=== PATIENT | female | born 1945 | race Caucasian/White ===

== ENCOUNTER → 2017-07-13 12:26 | Outpatient (CLI) | payer MEDICARE, SELFPAY ==
[2017-07-13 18:12] LABS: Amphetamine/Metha Screen,Urine Negative ng/mL (<1000); Barbiturates Screen,Urine Negative ng/mL (<200); Benzodiazepines Screen,Urine Negative ng/mL (200); Cannabinoid Screen,Urine Negative ng/mL (<50); Cocaine Screen,Urine Negative ng/g (<300); Methadone Screen,Urine Negative ng/mL (<300); Opiate Screen,Urine Positive ng/mL (<300); Phencyclidine Screen,Urine Negative ng/mL (<25)
== END ==
PROVIDERS: Visit Provider Emergency Medicine
DX: M51.36 Other intervertebral disc degeneration, lumbar region (principal)
CPT/HCPCS: 80305

== ENCOUNTER → 2017-08-10 13:58 | Outpatient (CLI) | payer MEDICARE, MEDICAID, SELFPAY ==
[2017-08-10 18:37] LABS: Amphetamine/Metha Screen,Urine Negative ng/mL (<1000); Barbiturates Screen,Urine Negative ng/mL (<200); Benzodiazepines Screen,Urine Negative ng/mL (200); Cannabinoid Screen,Urine Negative ng/mL (<50); Cocaine Screen,Urine Negative ng/g (<300); Methadone Screen,Urine Negative ng/mL (<300); Opiate Screen,Urine Positive ng/mL (<300); Phencyclidine Screen,Urine Negative ng/mL (<25)
== END ==
PROVIDERS: Visit Provider Emergency Medicine
DX: M51.36 Other intervertebral disc degeneration, lumbar region (principal)
CPT/HCPCS: 80305

== ENCOUNTER → 2017-09-05 13:45 | Outpatient (REF) | payer MEDICARE, SELFPAY ==
[2017-09-06 19:48] LABS: Amphetamine/Metha Screen,Urine Negative ng/mL (<1000); Barbiturates Screen,Urine Negative ng/mL (<200); Benzodiazepines Screen,Urine Negative ng/mL (200); Cannabinoid Screen,Urine Negative ng/mL (<50); Cocaine Screen,Urine Negative ng/g (<300); Methadone Screen,Urine Negative ng/mL (<300); Opiate Screen,Urine Positive ng/mL (<300); Phencyclidine Screen,Urine Negative ng/mL (<25)
== END ==
LOC: LAB 13:45
PROVIDERS: Visit Provider Emergency Medicine
DX: M51.36 Other intervertebral disc degeneration, lumbar region (principal)
CPT/HCPCS: 80305

== ENCOUNTER → 2017-09-05 16:03 | Outpatient (REF) | payer MEDICARE, SELFPAY ==
[2017-09-05 18:09] LABS: Basophils % 0.4 % (0.1-2.0); Eosinophils # 0.2 K/mm3 (0.0-0.4); Eosinophils % 2.9 % (0.1-12.0); Hematocrit 37.3 % (37.0-47.0); Hemoglobin 12.8 g/dL (12.2-16.2); Lymphocytes # 1.7 K/mm3 (0.7-4.5); Mean Corpuscular HGB Conc 34.4 g/dL (31.8-35.4); Mean Corpuscular Hemoglobin 35.2 pg (27.0-31.2); Mean Corpuscular Volume 102.3 fl (81-99); Monocytes # 0.3 K/mm3 (0.1-1.0); Monocytes % 5.8 % (1.7-9.3); Neutrophils # 3.4 K/mm3 (1.8-7.8); Neutrophils % 60.9 % (37.0-80.0); Platelet Count 282 K/mm3 (142-424); Red Blood Count 3.64 M/mm3 (4.20-5.40); Red Cell Distribution Width 13.1 % (11.5-17.5); White Blood Count 5.7 K/mm3 (4.8-10.8)
[2017-09-05 19:13] LABS: Erythrocyte Sedimentation Rate 36 mm/hr (0-30)
[2017-09-05 19:40] LABS: Alanine Aminotransferase 28 U/L (12-78); Albumin Level 4.7 gm/dL (3.4-5.0); Albumin/Globulin Ratio 1.3 (1.1-1.8); Alkaline Phosphatase 72 U/L (46-116); Anion Gap 23.4 mEq/L (5-15); Aspartate Amino Transferase 25 U/L (15-37); Bilirubin,Total 0.2 mg/dL (0.2-1.0); Blood Urea Nitrogen 29 mg/dL (7-18); Calcium 9.8 mg/dL (8.5-10.1); Carbon Dioxide 17 mmol/L (21.0-32.0); Chloride 94 mmol/L (98-107); Estimated Glomerular Filt Rate 26 ml/min (>60); Free T4 (Free Thyroxine) 0.84 ng/dl (0.76-1.46); GFR (African American) 31 ML/MIN (>60); Globulin 3.7 gm/dl (1.3-3.2); Glucose 80 mg/dL (74-106); Potassium 4.4 mmoL/L (3.5-5.1); Sodium 130 mmol/L (136-145); Total Protein,Serum 8.4 gm/dL (6.4-8.2)
[2017-09-07 20:10] LABS: Vitamin D 25 Hydroxy 12.7 ng/mL (30.0-100.0)
[2017-09-07 20:11] LABS: Vitamin B12 368 pg/mL (232-1245)
== END ==
LOC: LAB 16:03
PROVIDERS: Visit Provider Emergency Medicine
DX: M54.9 Dorsalgia, unspecified (principal); I10 Essential (primary) hypertension; M51.36 Other intervertebral disc degeneration, lumbar region
CPT/HCPCS: 80053; 80305; 82607; 82652; 84439; 84443; 85025; 85651

== ENCOUNTER → 2017-09-26 15:53 | Outpatient (REF) | payer MEDICARE, MEDICAID, SELFPAY ==
[2017-09-26 19:16] LABS: Amphetamine/Metha Screen,Urine Negative ng/mL (<1000); Barbiturates Screen,Urine Negative ng/mL (<200); Benzodiazepines Screen,Urine Negative ng/mL (200); Cannabinoid Screen,Urine Negative ng/mL (<50); Cocaine Screen,Urine Negative ng/g (<300); Methadone Screen,Urine Negative ng/mL (<300); Opiate Screen,Urine Positive ng/mL (<300); Phencyclidine Screen,Urine Negative ng/mL (<25)
== END ==
LOC: LAB 15:53
PROVIDERS: Visit Provider Emergency Medicine
DX: M51.36 Other intervertebral disc degeneration, lumbar region (principal)
CPT/HCPCS: 80305

== ENCOUNTER → 2017-11-08 08:46 | Outpatient (CLI) | payer MEDICARE, MEDICAID, SELFPAY ==
--- NOTE | 2017-11-08 08:54 | FL_ITS ---
[place] barium swallow Ordering Physician: Aiden Hernandez MD Patient Age: 72 years: Female HISTORY: ITS.REASON: dysphagia The patient reports that discomfort mid thoracic esophagus. This occurs after meal rather than during meal? Food sticks in this area at times. TECHNIQUE: Barium swallow, esophagram evaluation of esophagus under fluoroscopy performed by Dr. Alcala. 1 minute 37 seconds fluoroscopy time. COMPARISON :No previous esophageal studies. Chest film 08/11/2016 used for comparison. FINDINGS Cervical Esophagus. Prominent cricopharyngeus muscle noted. It indents the posterior cervical esophagus does relax for the most part as a swallow progresses.. Fair strength of the swallowing mechanism. There is some mild residual in the vallecula and piriform sinuses which clears with repeat swallowing. No aspiration. The patient has had previous anterior discectomy C6/7. However this does NOT appear to significantly impinge upon the posterior aspect of the cervical esophagus. I noted the anterior marginal osteophytes C5-C6 Thoracic Esophagus. : No new lesions evident. No restriction. Normal anatomy. Normal peristalsis. No hiatal hernia with Valsalva maneuver during drinking Patient does have moderate phrenic ampulla with smooth tapering just above this. However this region throughout the distal esophagus distensible. No ulcers,. No prominent nor irregular mucosal folds evident. No remarkable GE reflux was observed during the course of the study. Brief viewing of stomach under fluoroscopy show no prominent findings here. . IMPRESSION 1 patient reports discomfort and symptoms mid thoracic esophagus. -However thoracic esophagus appears satisfactory on today's barium swallow with no significant findings. No lesion. No spasm encountered 2. At cervical esophagus there is a generous cricopharyngeus muscle seen with swallowing, but it does seem to relax for the most part as the swallow progresses
== END ==
PROVIDERS: PCP Emergency Medicine; Visit Provider Emergency Medicine
DX: R13.10 Dysphagia, unspecified (principal)
CPT/HCPCS: 74220

== ENCOUNTER → 2017-12-12 15:01 | Outpatient (REF) | payer MEDICARE, SELFPAY ==
[2017-12-12 19:04] LABS: Amphetamine/Metha Screen,Urine Negative ng/mL (<1000); Barbiturates Screen,Urine Negative ng/mL (<200); Benzodiazepines Screen,Urine Negative ng/mL (<200); Cannabinoid Screen,Urine Negative ng/mL (<50); Cocaine Screen,Urine Negative ng/mL (<300); Methadone Screen,Urine Negative ng/mL (<300); Opiate Screen,Urine Positive ng/mL (<300); Phencyclidine Screen,Urine Negative ng/mL (<25)
== END ==
LOC: LAB 15:01
PROVIDERS: Visit Provider Emergency Medicine
DX: M51.36 Other intervertebral disc degeneration, lumbar region (principal)
CPT/HCPCS: 80305

== ENCOUNTER → 2018-01-08 15:28 | Outpatient (REF) | payer MEDICARE, SELFPAY ==
[2018-01-08 19:21] LABS: Amphetamine/Metha Screen,Urine Negative ng/mL (<1000); Barbiturates Screen,Urine Negative ng/mL (<200); Benzodiazepines Screen,Urine Negative ng/mL (<200); Cannabinoid Screen,Urine Negative ng/mL (<50); Cocaine Screen,Urine Negative ng/mL (<300); Methadone Screen,Urine Negative ng/mL (<300); Opiate Screen,Urine Positive ng/mL (<300); Phencyclidine Screen,Urine Negative ng/mL (<25)
== END ==
LOC: LAB 15:28
PROVIDERS: Visit Provider Emergency Medicine
DX: M51.36 Other intervertebral disc degeneration, lumbar region (principal)
CPT/HCPCS: 80305

== ENCOUNTER → 2018-02-06 19:38 | Outpatient (REF) | payer MEDICARE, SELFPAY ==
[2018-02-06 22:35] LABS: Amphetamine/Metha Screen,Urine Negative ng/mL (<1000); Barbiturates Screen,Urine Negative ng/mL (<200); Benzodiazepines Screen,Urine Negative ng/mL (<200); Cannabinoid Screen,Urine Negative ng/mL (<50); Cocaine Screen,Urine Negative ng/mL (<300); Methadone Screen,Urine Negative ng/mL (<300); Opiate Screen,Urine Positive ng/mL (<300); Phencyclidine Screen,Urine Negative ng/mL (<25)
== END ==
LOC: LAB 19:38
PROVIDERS: PCP Nurse Practitioner Family; Visit Provider Nurse Practitioner Family
DX: M54.5 Low back pain (principal)
CPT/HCPCS: 80305

== ENCOUNTER → 2018-03-14 13:51 | Outpatient (CLI) | payer MEDICARE, SELFPAY ==
--- NOTE | 2018-03-14 13:57 | XR_ITS ---
EXAM: XR lumbar spine 2-3V HISTORY: Low back pain ITS.REASON: back pain from fall ORDERING PHYSICIAN: Tana Austin PATIENT AGE: 72 years COMPARISON: 09/01/16 FINDINGS: Dextroscoliosis measuring 22 degrees with degenerative disc disease at L3-L4 L4-L5 and L5-S1. Prior posterior fusion at L5-S1 with interpedicular screws and disc spacer device present there is lumbarization of S1. No fracture or dislocation. No lytic or blastic change. Overall no significant change from the previous exam. There are 2 calcific densities inferior to the left L1 transverse process and could be due to renal stones measuring up to 5 mm. IMPRESSION: Dextroscoliosis with degenerative disc disease and postsurgical changes overall not significant change. Possible left nephrolithiasis
--- NOTE | 2018-03-14 13:57 | XR_ITS ---
XR hip LT 2-3V w/pelvis HISTORY: Left hip pain ITS.REASON: hip pain ORDERING PHYSICIAN: Tana Austin PATIENT AGE: 72 years FINDINGS: There is a bipolar prosthesis present which is in good alignment. No evidence of orthopedic complications. Prior fusion L4-L5. There are mild osteoarthritic changes of the right hip as seen on the frontal view of the pelvis. There is lumbar scoliosis convex right with degenerative changes in the lumbar spine. IMPRESSION: No acute finding. Degenerative changes as described above. No acute finding of left hip prosthesis with no change from 08/03/2016
== END ==
PROVIDERS: PCP Nurse Practitioner Family; Visit Provider Nurse Practitioner Family
DX: M25.552 Pain in left hip (principal); M51.36 Other intervertebral disc degeneration, lumbar region
CPT/HCPCS: 72100; 73502

== ENCOUNTER → 2018-04-10 18:11 | Outpatient (CLI) | payer MEDICARE, SELFPAY ==
[2018-04-10 19:15] LABS: Blood Urea Nitrogen 25 mg/dL (7-18); Calcium 8.7 mg/dL (8.5-10.1); Carbon Dioxide 18 mmol/L (21.0-32.0); Chloride 106 mmol/L (98-107); Creatinine,Serum 1.83 mg/dL (0.55-1.02); Estimated Glomerular Filt Rate 27 ml/min (>60); GFR (African American) 33 ML/MIN (>60); Glucose 83 mg/dL (74-106); Sodium 139 mmol/L (136-145)
[2018-04-10 21:50] LABS: Amphetamine/Metha Screen,Urine Negative ng/mL (<1000); Barbiturates Screen,Urine Negative ng/mL (<200); Benzodiazepines Screen,Urine Negative ng/mL (<200); Cannabinoid Screen,Urine Negative ng/mL (<50); Cocaine Screen,Urine Negative ng/mL (<300); Methadone Screen,Urine Negative ng/mL (<300); Opiate Screen,Urine Positive ng/mL (<300); Phencyclidine Screen,Urine Negative ng/mL (<25)
== END ==
PROVIDERS: Visit Provider Emergency Medicine
DX: N28.9 Disorder of kidney and ureter, unspecified (principal); M51.36 Other intervertebral disc degeneration, lumbar region
CPT/HCPCS: 80048; 80305

== ENCOUNTER → 2018-06-10 17:31 | Outpatient (CLI) | payer MEDICARE, SELFPAY ==
[2018-06-10 18:25] LABS: Amphetamine/Metha Screen,Urine Negative ng/mL (<1000); Barbiturates Screen,Urine Negative ng/mL (<200); Benzodiazepines Screen,Urine Negative ng/mL (<200); Cannabinoid Screen,Urine Negative ng/mL (<50); Cocaine Screen,Urine Negative ng/mL (<300); Methadone Screen,Urine Negative ng/mL (<300); Opiate Screen,Urine Positive ng/mL (<300); Phencyclidine Screen,Urine Negative ng/mL (<25)
== END ==
PROVIDERS: Visit Provider Nurse Practitioner Family
DX: Z79.899 Other long term (current) drug therapy (principal)
CPT/HCPCS: 80305

== ENCOUNTER → 2018-09-10 18:10 | Outpatient (CLI) | payer MEDICARE, SELFPAY ==
[2018-09-10 20:56] LABS: Amphetamine/Metha Screen,Urine Negative ng/mL (<1000); Barbiturates Screen,Urine Negative ng/mL (<200); Benzodiazepines Screen,Urine Negative ng/mL (<200); Cannabinoid Screen,Urine Negative ng/mL (<50); Cocaine Screen,Urine Negative ng/mL (<300); Methadone Screen,Urine Negative ng/mL (<300); Opiate Screen,Urine Positive ng/mL (<300); Phencyclidine Screen,Urine Negative ng/mL (<25)
== END ==
PROVIDERS: Visit Provider Emergency Medicine
DX: Z79.899 Other long term (current) drug therapy (principal)
CPT/HCPCS: 80305

== ENCOUNTER → 2018-09-12 13:32 | Outpatient (CLI) | payer MEDICARE, SELFPAY ==
[2018-09-12 15:41] LABS: Anion Gap 16.5 mEq/L (5-15); Blood Urea Nitrogen 33 mg/dL (7-18); Carbon Dioxide 22 mmol/L (21.0-32.0); Chloride 105 mmol/L (98-107); Estimated Glomerular Filt Rate 23 ml/min (>60); GFR (African American) 28 ML/MIN (>60); Glucose 89 mg/dL (74-106); Potassium 4.5 mmoL/L (3.5-5.1); Sodium 139 mmol/L (136-145)
== END ==
PROVIDERS: Visit Provider Emergency Medicine
DX: N28.9 Disorder of kidney and ureter, unspecified (principal)
CPT/HCPCS: 36415; 80048

== ENCOUNTER → 2018-11-08 17:50 | Outpatient (CLI) | payer MEDICARE, SELFPAY ==
[2018-11-08 18:17] LABS: Anion Gap 16.2 mEq/L (5-15); Blood Urea Nitrogen 26 mg/dL (7-18); Carbon Dioxide 21 mmol/L (21.0-32.0); Chloride 104 mmol/L (98-107); Creatinine,Serum 1.86 mg/dL (0.55-1.02); Estimated Glomerular Filt Rate 26 ml/min (>60); GFR (African American) 32 ML/MIN (>60); Glucose 91 mg/dL (74-106); Potassium 5.2 mmoL/L (3.5-5.1); Sodium 136 mmol/L (136-145)
== END ==
PROVIDERS: Visit Provider Emergency Medicine
DX: I10 Essential (primary) hypertension (principal); N28.9 Disorder of kidney and ureter, unspecified
CPT/HCPCS: 80048

== ENCOUNTER → 2018-12-06 17:13 | Outpatient (CLI) | payer MEDICARE, SELFPAY ==
[2018-12-06 18:36] LABS: Amphetamine/Metha Screen,Urine Negative ng/mL (<1000); Barbiturates Screen,Urine Negative ng/mL (<200); Benzodiazepines Screen,Urine Negative ng/mL (<200); Cannabinoid Screen,Urine Negative ng/mL (<50); Cocaine Screen,Urine Negative ng/mL (<300); Methadone Screen,Urine Negative ng/mL (<300); Opiate Screen,Urine Positive ng/mL (<300); Phencyclidine Screen,Urine Negative ng/mL (<25)
== END ==
PROVIDERS: Visit Provider Emergency Medicine
DX: M51.36 Other intervertebral disc degeneration, lumbar region (principal)
CPT/HCPCS: 80305

== ENCOUNTER → 2019-01-15 13:02 | Outpatient (CLI) | payer MEDICARE, SELFPAY ==
--- NOTE | 2019-01-15 13:04 | US_ITS ---
APPROVED REPORT Exam Type: Lower Extremity Segmental Pressures Certified Orthotist/Pedorthist: Bailey Kasper RVT Indications Claudication: Bilaterally Rest Pain: Bilaterally PAD Current Smoker Risk Factors Hypertension Current Smoker Pressures/Indices Right Indices Left Indices Brachial 192.00 mmHg Brachial 191.00 mmHg Low Thigh 181.00 mmHg 0.94 Low Thigh 174.00 mmHg 0.91 Calf 167.00 mmHg 0.87 Calf 174.00 mmHg 0.91 Ankle(PT) 167.00 mmHg 0.87 Ankle(PT) 169.00 mmHg 0.88 Ankle(DP) 182.00 mmHg 0.95 Ankle(DP) 184.00 mmHg 0.96 Digit 100.00 mmHg 0.52 Digit 119.00 mmHg 0.62 Findings RT YAA:0.87 LT YAA:0.88 RT TBI:0.52 LT TBI:0.62 NORMAL PULSES BILATERALLY. WAVEFORMS DECREASED AT ANKLES BILATERALLY. Conclusion YAA's and TBI's at lower limits of normal NORMAL PULSES BILATERALLY. WAVEFORMS DECREASED AT ANKLES BILATERALLY Electronically signed by : Norberto Myers MD 01/20/2019 19:29:59
== END ==
PROVIDERS: PCP Emergency Medicine; Visit Provider Emergency Medicine
DX: I73.9 Peripheral vascular disease, unspecified (principal)
CPT/HCPCS: 93923

== ENCOUNTER → 2019-01-15 13:57 | Outpatient (POV) | payer MEDICARE, SELFPAY | PROVIDERS: Visit Provider Internal Medicine Nephrology | DX: Z00.00 Encounter for general adult medical examination without abnormal findings (principal) ==

== ENCOUNTER → 2019-01-27 17:17 | Outpatient (CLI) | payer MEDICARE, SELFPAY ==
[2019-01-27 17:42] LABS: Basophils % 0.3 % (0.1-2.0); Eosinophils # 0.1 K/mm3 (0.0-0.4); Eosinophils % 1.6 % (0.1-12.0); Hematocrit 41.6 % (37.0-47.0); Hemoglobin 12.4 g/dL (12.2-16.2); Lymphocytes # 2.5 K/mm3 (0.7-4.5); Lymphocytes % 30.3 % (10-50); Mean Corpuscular HGB Conc 29.7 g/dL (31.8-35.4); Mean Corpuscular Hemoglobin 31.4 pg (27.0-31.2); Mean Corpuscular Volume 105.6 fl (81-99); Mean Platelet Volume 8.3 fl (7.4-10.4); Monocytes # 0.5 K/mm3 (0.1-1.0); Monocytes % 6.1 % (1.7-9.3); Neutrophils # 5.2 K/mm3 (1.8-7.8); Neutrophils % 61.6 % (37.0-80.0); Platelet Count 416 K/mm3 (142-424); Red Blood Count 3.94 M/mm3 (4.20-5.40); Red Cell Distribution Width 15.7 % (11.5-17.5); White Blood Count 8.4 K/mm3 (4.8-10.8)
[2019-01-27 18:28] LABS: Anion Gap 19.6 mEq/L (5-15); Blood Urea Nitrogen 25 mg/dL (7-18); Calcium 9.3 mg/dL (8.5-10.1); Carbon Dioxide 21 mmol/L (21.0-32.0); Chloride 100 mmol/L (98-107); Creatinine,Serum 1.82 mg/dL (0.55-1.02); Estimated Glomerular Filt Rate 27 ml/min (>60); GFR (African American) 33 ML/MIN (>60); Glucose 87 mg/dL (74-106); Potassium 4.6 mmoL/L (3.5-5.1); Sodium 136 mmol/L (136-145)
[2019-01-31 17:25] LABS: Folate 6.2 ng/mL (>3.0); Vitamin B12 913 pg/mL (232-1245)
== END ==
PROVIDERS: Visit Provider Emergency Medicine
DX: M54.9 Dorsalgia, unspecified (principal); R53.83 Other fatigue; R71.8 Other abnormality of red blood cells
CPT/HCPCS: 80048; 82607; 82746; 85025

== ENCOUNTER → 2019-03-26 16:55 | Outpatient (CLI) | payer MEDICARE, SELFPAY ==
[2019-03-26 19:19] LABS: Amphetamine/Metha Screen,Urine Negative ng/mL (<1000); Barbiturates Screen,Urine Negative ng/mL (<200); Benzodiazepines Screen,Urine Negative ng/mL (<200); Cannabinoid Screen,Urine Negative ng/mL (<50); Cocaine Screen,Urine Negative ng/mL (<300); Methadone Screen,Urine Negative ng/mL (<300); Opiate Screen,Urine Positive ng/mL (<300); Phencyclidine Screen,Urine Negative ng/mL (<25)
[2019-03-28 16:57] LABS: Peripheral Smear Review Scanned Result
== END ==
PROVIDERS: Visit Provider Emergency Medicine
DX: M51.36 Other intervertebral disc degeneration, lumbar region (principal); M54.9 Dorsalgia, unspecified
CPT/HCPCS: 80305

== ENCOUNTER → 2019-05-21 18:06 | Outpatient (CLI) | payer MEDICARE, SELFPAY ==
[2019-05-21 20:37] LABS: Amphetamine/Metha Screen,Urine Negative ng/mL (<1000); Barbiturates Screen,Urine Negative ng/mL (<200); Benzodiazepines Screen,Urine Negative ng/mL (<200); Cannabinoid Screen,Urine Negative ng/mL (<50); Cocaine Screen,Urine Negative ng/mL (<300); Methadone Screen,Urine Negative ng/mL (<300); Opiate Screen,Urine Positive ng/mL (<300); Phencyclidine Screen,Urine Negative ng/mL (<25)
== END ==
PROVIDERS: Visit Provider Emergency Medicine
DX: M51.36 Other intervertebral disc degeneration, lumbar region (principal)
CPT/HCPCS: 80305

== ENCOUNTER → 2020-06-30 17:22 | Outpatient (CLI) | payer MEDICARE, SELFPAY ==
[2020-06-30 18:06] LABS: Basophils % 0.5 % (0.1-2.0); Eosinophils # 0.1 K/mm3 (0.0-0.4); Eosinophils % 1.8 % (0.1-12.0); Hematocrit 36.9 % (37.0-47.0); Hemoglobin 11.5 g/dL (12.2-16.2); Lymphocytes # 1.8 K/mm3 (0.7-4.5); Lymphocytes % 31.6 % (10-50); Mean Corpuscular HGB Conc 31.2 g/dL (31.8-35.4); Mean Corpuscular Hemoglobin 32.7 pg (27.0-31.2); Mean Corpuscular Volume 104.9 fl (81-99); Mean Platelet Volume 8.1 fl (7.4-10.4); Monocytes # 0.3 K/mm3 (0.1-1.0); Neutrophils # 3.4 K/mm3 (1.8-7.8); Neutrophils % 60.1 % (37.0-80.0); Platelet Count 286 K/mm3 (142-424); Red Blood Count 3.52 M/mm3 (4.20-5.40); Red Cell Distribution Width 16.5 % (11.5-17.5); White Blood Count 5.6 K/mm3 (4.8-10.8)
[2020-06-30 18:31] LABS: Chloride 108 mmol/L (98-107); Potassium 4.6 mmoL/L (3.5-5.1); Sodium 140 mmol/L (136-145)
[2020-06-30 18:33] LABS: Alanine Aminotransferase 10 U/L (12-78); Alkaline Phosphatase 88 U/L (38-126); Amylase 131 U/L (30-110); Anion Gap 17.6 mEq/L (5-15); Aspartate Amino Transferase 27 U/L (14-36); Bilirubin,Total 0.4 mg/dl (0.2-1.3); Blood Urea Nitrogen 24 mg/dl (7-17); Calcium 9.8 mg/dl (8.4-10.2); Carbon Dioxide 19 mmol/L (22.0-30.0); Estimated Glomerular Filt Rate 29 ml/min (>60); GFR (African American) 35 ML/MIN (>60); Glucose 93 mg/dl (74-100); HDL Cholesterol 56 mg/dl (40-60); Lipase 189 U/L (23-300)
[2020-06-30 18:34] LABS: Albumin Level 4.7 g/dl (3.5-5.0); Albumin/Globulin Ratio 1.3 (1.1-1.8); Chol/HDL Ratio 3.8 (1-3.5); Cholesterol 214 mg/dl (140-200); Globulin 3.6 g/dL (1.3-3.2); Total Protein,Serum 8.3 g/dl (6.3-8.2); Triglycerides 175 mg/dl (30-150); VLDL Cholesterol 35 mg/dL (0-40)
[2020-06-30 18:48] LABS: 25-OH Vitamin D, Total 16.4 ng/mL (30-100)
[2020-06-30 20:17] LABS: Benzodiazepines Screen,Urine Negative ng/ml (<200)
[2020-06-30 20:18] LABS: Amphetamine/Metha Screen,Urine Negative ng/ml (<1000)
[2020-06-30 20:19] LABS: Barbiturates Screen,Urine Negative ng/ml (<200); Cannabinoid Screen,Urine Negative ng/ml (<50)
[2020-06-30 20:20] LABS: Cocaine Screen,Urine Negative ng/ml (<300)
[2020-06-30 20:21] LABS: Methadone Screen,Urine Negative ng/ml (<300); Opiate Screen,Urine Positive ng/ml (<300)
[2020-06-30 20:22] LABS: Phencyclidine Screen,Urine Negative ng/ml (<25)
[2020-06-30 21:29] LABS: Free T4 (Free Thyroxine) 1.02 ng/dl (0.78-2.19)
[2020-06-30 21:42] LABS: Thyroid Stimulating Hormone 2.62 uIU/mL (0.465-4.68)
== END ==
PROVIDERS: Visit Provider Emergency Medicine
DX: Z00.00 Encounter for general adult medical examination without abnormal findings (principal); Z72.0 Tobacco use; I10 Essential (primary) hypertension; M51.36 Other intervertebral disc degeneration, lumbar region; E55.9 Vitamin D deficiency, unspecified; Z79.899 Other long term (current) drug therapy
CPT/HCPCS: 80053; 80061; 80305; 82150; 82306; 83690; 84439; 84443; 85025

== ENCOUNTER → 2020-08-31 17:03 | Outpatient (CLI) | payer MEDICARE, SELFPAY ==
[2020-09-01 12:08] LABS: Chloride 106 mmol/L (98-107); Sodium 138 mmol/L (136-145)
[2020-09-01 12:09] LABS: Potassium 4.4 mmoL/L (3.5-5.1)
[2020-09-01 12:12] LABS: Anion Gap 16.4 mEq/L (5-15); Blood Urea Nitrogen 26 mg/dl (7-17); Calcium 9.3 mg/dl (8.4-10.2); Carbon Dioxide 20 mmol/L (22.0-30.0); Estimated Glomerular Filt Rate 26 ml/min (>60); GFR (African American) 31 ML/MIN (>60); Glucose 91 mg/dl (74-100)
== END ==
PROVIDERS: Visit Provider Emergency Medicine
DX: N28.9 Disorder of kidney and ureter, unspecified (principal)
CPT/HCPCS: 80048

== ENCOUNTER → 2021-02-21 21:28 | Outpatient (CLI) | payer MEDICARE, SELFPAY ==
[2021-02-21 22:47] LABS: Amphetamine/Metha Screen,Urine Negative ng/ml (<1000)
[2021-02-21 22:48] LABS: Barbiturates Screen,Urine Negative ng/ml (<200)
[2021-02-21 22:50] LABS: Benzodiazepines Screen,Urine Negative ng/ml (<200)
[2021-02-21 22:51] LABS: Cannabinoid Screen,Urine Negative ng/ml (<50)
[2021-02-21 22:52] LABS: Cocaine Screen,Urine Negative ng/ml (<300)
[2021-02-21 22:53] LABS: Methadone Screen,Urine Negative ng/ml (<300)
[2021-02-21 22:54] LABS: Opiate Screen,Urine Positive ng/ml (<300); Phencyclidine Screen,Urine Negative ng/ml (<25)
== END ==
PROVIDERS: Visit Provider Emergency Medicine
DX: M51.36 Other intervertebral disc degeneration, lumbar region (principal)
CPT/HCPCS: 80305

== ENCOUNTER → 2021-12-20 08:09 | Outpatient (CLI) | payer MEDICARE, SELFPAY ==
[2021-12-20 21:15] LABS: Amphetamine/Metha Screen,Urine Negative ng/ml (<1000)
[2021-12-20 21:16] LABS: Barbiturates Screen,Urine Negative ng/ml (<200)
[2021-12-20 21:17] LABS: Benzodiazepines Screen,Urine Negative ng/ml (<200); Cannabinoid Screen,Urine Negative ng/ml (<50)
[2021-12-20 21:18] LABS: Cocaine Screen,Urine Negative ng/ml (<300)
[2021-12-20 21:19] LABS: Methadone Screen,Urine Negative ng/ml (<300); Opiate Screen,Urine Positive ng/ml (<300)
[2021-12-20 21:20] LABS: Phencyclidine Screen,Urine Negative ng/ml (<25)
== END ==
PROVIDERS: PCP Emergency Medicine; Visit Provider Emergency Medicine
DX: M51.36 Other intervertebral disc degeneration, lumbar region (principal)
CPT/HCPCS: 80305

== ENCOUNTER 2022-03-22 13:05 | Inpatient (IN) | payer MEDICARE, SELFPAY ==
--- NOTE | 2022-03-22 13:09 | CT_ITS ---
FINAL REPORT CLINICAL HISTORY: [facility] COMPARISON: 08/11/2016 FINDINGS: Axial images of the head were obtained without contrast. Coronal reformatted images were also obtained. This study was performed with techniques to keep radiation doses as low as reasonably achievable (ALARA). Individualized dose reduction techniques using automated exposure control or adjustment of mA and/or kV according to the patient's size were employed. There is generalized age-appropriate atrophy. Periventricular low-attenuation areas are seen consistent with mild chronic ischemic changes. There is no evidence of intracranial hemorrhage or mass. There is a small chronic lacunar infarct in the right internal capsule. There is no evidence of acute infarct. There is no evidence of shift of the midline structures. No skull abnormality is seen on the bone window images. IMPRESSION: Atrophy and mild periventricular chronic ischemic changes. No acute intracranial abnormality identified. Reviewed, Interpreted and Dictated by Hunter Rainey III, MD Transcribed by Lorraine Lanier Authenticated and [facility]
--- NOTE | 2022-03-22 13:09 | XR_ITS ---
FINAL REPORT CLINICAL HISTORY: ams COMPARISON: 08/11/2016 FINDINGS: A single portable view of the chest was obtained. The heart size and pulmonary vascularity are within normal limits. The mediastinum is within normal limits. No acute pulmonary abnormality is identified. The bony thorax is intact. IMPRESSION: No active cardiopulmonary disease. Reviewed, Interpreted and Dictated by Hunter Rainey III, MD Transcribed by Brittany Beard Authenticated and [facility]
--- NOTE | 2022-03-22 13:10 | HMH.EDGENADL ---
Discharge Plan Disposition Patient Disposition: Admitted As Inpatient Clinical Impressions Clinical Impression: COPD (chronic obstructive pulmonary disease), Tobacco use, PVD (peripheral vascular disease) with claudication, Low BMI, TIERRA (acute kidney injury), Acute UTI (urinary tract infection), Severe sepsis with acute organ dysfunction, Elevated troponin Discharge ED Provider: Louise Grant Adult HPI <Louise Grant MD - Last Filed: 03/24/22 02:41> General Chief complaint: Altered Mental Status Stated complaint: gen sickness Time Seen by Provider: 03/22/22 13:15 Mode of Arrival: Ambulatory Source of Information: Relative and EMS History of Present Illness HPI narrative: Mrs. Golden is a 76-year-old female PMH for COPD, HTN, tobacco abuse, PVD, alcohol abuse presenting to the emergency department for altered mental status. History provided by patient's family members. Patient was reportedly last seen on Sunday in her normal state of health. However today patient was found altered covered in feces. Patient was also present with her who was also confused and covered in feces. EMS report the entire house was filled with roaches and poor living conditions. On arrival patient pupils are equal and reactive, moving all extremties. Sugar normal on arrival. Patient has had multiple episodes of diarrhea per , however limited history given is also altered and has been is confused at baseline secondary to prior CVA. complaint: Altered mental status Onset (ago): day(s) Related Data Home Medications Medication Instructions Recorded Confirmed amlodipine 5 mg tablet 5 mg PO DAILY Hypertension 03/23/22 03/23/22 fluticasone furoate 100 1 inh inhalation DAILY Breathing 03/23/22 03/23/22 mcg-vilanterol 25 mcg/dose problems inhalation powder (Breo Ellipta) gabapentin 300 mg capsule 300 mg PO BID nerve pain 03/23/22 03/23/22 hydrocodone 7.5 mg-acetaminophen 1 tab PO QIDP PRN Moderate Pain 03/23/22 03/23/22 325 mg tablet (Scale Score 5-6) pantoprazole 40 mg tablet,delayed 40 mg PO DAILY GERD 03/23/22 03/23/22 release ropinirole 2 mg tablet 2 mg PO HS Restless leg 03/23/22 03/23/22 trazodone 50 mg tablet 50 mg PO HS sleep 03/23/22 03/23/22 Allergies Allergy/AdvReac Type Severity Reaction Status Date / Time No Known Allergies Allergy Verified 03/17/22 13:24 <Aiden Hernandez MD - Last Filed: 03/23/22 08:34> General Mode of Arrival: EMS Limitations: Altered Mental Status PFSH <Louise Grant MD - Last Filed: 03/24/22 02:41> [facility] Disclaimer: The information contained in this section may have been updated after the patient was seen, as this information can be updated by other users. Medical History Lumbar degenerative disc disease Lumbar facet arthropathy Lumbar foraminal stenosis Metabolic acidosis Type 2 myocardial infarction Vitamin D deficiency (~09/13/17) Social History Smoking Status: Never smoker alcohol intake: current substance use type: denies use current occupational status: retired Travel in the last 8 weeks: None household members: spouse housing: house <Aiden Hernandez MD - Last Filed: 03/23/22 08:34> ROS Obtained: Yes unobtainable due to mental status Physical Exam <Louise Grant MD - Last Filed: 03/24/22 02:41> General General appearance: lethargic and cachectic Head Head exam: atraumatic and normal inspection Eye Eye exam: Present normal appearance and EOMI ENT ENT exam: Present normal exam and mucous membranes moist Neck Neck exam: Present normal inspection and full ROM Chest Chest inspection: Present normal inspection and symmetric chest wall rise Respiratory Respiratory exam: Present normal lung sounds bilaterally Cardiovascular Cardiovascular exam: Present regular rate and normal heart sounds Abdominal Exam Abdominal exam: Present soft and no
[2022-03-22 13:15] VITALS: BP 187/102; PULSE 111; RESP 20; TEMP 37.3; O2SAT 98; BMI 20.1
[2022-03-22 13:29] LABS: Basophils % 0.4 % (0.1-2.0); Eosinophils # 0.1 K/mm3 (0.0-0.4); Eosinophils % 0.5 % (0.1-12.0); Hematocrit 31.6 % (37.0-47.0); Hemoglobin 9.6 g/dL (12.2-16.2); Lymphocytes # 1.3 K/mm3 (0.7-4.5); Lymphocytes % 13.7 % (10-50); Mean Corpuscular HGB Conc 30.5 g/dL (31.8-35.4); Mean Corpuscular Hemoglobin 34.6 pg (27.0-31.2); Mean Corpuscular Volume 113.8 fl (81-99); Mean Platelet Volume 8.5 fl (7.4-10.4); Monocytes # 0.3 K/mm3 (0.1-1.0); Monocytes % 3.5 % (1.7-9.3); Neutrophils # 7.8 K/mm3 (1.8-7.8); Neutrophils % 81.9 % (37.0-80.0); Platelet Count 252 K/mm3 (142-424); Red Blood Count 2.78 M/mm3 (4.20-5.40); Red Cell Distribution Width 17.2 % (11.5-17.5); White Blood Count 9.6 K/mm3 (4.8-10.8)
[2022-03-22 13:30] VITALS: BP 138/81; PULSE 54; RESP 21; O2SAT 95
[2022-03-22 13:31] LABS: Chloride 123 mmol/L (98-107); Sodium 146 mmol/L (136-145)
[2022-03-22 13:32] LABS: Microscopic, Urine URINE MICROSCOPIC (MICROSCOPIC)
[2022-03-22 13:32] LABS: Adenovirus F 40/41, stool Not Detected (NotDetected); Astrovirus Not Detected (NotDetected); Campylobacter Not Detected (NotDetected); Clostridium Difficile A/B, PCR Not Detected (NotDetected); Cryptosporidium Not Detected (NotDetected); Cyclospora Cayetanesis Not Detected (NotDetected); Entamoeba histolytica Not Detected (NotDetected); Enteroaggregative E coli Not Detected (NotDetected); Enteropathogenic E coli Not Detected (NotDetected); Enterotoxigenic E coli Not Detected (NotDetected); Giardia lamblia Not Detected (NotDetected); Norovirus Not Detected (NotDetected); Plesimonas Shigalloides, PCR Not Detected (NotDetected); Rotavirus A Not Detected (NotDetected); Salmonella, PCR Not Detected (NotDetected); Sapovirus Not Detected (NotDetected); Shiga-like toxin E coli Not Detected (NotDetected); Shigella Enterovasive E coli Not Detected (NotDetected); Vibrio Cholerae Not Detected (NotDetected); Vibrio, PCR Not Detected (NotDetected); Yersinia Entercolitica, PCR Not Detected (NotDetected)
[2022-03-22 13:34] LABS: Alanine Aminotransferase 11 U/L (12-78); Albumin Level 4.1 g/dl (3.5-5.0); Albumin/Globulin Ratio 1.3 (1.1-1.8); Alkaline Phosphatase 63 U/L (38-126); Aspartate Amino Transferase 27 U/L (14-36); Bilirubin,Total 0.2 mg/dl (0.2-1.3); Blood Urea Nitrogen 65 mg/dl (7-17); Estimated Glomerular Filt Rate 8 ml/min (>60); GFR (African American) 10 ML/MIN (>60); Globulin 3.2 g/dL (1.3-3.2); Total Protein,Serum 7.3 g/dl (6.3-8.2)
[2022-03-22 13:35] LABS: Calcium 8.1 mg/dl (8.4-10.2); Glucose 96 mg/dl (74-100)
[2022-03-22 13:35] LABS: Appearance,Urine CLEAR (Clear); Bilirubin,Urine Negative (Negative); Blood, Urine 1+ (Negative); Color,Urine YELLOW (Yellow); Glucose,Urine (UA) Negative (Negative); Ketones,Urine Negative (Negative); Leukocyte Esterase,Urine 1+ (Negative); Nitrate,Urine Negative (Negative); Protein,Urine 2+ (Negative); Specific Gravity, Urine 1.015 (1.005-1.030); Urobilinogen,Urine 0.2 EU/dl (0.2)
[2022-03-22 13:58] LABS: Carbon Dioxide < 5 mmol/L (22.0-30.0); Troponin I 0.88 ng/ml (0.00-0.034)
--- NOTE | 2022-03-22 14:11 | ECG_ITS ---
APPROVED REPORT Exam: Resting ECG HR:114 bpm ECG Measurements Heart Rate 114 AXES NM 159 P 72 QRSd 83 QRS 74 QT 362 T 71 QTc 430 Conclusion SINUS TACHYCARDIA MODERATE ST DEPRESSION [0.05+ mV ST DEPRESSION] ABNORMAL ECG UNCONFIRMED REPORT Electronically signed by : Dario Diloln MD 03/23/2022 20:17:44
[2022-03-22 14:25] LABS: Bacteria,Urine Trace /lpf; Squamous Epithelial Cell,Urine Occasional #/hpf (0-5)
[2022-03-22 14:30] VITALS: BP 164/81; PULSE 94; O2SAT 95
[2022-03-22 15:02] VITALS: BP 119/59; PULSE 94; O2SAT 95
--- NOTE | 2022-03-22 15:12 | PC.NURSE ---
called pharmacy to mix drip
[2022-03-22 15:18] LABS: ABG Base Excess -26.5 mmol/L (-2.4-2.3); ABG HCO3 4.4 mmhg (22.0-26.0); ABG Oxygen Saturation 99 % (90-100); ABG PO2 111.4 mmhg (80-100); ABG TCO2 4.9 mmhg (23-27)
[2022-03-22 15:20] LABS: Oxygen R/A %; Source Right Brachial
[2022-03-22 15:21] LABS: ABG PH 7.03 mmol/L (7.35-7.45)
[2022-03-22 15:21] LABS: Ethyl Alcohol < 10 mg/dl (0-10); Salicylate < 1.0 mg/dL (2.0-20.0)
[2022-03-22 15:32] LABS: Coronavirus 19, PCR Not Detected (NotDetected); Influenza A, PCR Not Detected (NotDetected); Influenza B, PCR Not Detected (NotDetected)
--- NOTE | 2022-03-22 15:37 | PC.NURSE ---
ER doctor asked to call surrounding hospitals for this pt with the possibility of needing dialysis, called all the [facility]. [facility], [facility]. [facility]. All hospitals declined due to no bed availability
[2022-03-22 15:44] LABS: Lactic Acid 0.7 mmol/L (0.7-2.1)
--- NOTE | 2022-03-22 15:48 | PC.NURSE ---
[facility] called and declined due to no bed availability
[2022-03-22 15:52] LABS: Troponin I 0.81 ng/ml (0.00-0.034)
--- NOTE | 2022-03-22 16:09 | PC.NURSE ---
called [facility] and they have no bed availability
[2022-03-22 16:23] LABS: Procalcitonin 63.5 ng/mL (0.0-2.0)
[2022-03-22 17:21] LABS: ABG Base Excess -23.9 mmol/L (-2.4-2.3); ABG HCO3 5.6 mmhg (22.0-26.0); ABG Oxygen Saturation 99 % (90-100); ABG PO2 100.4 mmhg (80-100); ABG TCO2 6.1 mmhg (23-27); Allen's Test Acceptable; Oxygen 21 %; Source Right Brachial
[2022-03-22 17:23] LABS: ABG PCO2 17.9 mmhg (35.0-45.0); ABG PH 7.11 mmol/L (7.35-7.45)
--- NOTE | 2022-03-22 17:23 | PC.NURSE ---
aware of abg results
[2022-03-22 19:13] LABS: Troponin I 1.13 ng/ml (0.00-0.034)
[2022-03-22 19:37] LABS: ABG Base Excess -21.7 mmol/L (-2.4-2.3); ABG HCO3 6.7 mmhg (22.0-26.0); ABG Oxygen Saturation 99 % (90-100); ABG PO2 106.5 mmhg (80-100); ABG TCO2 7.2 mmhg (23-27); Allen's Test Acceptable; Oxygen 21 %; Source Right Radial
[2022-03-22 19:39] LABS: ABG PCO2 18.3 mmhg (35.0-45.0); ABG PH 7.18 mmol/L (7.35-7.45)
[2022-03-22 20:39] LABS: ABG Base Excess -20.5 mmol/L (-2.4-2.3); ABG HCO3 7.3 mmhg (22.0-26.0); ABG Oxygen Saturation 99 % (90-100); ABG PH 7.22 mmol/L (7.35-7.45); ABG PO2 103.8 mmhg (80-100); ABG TCO2 7.8 mmhg (23-27); Allen's Test Acceptable; Oxygen 21 %; Source Right Radial
[2022-03-22 20:41] LABS: ABG PCO2 18.4 mmhg (35.0-45.0)
[2022-03-22 21:45] LABS: ABG Base Excess -19.6 mmol/L (-2.4-2.3); ABG HCO3 7.9 mmhg (22.0-26.0); ABG Oxygen Saturation 99 % (90-100); ABG PH 7.23 mmol/L (7.35-7.45); ABG PO2 103.7 mmhg (80-100); ABG TCO2 8.5 mmhg (23-27)
[2022-03-22 21:46] LABS: Allen's Test Acceptable; Oxygen 21 %; Source Left Brachial
[2022-03-22 21:47] LABS: ABG PCO2 19.4 mmhg (35.0-45.0)
[2022-03-22 22:42] LABS: ABG Base Excess -18.3 mmol/L (-2.4-2.3); ABG HCO3 8.6 mmhg (22.0-26.0); ABG Oxygen Saturation 99 % (90-100); ABG PH 7.27 mmol/L (7.35-7.45); ABG PO2 104.7 mmhg (80-100); ABG TCO2 9.2 mmhg (23-27)
[2022-03-22 22:43] LABS: Allen's Test Acceptable; Oxygen 21 %; Source Left Brachial
[2022-03-22 22:45] LABS: ABG PCO2 19.3 mmhg (35.0-45.0)
--- NOTE | 2022-03-22 23:30 | PC.NURSE ---
Due to the fact that the patient has been in the ED for several hours and is unlikely to be transferred at
--- NOTE | 2022-03-22 23:30 | PC.NURSE ---
Due to the fact that the patient has been here in a stretcher for several hours and is unlikely to be transferred to another facility tonight, patient was placed in a regular hospital bed to ensure her skin integrity. Large mepilex was applied to patients sacrum, sacrum has blanchable but reddened skin on her sacrum. Mepilex applied with barrier cream to ensure that patient does not have further skin breakdown or deterioration. Patient was moved from ER bed 4 to ER bed 6 so the staff could see her to reduce her risk of falls. Patient has not attempted to get out of bed but has been fidgetey throughout the night. Patient is currently resting and appears to be comfortable.
[2022-03-23] VITALS (23 sets, daily range): BP systolic 72–161; BP diastolic 42–109; PULSE 66–94; RESP 15–20; TEMP 36.6–37; O2SAT 90–100; BMI 18.5
--- NOTE | 2022-03-23 | XR_ITS ---
PROCEDURE INFORMATION: Exam: XR Pelvis Exam date and time: 03/23/2022 12:03 AM Age: 76 years old Clinical indication: Injury or trauma; Fall; Blunt trauma (contusions or hematomas); Does not apply; Pelvic region; Prior surgery; Additional info: Prior fall TECHNIQUE: Imaging protocol: Radiologic exam of the pelvis. Views: 1 or 2 view. COMPARISON: CR HIPCMLT XR hip LT 2-3V w/pelvis 03/14/2018 2:00 PM FINDINGS: Tubes, catheters and devices: Bladder catheter is in place. Bones/joints: Bipolar left hip prosthesis is normally aligned. The inferior stem of the prosthesis is not included on this study. Right hip is normal. The bony pelvis is intact. There is no acute fracture. The SI joints and pubic symphysis are unremarkable. Posterior hardware and interbody fusion is present at L4-L5. There is a scoliosis of the spine convex right centered at L2-L3 with slight right lateral listhesis of L3 on L4. Soft tissues: Unremarkable. IMPRESSION: No acute fracture.
[2022-03-23 00:32] LABS: ABG Base Excess -17.1 mmol/L (-2.4-2.3); ABG HCO3 10.1 mmhg (22.0-26.0); ABG Oxygen Saturation 98 % (90-100); ABG PCO2 23.3 mmhg (35.0-45.0); ABG PH 7.25 mmol/L (7.35-7.45); ABG PO2 100.3 mmhg (80-100); ABG TCO2 10.8 mmhg (23-27)
[2022-03-23 00:33] LABS: Allen's Test Non Applicable; Oxygen ROOM AIR %; Source Right Brachial
[2022-03-23 01:18] LABS: Blood Urea Nitrogen 66 mg/dl (7-17); Calcium 7.8 mg/dl (8.4-10.2); Chloride 123 mmol/L (98-107); Creatinine Clearance Estimated 10 mL/min (50-200); Estimated Glomerular Filt Rate 12 ml/min (>60); GFR (African American) 14 ML/MIN (>60); Glucose 108 mg/dl (74-100); Sodium 147 mmol/L (136-145)
[2022-03-23 01:21] LABS: Carbon Dioxide 10 mmol/L (22.0-30.0)
--- NOTE | 2022-03-23 01:40 | PC.NURSE ---
Lab called critical potassium of 3.0 and co2 of 10. MD aware. No new orders.
[2022-03-23 04:13] LABS: ABG Base Excess -14.3 mmol/L (-2.4-2.3); ABG Oxygen Saturation 98 % (90-100); ABG PCO2 24.3 mmhg (35.0-45.0); ABG PH 7.31 mmol/L (7.35-7.45); ABG PO2 97.3 mmhg (80-100); ABG TCO2 12.7 mmhg (23-27)
[2022-03-23 04:15] LABS: Allen's Test Acceptable; Oxygen 21 %; Source Left Brachial
[2022-03-23 04:30] LABS: Chloride 122 mmol/L (98-107); Sodium 147 mmol/L (136-145)
[2022-03-23 04:33] LABS: Anion Gap 14.5 mEq/L (5-15); Blood Urea Nitrogen 56 mg/dl (7-17); Calcium 7.2 mg/dl (8.4-10.2); Carbon Dioxide 13 mmol/L (22.0-30.0); Creatinine Clearance Estimated 11 mL/min (50-200); Estimated Glomerular Filt Rate 14 ml/min (>60); GFR (African American) 16 ML/MIN (>60); Glucose 105 mg/dl (74-100)
[2022-03-23 04:39] LABS: Potassium 2.5 mmoL/L (3.5-5.1)
[2022-03-23 05:46] LABS: Basophils % 0.3 % (0.1-2.0); Eosinophils # 0.1 K/mm3 (0.0-0.4); Eosinophils % 1.1 % (0.1-12.0); Lymphocytes # 1.3 K/mm3 (0.7-4.5); Lymphocytes % 19.9 % (10-50); Mean Corpuscular HGB Conc 31.8 g/dL (31.8-35.4); Mean Corpuscular Hemoglobin 33.7 pg (27.0-31.2); Mean Corpuscular Volume 105.7 fl (81-99); Monocytes # 0.5 K/mm3 (0.1-1.0); Monocytes % 7.8 % (1.7-9.3); Neutrophils # 4.6 K/mm3 (1.8-7.8); Platelet Count 227 K/mm3 (142-424); Red Blood Count 2.18 M/mm3 (4.20-5.40); White Blood Count 6.4 K/mm3 (4.8-10.8)
[2022-03-23 06:02] LABS: Hemoglobin 7.3 g/dL (12.2-16.2)
--- NOTE | 2022-03-23 06:23 | PC.NURSE ---
called [facility] on [facility]22 she confirmed she was aware of pt needing a bed at [facility] we can call back later today to check bed status at this time.
--- NOTE | 2022-03-23 06:31 | PC.NURSE ---
MARCO ANTONIO SEYMOUR speaking with Dr. Sewell from [facility] at this time
--- NOTE | 2022-03-23 06:32 | PC.NURSE ---
called [facility] to confirm if [facility] had reached out for a bed they confirmed they had no data on pt at this time. They have no beds at time.
--- NOTE | 2022-03-23 06:33 | PC.NURSE ---
MARCO ANTONIO SEYMOUR spoke with Dr. Sewell at [facility] pt is now on the waitlist.
--- NOTE | 2022-03-23 07:07 | PC.NURSE ---
Gave patient a warm blanket and adjusted her pillow for comfort. Call light within reach
--- NOTE | 2022-03-23 07:11 | PC.NURSE ---
Daughter at BS
--- NOTE | 2022-03-23 07:27 | PC.NURSE ---
lab at the bedside
--- NOTE | 2022-03-23 07:41 | PC.NURSE ---
speaking to hospitalist
[2022-03-23 07:45] LABS: Basophils % 0.3 % (0.1-2.0); Eosinophils # 0.1 K/mm3 (0.0-0.4); Eosinophils % 1.5 % (0.1-12.0); Hematocrit 22.3 % (37.0-47.0); Hemoglobin 7.1 g/dL (12.2-16.2); Lymphocytes # 1.2 K/mm3 (0.7-4.5); Lymphocytes % 20.3 % (10-50); Mean Corpuscular HGB Conc 31.9 g/dL (31.8-35.4); Mean Corpuscular Hemoglobin 34.2 pg (27.0-31.2); Mean Corpuscular Volume 107.3 fl (81-99); Mean Platelet Volume 8.5 fl (7.4-10.4); Monocytes # 0.3 K/mm3 (0.1-1.0); Monocytes % 5.4 % (1.7-9.3); Neutrophils # 4.3 K/mm3 (1.8-7.8); Neutrophils % 72.5 % (37.0-80.0); Platelet Count 216 K/mm3 (142-424); Red Blood Count 2.08 M/mm3 (4.20-5.40); Red Cell Distribution Width 16.9 % (11.5-17.5)
--- NOTE | 2022-03-23 07:46 | PC.NURSE ---
RT at BS for RAFIQ
[2022-03-23 07:52] LABS: Chloride 125 mmol/L (98-107); Sodium 147 mmol/L (136-145)
--- NOTE | 2022-03-23 07:52 | PC.NURSE ---
care management and hospitalist at the bedside
[2022-03-23 07:55] LABS: Anion Gap 13.7 mEq/L (5-15); Blood Urea Nitrogen 51 mg/dl (7-17); Calcium 6.8 mg/dl (8.4-10.2); Carbon Dioxide 11 mmol/L (22.0-30.0); Creatinine Clearance Estimated 13 mL/min (50-200); Estimated Glomerular Filt Rate 16 ml/min (>60); GFR (African American) 19 ML/MIN (>60); Glucose 93 mg/dl (74-100)
[2022-03-23 08:00] LABS: Potassium 2.7 mmoL/L (3.5-5.1)
[2022-03-23 08:00] LABS: ABG Base Excess -13.2 mmol/L (-2.4-2.3); ABG HCO3 12.8 mmhg (22.0-26.0); ABG Oxygen Saturation 99 % (90-100); ABG PCO2 25.2 mmhg (35.0-45.0); ABG PH 7.33 mmol/L (7.35-7.45); ABG PO2 101.4 mmhg (80-100); ABG TCO2 13.6 mmhg (23-27)
[2022-03-23 08:09] LABS: Oxygen ROOM AIR %; Source L BRACHIAL
--- NOTE | 2022-03-23 08:22 | PC.NURSE ---
Echo at bedside.
--- NOTE | 2022-03-23 08:32 | PC.NURSE ---
[facility] called and said they're admitting the pt and will get her a bed assignment when a bed is available. Dr Pleitez notified.
--- NOTE | 2022-03-23 09:26 | PC.NURSE ---
Spoke with care management about bed assignment. Notified admissions of admit, placed patient in raines bed status until a bed becomes available. Notified ED staff that patient will board in ED until bed becomes available on Med/Surg.
--- NOTE | 2022-03-23 09:31 | PC.NURSE ---
spoke with hospitalist who gave a verbal order to stop scheduled abg and vbg's. RT notified.
--- NOTE | 2022-03-23 10:10 | PC.NURSE ---
spoke with hospitalist who states he ran kg report on pt and wants pt to have 1mg of narcan
[2022-03-23 10:45] LABS: Magnesium 1.7 mg/dl (1.6-2.3)
[2022-03-23 11:12] LABS: Phosphorous 3.4 mg/dl (2.5-4.5)
--- NOTE | 2022-03-23 11:16 | PC.NURSE ---
Addendum entered by Mera Moraes RN 03/23/22 18:10: 2MG IV ATIVAN GIVEN TO PT FOR CIWA SCORE OF 16. PT TOLERATED VERY WELL, TREMORS DECREASED, PT WAS ABLE TO COMMUNICATE AND ANSWER QUESTIONS PROPERLY. NEW 22G IV IN LT WRIST. Addendum entered by Mera Moraes RN 03/23/22 15:09: PT ALERT TO SELF AND AT TIMES ABLE TO IDENTIFY PLACE. PT UNABLE TO FOLLOW ALL COMMANDS AT THIS TIME, SUCH SWALLOWING PO MEDS. Addendum entered by Mera Moraes RN 03/23/22 12:27: PT PICKING AT FACE/MOUTH, PULLING AT TELE MONITOR PER CHARLIE, MITTENS PLACED ON PT. O2 2L VIA NC PLACED ON PT. Original Note: PT ARRIVED TO FLOOR @ 1100. B/P NOW 72, CHARLIE NOTIFIED.
--- NOTE | 2022-03-23 11:20 | EXP.CARD.CON ---
History of Present Illness History of Present Illness Consult date: 03/23/22 Requesting physician: Bravo Maher Chief complaint: elevated troponin History of present illness: This is a 76-year-old white female who was brought into the emergency department via EMS after being found at home with an altered mental status. She has a known history of hypertension, COPD, tobacco use, PAD and alcohol abuse. The patient was last seen by her family on Sunday when she was in her usual state of health. She was found at home yesterday covered in feces with an altered mental status. Her was also present who was also confused and covered in feces. EMS reported to the emergency department staff that the house was filled with roaches and they had very poor living conditions. The patient's reported that the patient had multiple episodes of diarrhea but the patient's is confused. Unable to get any other history from the patient. All of her history is obtained from her charts. She is not answering any of my questions or following any of my commands. She is lying in bed with her eyes closed groaning. She did tell the nurse her name and that she was at the hospital but she did not answer these questions for me. She appears to be in no distress at this time. [facility] Disclaimer: The information contained in this section may have been updated after the patient was seen, as this information can be updated by other users. Medical History (Updated 03/23/22 @ 11:25 by Sun Sotelo APRN) Lumbar degenerative disc disease Lumbar facet arthropathy Lumbar foraminal stenosis Metabolic acidosis Type 2 myocardial infarction Vitamin D deficiency (~09/13/17) Social History Smoking Status: Never smoker alcohol intake: current substance use type: denies use current occupational status: retired Travel in the last 8 weeks: None household members: spouse housing: house Review of Systems Review of Systems Review of systems:: unable to obtain Exam Data for Last 24 hours Vital signs and Labs for Last 24 Hours: Temp Pulse Resp BP Pulse Ox 98.6 F 94 H 18 72/42 L 96 03/23/22 10:48 03/23/22 10:48 03/23/22 10:48 03/23/22 10:48 03/23/22 10:48 Laboratory Results - last 24 hr 03/22/22 12:45: WBC 9.6, RBC 2.78 L, Hgb 9.6 L, Hct 31.6 L, MCV 113.8 H, MCH 34.6 H, MCHC 30.5 L, RDW 17.2, Plt Count 252, MPV 8.5, Neut % (Auto) 81.9 H, Lymph % (Auto) 13.7, [place] % (Auto) 3.5, Eos % (Auto) 0.5, Baso % (Auto) 0.4, Neut # (Auto) 7.8, Lymph # (Auto) 1.3, [place] # (Auto) 0.3, Eos # (Auto) 0.1, Baso # (Auto) 0.0 03/22/22 12:45: Sodium 146 H, Potassium 4.0, Chloride 123 H, Carbon Dioxide < 5 L*, Anion Gap 22.0 H, BUN 65 H, Creatinine 5.00 H, Estimated GFR 8 L*, Est GFR ( Amer) 10 L*, Glucose 96, Calcium 8.1 L, Total Bilirubin 0.2, AST 27, ALT 11 L, Alkaline Phosphatase 63, Troponin I 0.88 H, Total Protein 7.3, Albumin 4.1, Globulin 3.2, Albumin/Globulin Ratio 1.3, Procalcitonin 63.5 H 03/22/22 12:45: Troponin I 0.81 H, Salicylates < 1.0 L 03/22/22 12:45: Plasma/Serum Alcohol < 10 03/22/22 13:22: Urine Color Yellow, Urine Appearance Clear, Urine pH 7.0, Ur Specific [place] 1.015, Urine Protein 2+, Urine Glucose (UA) Negative, Urine Ketones Negative, Urine Blood 1+, Urine Nitrate Negative, Urine Bilirubin Negative, Urine Urobilinogen 0.2, Ur Leukocyte Esterase 1+ A, Urine RBC None, Urine WBC 10-20, Ur Squamous Epith Cells Occasional, Urine Bacteria Trace 03/22/22 13:28: Stl Aeromonas (PCR) Not detected, Stl C. cayetanensis PCR Not detected, Stool Rotavirus (PCR) Not detected, Stl Adenov F 40/41 PCR Not detected, Stool Astrovirus (PCR) Not detected, Stool Campylobacter PCR Not detected, Stl C.difficile Tox PCR Not detected, Stool Cryptosporidium PCR Not detected, Stl E.coli Shiga Tox PCR Not detected, Stool E coli O157 PCR Not detected, Stl Enterotoxigenic E PCR Not detected, Stool EPEC (PCR) Not
--- NOTE | 2022-03-23 11:27 | SW/DCPLANNER ---
Addendum entered by Sonia Murray 03/27/22 09:08: The plan for this patient is to discharge to [facility] level of care today. No COVID testing needed per Essie at [facility]. Addendum entered by Sonia Murray 03/24/22 13:30: This patient has been accepted to [facility] once medically stable for discharge. I have updated MD that if patient is not medically stable for discharge today they will accept patient on Sunday. I have also updated patient's family. Addendum entered by Sonia Murray 03/24/22 09:45: Essie koch/ [facility] is meeting with patient's family today. Original Note: I spoke with patient's son (Richard) regarding plans once patient is medically stable for discharge. Richard stated that patient's home is in deplorable conditions and patient will not be able to return there. Richard stated that they have recently spoke with [facility] regarding placement. I did follow up with Essie at [facility] whom is willing to review patient information. I have faxed all patient information to Essie koch/ [facility]. Discharge date is unknown at this time. I will continue to follow up with patient, family and [facility]i Truj[facility].
--- NOTE | 2022-03-23 11:42 | ECG_ITS ---
APPROVED REPORT Exam: Resting ECG HR:85 bpm ECG Measurements Heart Rate 85 AXES SD 162 P 73 QRSd 80 QRS 82 QT 320 T 115 QTc 362 Conclusion SINUS RHYTHM WITH OCCASIONAL SUPRAVENTRICULAR PREMATURE COMPLEXES ST DEVIATION AND MODERATE T-WAVE ABNORMALITY, CONSIDER ANTERIOR ISCHEMIA [-0.1+ mV T-WAVE IN V3/V4] ABNORMAL ECG UNCONFIRMED REPORT Electronically signed by : Dario Dillon MD 03/23/2022 20:15:51
--- NOTE | 2022-03-23 11:49 | HMH.OTEV ---
OT Inpatient Evaluation Rehab OT IP Evaluation Start: 03/23/22 10:06 Freq: ONCE Status: Complete Protocol: Document 03/23/22 11:41 [facility] (Rec: 03/23/22 11:49 [facility] [id number]) Rehab OT IP Assessment Subjective History Mrs. Golden is a 76-year-old female PMH for COPD, HTN, tobacco abuse, PVD, alcohol abuse who was admitted via ED on 03/22/22 due to altered mental status. Pt was unable to follow simple commands, open her eyes, or respond to evaluating OT. She continuously kept her eyes shut, moaning, rocking back and forth in bed, and picking at her lips. Therefore, any previous level of function was unable to be obtained due to her state. OT copied the following information about previous living situation from ER documentation: History provided by patient's family members. Patient was reportedly last seen on Sunday in her normal state of health. However today patient was found altered covered in feces. Patient was also present with her who was also confused and covered in feces. EMS report the entire house was filled with roaches and in poor living conditions. Subjective Pt had bowel movement in bed upon arrival. Therapists assisted nursing and SRNA in cleaning patient. Pt was max assist x 2 to complete bed mobility and roll from side to side in order to complete toileting hygiene. Pt was dependent upon therapist to complete toileting hygiene and don a breif. Pt was left with nursing. Objective Upper Extremity Gross ROM Min Limitation <25% Shoulder ROM Limitations Muscle Weakness Elbow ROM Limitations
--- NOTE | 2022-03-23 11:55 | EXP.SURG.CON ---
History of Present Illness *Admission Date: 03/22/22 *Reason for visit:: Decreased hemoglobin *History of present illness: Patient is a 76-year-old female with history of hypertension, COPD, alcohol abuse, chronic arterial occlusive disease. She was brought into the emergency department via EMS after being found at home with altered mental status and covered in feces. Patient was at home with her who was in a similar situation. Reportedly very poor living conditions at the patient's residence. She was evaluated in the emergency department. She was diagnosed with acute delirium and altered mental status with acute kidney injury, metabolic acidosis, UTI, severe sepsis with organ dysfunction along with elevated troponin. Hemoglobin upon presentation to the emergency department was 9.6. This morning it is 7.1. This prompted surgical consultation. [facility] Disclaimer: The information contained in this section may have been updated after the patient was seen, as this information can be updated by other users. Medical History (Updated 03/23/22 @ 12:04 by Hunter Diamond MD) Lumbar degenerative disc disease Lumbar facet arthropathy Lumbar foraminal stenosis Metabolic acidosis Type 2 myocardial infarction Vitamin D deficiency (~09/13/17) Social History Smoking Status: Never smoker alcohol intake: current substance use type: denies use current occupational status: retired Travel in the last 8 weeks: None household members: spouse housing: house Meds Home Medications and Allergies Home Medications Medication Instructions Recorded Confirmed Type hydrocodone 7.5 mg-acetaminophen 1 tab PO QID PRN pain #120 tabs 03/17/22 03/23/22 Rx 325 mg tablet amlodipine 5 mg tablet 5 mg PO DAILY htn 03/23/22 03/23/22 History fluticasone furoate 100 2 inh inhalation Q4-6H Asthma 03/23/22 03/23/22 History mcg-vilanterol 25 mcg/dose inhalation powder (Breo Ellipta) gabapentin 300 mg capsule 300 mg PO BID nerve pain 03/23/22 03/23/22 History pantoprazole 40 mg tablet,delayed 40 mg PO DAILY GERD 03/23/22 03/23/22 History release ropinirole 2 mg tablet 2 mg PO DAILY rls 03/23/22 03/23/22 History trazodone 50 mg tablet 50 mg PO DAILY sleep 03/23/22 03/23/22 History New Prescriptions to Start Prescriptions: Allergies Allergy/AdvReac Type Severity Reaction Status Date / Time No Known Allergies Allergy Verified 03/17/22 13:24 Exam (Inpt) Vital signs and Labs for Last 24 Hours: Temp Pulse Resp BP Pulse Ox 98.6 F 94 H 18 72/42 L 96 03/23/22 10:48 03/23/22 10:48 03/23/22 10:48 03/23/22 10:48 03/23/22 10:48 Laboratory Results - last 24 hr 03/22/22 12:45: WBC 9.6, RBC 2.78 L, Hgb 9.6 L, Hct 31.6 L, MCV 113.8 H, MCH 34.6 H, MCHC 30.5 L, RDW 17.2, Plt Count 252, MPV 8.5, Neut % (Auto) 81.9 H, Lymph % (Auto) 13.7, Ware % (Auto) 3.5, Eos % (Auto) 0.5, Baso % (Auto) 0.4, Neut # (Auto) 7.8, Lymph # (Auto) 1.3, Ware # (Auto) 0.3, Eos # (Auto) 0.1, Baso # (Auto) 0.0 03/22/22 12:45: Sodium 146 H, Potassium 4.0, Chloride 123 H, Carbon Dioxide < 5 L*, Anion Gap 22.0 H, BUN 65 H, Creatinine 5.00 H, Estimated GFR 8 L*, Est GFR ( Amer) 10 L*, Glucose 96, Calcium 8.1 L, Total Bilirubin 0.2, AST 27, ALT 11 L, Alkaline Phosphatase 63, Troponin I 0.88 H, Total Protein 7.3, Albumin 4.1, Globulin 3.2, Albumin/Globulin Ratio 1.3, Procalcitonin 63.5 H 03/22/22 12:45: Troponin I 0.81 H, Salicylates < 1.0 L 03/22/22 12:45: Plasma/Serum Alcohol < 10 03/22/22 13:22: Urine Color Yellow, Urine Appearance Clear, Urine pH 7.0, Ur Specific [place] 1.015, Urine Protein 2+, Urine Glucose (UA) Negative, Urine Ketones Negative, Urine Blood 1+, Urine Nitrate Negative, Urine Bilirubin Negative, Urine Urobilinogen 0.2, Ur Leukocyte Esterase 1+ A, Urine RBC None, Urine WBC 10-20, Ur Squamous Epith Cells Occasional, Urine Bacteria Trace 03/22/22 13:28: Stl Aeromonas (PCR) Not de
[2022-03-23 11:58] LABS: INR 1.06 (0.9-1.1); Prothrombin Time 11.4 seconds (10.1-12.5)
--- NOTE | 2022-03-23 11:59 | HMH.PTEV ---
Physical Therapy Evaluation Rehab PT IP Evaluation Start: 03/23/22 10:06 Freq: ONCE Status: Active Protocol: Document 03/23/22 11:46 STEVEN (Rec: 03/23/22 11:58 STEVEN [id number]) Subjective/History History History Pt is a 76-year-old female PMH for COPD, HTN, tobacco abuse, PVD, alcohol abuse who was admitted via ED on 03/22/22 due to altered mental status. PT copied the following information about previous living situation from ER documentation: History provided by patient's family members. Patient was reportedly last seen on Sunday in her normal state of health. However today patient was found altered covered in feces. Patient was also present with her who was also confused and covered in feces. EMS report the entire house was filled with roaches and in poor living conditions. Subjective Subjective Pt was supine in bed upon arrival moaning, rocking back and forth in bed and picking at her nose and lips. Pt was unable to answer orientation questions due to mental status therefore living environment and previous level of function were unable to be obtained at this time. Pt had bowel movement in bed upon arrival. Therapists assisted nursing and SRNA in cleaning patient. Pt was max assist x 2 to complete bed mobility and roll from side to side in order to complete toileting hygiene. Pt was dependent upon therapist to complete toileting hygiene and don a breif. Pt was left with nursing. Rehab PT IP Eval Objective Appearance Patient Behavior Resistive to Care,Confused Difficulty following instructions severe Speec
[2022-03-23 12:17] LABS: Iron 41 ug/dL (37-170)
[2022-03-23 12:26] LABS: Total Iron Binding Capacity 192 ug/dL (265-497)
--- NOTE | 2022-03-23 12:31 | HMH.PHAINT1 ---
Pharmacy Intervention Comments: MEDICATION RECONCILIATION COMPLETED ON PATIENT USING EXTERNAL FILL HISTORY FROM PHARMACY AND DEO REPORT. -BARRY BA, NOED
[2022-03-23 13:07] LABS: Vitamin B12 887 pg/mL (239-931)
[2022-03-23 13:08] LABS: Hematocrit 22.8 % (37.0-47.0); Hemoglobin 7.4 g/dL (12.2-16.2)
--- NOTE | 2022-03-23 13:59 | EXP.HP ---
History of Present Illness *Admission Date: 03/22/22 *Reason for visit:: Chief complaint: Altered mental status *History of present illness: The patient is a 76-year-old female who presented to [facility] emergency department on March 22 for evaluation of altered mental status. She was brought in by EMS who reported a poor social situation. Her past medical history is significant for hypertension, degenerative disc disease of the lumbar spine on chronic narcotic and gabapentin therapy, COPD, alcohol use disorder and peripheral vascular disease. The history is acquired from the medical record, family members and nursing staff in the ED. The patient is somnolent but responds to stimulation and does not answer questions. The medical record reports that she is on chronic opioid therapy with 30 morphine milliequivalents daily over the past year with additional gabapentin therapy. It is unknown if she is overmedicated or withdrawing. Family is concerned with her routine alcohol use and they report no prior history of alcohol withdrawal seizures or routine hospitalizations. Her last alcohol intake is unknown. In the ED her presenting blood pressure was 187/102 with a heart rate of 111 and respiratory rate of 20. Her white blood cell count was normal and her lactic acid was normal. Her urinalysis reviewed 1+ leukocyte Estrace with the rest of her urinalysis parameters normal. A urine culture was sent but no blood cultures were acquired. She was started on IV Rocephin. Her initial BUN and creatinine was 65 and 5.0. Her ABG was consistent with metabolic acidosis. Initial ED evaluation identifies that the patient is in acute kidney injury on chronic kidney disease stage III (review of the record identifies baseline creatinine 1.8) with concerns of metabolic encephalopathy. Initial ED physician evaluation demonstrates contact for transition of care to another facility for higher level service and nephrology care. The patient was started on bicarb therapy with further lab evaluation. On the morning of March 23 the patient's labs identify an improved anion gap with ongoing non-anion gap acidosis, hypokalemia, hypomagnesemia and hypocalcemia. Her white blood cell count remained stable and her hemoglobin dropped to 7.1. Her troponin level x 2 is crescendo. Our group was consulted for further management of her acute kidney injury, altered mental status type II NSTEMI and significant anemia in the setting of hospital capacity challenges for transition of care and nephrology services in the vicinity with influenza, RSV and COVID outbreaks. I am accompanied by nursing staff and Ms. Jenna West to evaluate the patient for consultation and recommendations concerning her presentation. We will add an ECG and cardiology consult to her ED work-up. [facility] Disclaimer: Her past medical history has been reviewed including COPD, DDD lumbar spine, chronic opioid therapy, chronic kidney disease stage 3, tobacco dependence and alcohol use disorder Her past surgical history is unknown at present in her record will be updated with further history provided Her family history is unknown and will be updated as further history is provided Medical History (Updated 03/23/22 @ 14:43 by Bravo Maher MD) Lumbar degenerative disc disease Lumbar facet arthropathy Lumbar foraminal stenosis Metabolic acidosis Type 2 myocardial infarction Vitamin D deficiency (~09/13/17) Social History Smoking Status: Never smoker alcohol intake: current substance use type: denies use current occupational status: retired Travel in the last 8 weeks: None household members: spouse housing: house Review of Systems Review of Systems Review of systems:: unable to obtain (Altered mental status) Meds Home Medications and Allergies Home Medications Medication Instructions Recorded Confirmed Type amlodipine 5 mg tabl
[2022-03-23 14:11] LABS: Troponin I 2.46 ng/ml (0.00-0.034)
--- NOTE | 2022-03-23 14:25 | PC.NURSE ---
CRITICAL LAB, TROPONIN 2.46 REPORTED TO CHARLIE
[2022-03-23 14:29] LABS: Anion Gap 13.8 mEq/L (5-15); Blood Urea Nitrogen 46 mg/dl (7-17); Calcium 8.1 mg/dl (8.4-10.2); Carbon Dioxide 12 mmol/L (22.0-30.0); Creatinine Clearance Estimated 12 mL/min (50-200); Estimated Glomerular Filt Rate 16 ml/min (>60); GFR (African American) 20 ML/MIN (>60); Glucose 90 mg/dl (74-100)
[2022-03-23 14:40] LABS: Potassium 2.8 mmoL/L (3.5-5.1); Sodium 150 mmol/L (136-145)
[2022-03-23 14:41] LABS: Chloride 127 mmol/L (98-107)
--- NOTE | 2022-03-23 15:21 | ECG_ITS ---
APPROVED REPORT Exam: Resting ECG HR:87 bpm ECG Measurements Heart Rate 87 AXES RI 175 P 73 QRSd 81 QRS 65 QT 379 T -56 QTc 423 Conclusion SINUS RHYTHM WITH OCCASIONAL ECTOPIC PREMATURE COMPLEXES NONSPECIFIC ST & T-WAVE ABNORMALITY ABNORMAL ECG UNCONFIRMED REPORT Electronically signed by : Dario Dillon MD 03/23/2022 20:15:18
[2022-03-23 18:25] LABS: Amphetamine/Metha Screen,Urine Negative ng/ml (<1000)
[2022-03-23 18:26] LABS: Barbiturates Screen,Urine Negative ng/ml (<200)
[2022-03-23 18:27] LABS: Benzodiazepines Screen,Urine Negative ng/ml (<200); Cannabinoid Screen,Urine Negative ng/ml (<50)
[2022-03-23 18:28] LABS: Cocaine Screen,Urine Negative ng/ml (<300)
[2022-03-23 18:29] LABS: Methadone Screen,Urine Negative ng/ml (<300); Opiate Screen,Urine Negative ng/ml (<300)
[2022-03-23 18:30] LABS: Phencyclidine Screen,Urine Negative ng/ml (<25)
[2022-03-23 19:57] LABS: Potassium 3.6 mmoL/L (3.5-5.1)
[2022-03-23 20:00] LABS: Anion Gap 15.6 mEq/L (5-15); Blood Urea Nitrogen 45 mg/dl (7-17); Calcium 8.3 mg/dl (8.4-10.2); Creatinine Clearance Estimated 13 mL/min (50-200); Estimated Glomerular Filt Rate 18 ml/min (>60); GFR (African American) 22 ML/MIN (>60); Glucose 90 mg/dl (74-100)
[2022-03-23 20:05] LABS: Carbon Dioxide 9 mmol/L (22.0-30.0); Chloride 132 mmol/L (98-107); Sodium 153 mmol/L (136-145)
--- NOTE | 2022-03-23 20:06 | PC.NURSE ---
notified WEN Tomlinson of pt's critical labs (NA 153, Cl 132, CO2 9), no new orders at this time
[2022-03-23 23:33] LABS: Hematocrit 21.7 % (37.0-47.0)
[2022-03-23 23:35] LABS: Hemoglobin 6.8 g/dL (12.2-16.2); Sodium 148 mmol/L (136-145)
--- NOTE | 2022-03-23 23:36 | PC.NURSE ---
notified WEN Tomlinson of pt's critical hgb of 6.8, OBSTETRICAL NURSE to review chart and put orders in
[2022-03-23 23:38] LABS: Anion Gap 10.7 mEq/L (5-15); Blood Urea Nitrogen 39 mg/dl (7-17); Carbon Dioxide 14 mmol/L (22.0-30.0); Creatinine Clearance Estimated 15 mL/min (50-200); Estimated Glomerular Filt Rate 21 ml/min (>60); GFR (African American) 25 ML/MIN (>60)
[2022-03-23 23:39] LABS: Glucose 90 mg/dl (74-100)
[2022-03-23 23:40] LABS: Chloride 126 mmol/L (98-107); Potassium 2.7 mmoL/L (3.5-5.1)
[2022-03-24] VITALS (17 sets, daily range): BP systolic 87–178; BP diastolic 44–94; PULSE 60–92; RESP 17–20; TEMP 36.8–37.1; O2SAT 90–100; BMI 18.6
--- NOTE | 2022-03-24 00:28 | PC.NURSE ---
obtained consent for blood administration from pt's son Richard [place]
--- NOTE | 2022-03-24 01:08 | PC.NURSE ---
another rn and house are trying to obtain IV so can give ordered blood, only have 22G currently
--- NOTE | 2022-03-24 01:41 | PC.NURSE ---
WEN Tomlinson obtained 20G Left upper arm; report given to JACKIE Benitez, going to get blood now
--- NOTE | 2022-03-24 04:43 | PC.NURSE ---
1 hour H&H at 0530. Order canceled r/t morning labs ordered at 0600. Lab notified that H&H is due at 0535.
--- NOTE | 2022-03-24 05:04 | PC.NURSE ---
She is s/p 1 unit of PRBC. She continues on CIWA q [address] precautions in [address]. Tries to get out of bed at times.
[2022-03-24 07:13] LABS: Basophils % 0.5 % (0.1-2.0); Eosinophils # 0.2 K/mm3 (0.0-0.4); Eosinophils % 2.1 % (0.1-12.0); Hematocrit 27.3 % (37.0-47.0); Lymphocytes # 1.6 K/mm3 (0.7-4.5); Lymphocytes % 21.1 % (10-50); Mean Corpuscular Volume 106.6 fl (81-99); Mean Platelet Volume 8.8 fl (7.4-10.4); Monocytes # 0.4 K/mm3 (0.1-1.0); Monocytes % 5.7 % (1.7-9.3); Neutrophils # 5.2 K/mm3 (1.8-7.8); Neutrophils % 70.6 % (37.0-80.0); Platelet Count 197 K/mm3 (142-424); Red Blood Count 2.57 M/mm3 (4.20-5.40); Red Cell Distribution Width 16.9 % (11.5-17.5); White Blood Count 7.4 K/mm3 (4.8-10.8)
[2022-03-24 07:15] LABS: Hemoglobin 8.7 g/dL (12.2-16.2)
[2022-03-24 07:21] LABS: Chloride 125 mmol/L (98-107); Potassium 3.1 mmoL/L (3.5-5.1); Sodium 148 mmol/L (136-145)
[2022-03-24 07:23] LABS: Alanine Aminotransferase 17 U/L (12-78); Aspartate Amino Transferase 41 U/L (14-36); Blood Urea Nitrogen 35 mg/dl (7-17); Creatinine Clearance Estimated 16 mL/min (50-200); Estimated Glomerular Filt Rate 23 ml/min (>60); GFR (African American) 28 ML/MIN (>60); INR 0.98 (0.9-1.1); Prothrombin Time 10.6 seconds (10.1-12.5)
[2022-03-24 07:24] LABS: Albumin/Globulin Ratio 1.2 (1.1-1.8); Alkaline Phosphatase 47 U/L (38-126); Anion Gap 11.1 mEq/L (5-15); Bilirubin,Total 0.3 mg/dl (0.2-1.3); Calcium 8.1 mg/dl (8.4-10.2); Carbon Dioxide 15 mmol/L (22.0-30.0); Globulin 2.5 g/dL (1.3-3.2); Glucose 118 mg/dl (74-100); Magnesium 2.4 mg/dl (1.6-2.3); Phosphorous 2.2 mg/dl (2.5-4.5); Total Protein,Serum 5.5 g/dl (6.3-8.2)
--- NOTE | 2022-03-24 07:38 | ECG_ITS ---
APPROVED REPORT Exam: Resting ECG HR:78 bpm ECG Measurements Heart Rate 78 AXES WY 157 P 74 QRSd 79 QRS 74 QT 388 T 83 QTc 422 Conclusion SINUS RHYTHM MODERATE ST DEPRESSION [0.05+ mV ST DEPRESSION] ABNORMAL ECG UNCONFIRMED REPORT Electronically signed by : Dario Dillon MD 03/24/2022 09:22:48
[2022-03-24 07:45] LABS: NT Pro Brain Natriuretic Pep. 15400 pg/mL (0-450)
[2022-03-24 07:53] LABS: Procalcitonin 14.4 ng/mL (0.0-2.0)
[2022-03-24 10:38] LABS: Chloride 120 mmol/L (98-107)
[2022-03-24 10:39] LABS: Sodium 143 mmol/L (136-145)
[2022-03-24 10:42] LABS: Anion Gap 9.9 mEq/L (5-15); Blood Urea Nitrogen 30 mg/dl (7-17); Calcium 7.7 mg/dl (8.4-10.2); Carbon Dioxide 16 mmol/L (22.0-30.0); Creatinine Clearance Estimated 17 mL/min (50-200); Estimated Glomerular Filt Rate 24 ml/min (>60); GFR (African American) 29 ML/MIN (>60); Glucose 118 mg/dl (74-100)
--- NOTE | 2022-03-24 11:10 | HMH.SLDYSPHA ---
Speech & Language Evaluation Speech/Language Dysphagia Evaluation Start: 03/24/22 11:00 Freq: ONCE Status: Active Protocol: Document 03/24/22 11:00 JULIENYUMIKO (Rec: 03/24/22 11:[address] [id number][facility] Dysphagia Assess/Goals/Plan Assessment Date of Evaluation: 03/24/22 Evaluation Type Initial Certification Assessment/Problems CSE completed per MD orders for swallowing concerns. Does Patient Qualify for Service No Qualify/Failure Comment Based on clinical bedside swallow evaluation results, speech therapy services are not warranted at this time. Recommendations PHYSICIAN CERTIFICATION: The specified therapy services are required, authorized, and reviewed every 30 days. Diet Recommendations Mechanical Soft Liquid Type Recommendations Normal/Thin SL Swallow Guidelines Standard Aspiration Prec. Dysphagia Swallow Precautions/Strategies Sitting Upright (90 deg),Small Bites and Sips,Alternate Liquids/Solids Plan Pt/Guardian verbally ack understanding Yes of dx/prognosis/goals G -code Required No Education Instructions provided Discussed assessment results and diet recommendations with MD, care management, nursing, and polisher aluminum all of which expressed understanding. Pt/Caregiver able to recall information Able to recall/restate Reinforcement needed No Speech & Language HPI History Present Illness Description of Patient Problem Mrs. Golden is a 76-year-old female PMH for COPD, HTN, tobacco abuse, PVD, alcohol abuse who was admitted via ED on 03/22/22 due to altered mental status. [employer]ERS copied the following information about previous living situation from ER documentation: History provided by patient's family members. Patient was reportedly last seen on Sunday in her normal state of health. However today patient was found altered covered in feces. Patient was also present with her who was also confused and covered in feces. EMS report the entire house was filled with roac
[2022-03-24 11:22] LABS: Potassium 2.9 mmoL/L (3.5-5.1)
--- NOTE | 2022-03-24 12:07 | EXP.PN ---
Subjective *Date: 03/24/22 *Time: 12:07 Interval history: Date of service March 24, 2022 The patient is alert and oriented. She reports no acute pain. I am accompanied by nursing staff, pharmacy, speech therapy and case management to evaluate the patient. We have reviewed and discussed her overnight laboratory results, ongoing therapy and improved renal function. She received 1 unit of blood through the night for a hemoglobin of 6.8. Her INR is normal. She is tolerating her twice daily PPI therapy. Nursing staff report improved CIWA scores. She remains afebrile with improved vital signs and she is saturating appropriately on room air. PT and OT are due to see the patient. Exam Data for Last 24 hours Vital signs and Labs for Last 24 Hours: Temp Pulse Resp BP Pulse Ox 98.2 F 85 18 168/85 H 95 03/24/22 08:00 03/24/22 08:00 03/24/22 08:00 03/24/22 08:00 03/24/22 08:00 Laboratory Results - last 24 hr 03/23/22 01:03: Iron 41, TIBC 192 L, Iron Saturation 21.95266 03/23/22 04:20: Vitamin B12 887 03/23/22 07:31: Blood Type A Positive, Antibody Screen Negative, Crossmatch (AHG) See Detail 03/23/22 12:50: Troponin I 2.46 H 03/23/22 12:50: Hgb 7.4 L, Hct 22.8 L 03/23/22 14:08: Sodium 150 H, Potassium 2.8 L*, Chloride 127 H, Carbon Dioxide 12 L, Anion Gap 13.8, BUN 46 H, Creatinine 2.80 H, Estimated Creat Clear 12, Estimated GFR 16 L*, Est GFR ( Amer) 20 L, Glucose 90, Calcium 8.1 L 03/23/22 18:00: Urine Opiates Screen Negative, Urine Methadone Screen Negative, Ur Barbituates Screen Negative, Ur Phencyclidine Scrn Negative, Ur Amphetamines Screen Negative, U Benzodiazepines Scrn Negative, Urine Cocaine Screen Negative, U Marijuana (THC) Screen Negative 03/23/22 19:19: Sodium 153 H*, Potassium 3.6 D, Chloride 132 H, Carbon Dioxide 9 L* D, Anion Gap 15.6 H, BUN 45 H, Creatinine 2.60 H, Estimated Creat Clear 13, Estimated GFR 18 L*, Est GFR ( Amer) 22 L, Glucose 90, Calcium 8.3 L 03/23/22 23:25: Hgb 6.8 L*, Hct 21.7 L 03/23/22 23:25: Sodium 148 H, Potassium 2.7 L* D, Chloride 126 H, Carbon Dioxide 14 L, Anion Gap 10.7, BUN 39 H, Creatinine 2.30 H, Estimated Creat Clear 15, Estimated GFR 21 L, Est GFR ( Amer) 25 L, Glucose 90, Calcium 8.0 L 03/24/22 07:00: NT-Pro-B Natriuret Pep 58831 H, Procalcitonin 14.4 H 03/24/22 07:00: WBC 7.4, RBC 2.57 L, Hgb 8.7 L D, Hct 27.3 L, MCV 106.6 H, MCH 34.0 H, MCHC 32.0, RDW 16.9, Plt Count 197, MPV 8.8, Neut % (Auto) 70.6, Lymph % (Auto) 21.1, [place] % (Auto) 5.7, Eos % (Auto) 2.1, Baso % (Auto) 0.5, Neut # (Auto) 5.2, Lymph # (Auto) 1.6, [place] # (Auto) 0.4, Eos # (Auto) 0.2, Baso # (Auto) 0.0 03/24/22 07:00: PT 10.6, INR 0.98 03/24/22 07:00: Sodium 148 H, Potassium 3.1 L, Chloride 125 H, Carbon Dioxide 15 L, Anion Gap 11.1, BUN 35 H, Creatinine 2.10 H, Estimated Creat Clear 16, Estimated GFR 23 L, Est GFR ( Amer) 28 L, Glucose 118 H D, Calcium 8.1 L, Phosphorus 2.2 L D, Magnesium 2.4 H D, Total Bilirubin 0.3, AST 41 H D, ALT 17 D, Alkaline Phosphatase 47, Total Protein 5.5 L, Albumin 3.0 L, Globulin 2.5, Albumin/Globulin Ratio 1.2 03/24/22 10:10: Sodium 143, Potassium 2.9 L*, Chloride 120 H, Carbon Dioxide 16 L, Anion Gap 9.9, BUN 30 H, Creatinine 2.00 H, Estimated Creat Clear 17, Estimated GFR 24 L, Est GFR ( Amer) 29 L, Glucose 118 H, Calcium 7.7 L I & O for Last 24 hours: Intake & Output 03/21/22 03/22/22 03/23/22 03/24/22 23:59 23:59 23:59 23:59 Intake Total 0 / 0 1973 Output Total 1974 500 / 500 Balance -1974 1474 / 1474 Weight 49.895 kg 46.011 kg 46 kg Microbiology Reports for the Last 24 Hours: Microbiology 03/22/22 13:22 Urine,Clean Catch Urine Culture - Preliminary NO GROWTH AFTER 24 HOURS Constitutional Constitutional: no acute distress, thin, chronically ill appearing and cooperative *Routine HEENT Exam Head: Present normocephalic Eye: Present EOMI and PERRL ENT: Present mucous membran
[2022-03-24 14:31] LABS: Chloride 118 mmol/L (98-107); Sodium 141 mmol/L (136-145)
[2022-03-24 14:32] LABS: Potassium 3.1 mmoL/L (3.5-5.1)
[2022-03-24 14:35] LABS: Anion Gap 9.1 mEq/L (5-15); Blood Urea Nitrogen 28 mg/dl (7-17); Calcium 7.9 mg/dl (8.4-10.2); Carbon Dioxide 17 mmol/L (22.0-30.0); Creatinine Clearance Estimated 18 mL/min (50-200); Estimated Glomerular Filt Rate 26 ml/min (>60); GFR (African American) 31 ML/MIN (>60); Glucose 100 mg/dl (74-100)
--- NOTE | 2022-03-24 14:38 | EXP.SURG.PN ---
Subjective Narrative: Patient has had some more orientation per nursing staff. She did receive 1 unit of packed red blood cells. She had a bowel movement earlier today which showed no evidence of any melena or blood. Exam Data for Last 24 hours Vital signs and Labs for Last 24 Hours: Temp Pulse Resp BP Pulse Ox 98.2 F 85 18 168/85 H 95 03/24/22 08:00 03/24/22 08:00 03/24/22 08:00 03/24/22 08:00 03/24/22 08:00 Laboratory Results - last 24 hr 03/23/22 07:31: Blood Type A Positive, Antibody Screen Negative, Crossmatch (AHG) See Detail 03/23/22 14:08: Sodium 150 H, Potassium 2.8 L*, Chloride 127 H, Carbon Dioxide 12 L, Anion Gap 13.8, BUN 46 H, Creatinine 2.80 H, Estimated Creat Clear 12, Estimated GFR 16 L*, Est GFR ( Amer) 20 L, Glucose 90, Calcium 8.1 L 03/23/22 18:00: Urine Opiates Screen Negative, Urine Methadone Screen Negative, Ur Barbituates Screen Negative, Ur Phencyclidine Scrn Negative, Ur Amphetamines Screen Negative, U Benzodiazepines Scrn Negative, Urine Cocaine Screen Negative, U Marijuana (THC) Screen Negative 03/23/22 19:19: Sodium 153 H*, Potassium 3.6 D, Chloride 132 H, Carbon Dioxide 9 L* D, Anion Gap 15.6 H, BUN 45 H, Creatinine 2.60 H, Estimated Creat Clear 13, Estimated GFR 18 L*, Est GFR ( Amer) 22 L, Glucose 90, Calcium 8.3 L 03/23/22 23:25: Hgb 6.8 L*, Hct 21.7 L 03/23/22 23:25: Sodium 148 H, Potassium 2.7 L* D, Chloride 126 H, Carbon Dioxide 14 L, Anion Gap 10.7, BUN 39 H, Creatinine 2.30 H, Estimated Creat Clear 15, Estimated GFR 21 L, Est GFR ( Amer) 25 L, Glucose 90, Calcium 8.0 L 03/24/22 07:00: NT-Pro-B Natriuret Pep 11062 H, Procalcitonin 14.4 H 03/24/22 07:00: WBC 7.4, RBC 2.57 L, Hgb 8.7 L D, Hct 27.3 L, MCV 106.6 H, MCH 34.0 H, MCHC 32.0, RDW 16.9, Plt Count 197, MPV 8.8, Neut % (Auto) 70.6, Lymph % (Auto) 21.1, [place] % (Auto) 5.7, Eos % (Auto) 2.1, Baso % (Auto) 0.5, Neut # (Auto) 5.2, Lymph # (Auto) 1.6, [place] # (Auto) 0.4, Eos # (Auto) 0.2, Baso # (Auto) 0.0 03/24/22 07:00: PT 10.6, INR 0.98 03/24/22 07:00: Sodium 148 H, Potassium 3.1 L, Chloride 125 H, Carbon Dioxide 15 L, Anion Gap 11.1, BUN 35 H, Creatinine 2.10 H, Estimated Creat Clear 16, Estimated GFR 23 L, Est GFR ( Amer) 28 L, Glucose 118 H D, Calcium 8.1 L, Phosphorus 2.2 L D, Magnesium 2.4 H D, Total Bilirubin 0.3, AST 41 H D, ALT 17 D, Alkaline Phosphatase 47, Total Protein 5.5 L, Albumin 3.0 L, Globulin 2.5, Albumin/Globulin Ratio 1.2 03/24/22 10:10: Sodium 143, Potassium 2.9 L*, Chloride 120 H, Carbon Dioxide 16 L, Anion Gap 9.9, BUN 30 H, Creatinine 2.00 H, Estimated Creat Clear 17, Estimated GFR 24 L, Est GFR ( Amer) 29 L, Glucose 118 H, Calcium 7.7 L 03/24/22 14:15: Sodium 141, Potassium 3.1 L, Chloride 118 H, Carbon Dioxide 17 L, Anion Gap 9.1, BUN 28 H, Creatinine 1.90 H, Estimated Creat Clear 18, Estimated GFR 26 L, Est GFR ( Amer) 31 L, Glucose 100, Calcium 7.9 L I & O for Last 24 hours: Intake & Output 03/22/22 03/23/22 03/24/22 03/25/22 11:59 11:59 11:59 11:59 Intake Total 1973 Output Total 850 / 850 1625 / 1625 Balance -850 / -850 349 / 349 Weight 101 lb 7 oz 101 lb 6.602 oz Microbiology Reports for the Last 24 Hours: Microbiology 03/22/22 13:22 Urine,Clean Catch Urine Culture - Final NO GROWTH AFTER 48 HOURS Constitutional Constitutional: no acute distress Comments: Somnolent Progress Note: A&P Assessment and plan (1) Encephalopathy acute: Status: Acute (2) TIERRA (acute kidney injury): Status: Acute (3) Type 2 myocardial infarction: Status: Acute (4) Alcohol use disorder: Status: Acute (5) Anemia: Status: Acute Assessment and plan: Patient responded very well to transfusion for hemoglobin of 6.8 with 1 unit with subsequent hemoglobin of 8.7. No clinical evidence of active GI blood loss. Potential is this could be chronic. Continue to monitor and transfuse if necessary. May need
[2022-03-24 16:36] LABS: Adenovirus F 40/41, stool Not Detected (NotDetected); Astrovirus Not Detected (NotDetected); Campylobacter Not Detected (NotDetected); Clostridium Difficile A/B, PCR Not Detected (NotDetected); Cryptosporidium Not Detected (NotDetected); Cyclospora Cayetanesis Not Detected (NotDetected); Entamoeba histolytica Not Detected (NotDetected); Enteroaggregative E coli Not Detected (NotDetected); Enteropathogenic E coli Not Detected (NotDetected); Enterotoxigenic E coli Not Detected (NotDetected); Giardia lamblia Not Detected (NotDetected); Norovirus Not Detected (NotDetected); Plesimonas Shigalloides, PCR Not Detected (NotDetected); Rotavirus A Not Detected (NotDetected); Salmonella, PCR Not Detected (NotDetected); Sapovirus Not Detected (NotDetected); Shiga-like toxin E coli Not Detected (NotDetected); Shigella Enterovasive E coli Not Detected (NotDetected); Vibrio Cholerae Not Detected (NotDetected); Vibrio, PCR Not Detected (NotDetected); Yersinia Entercolitica, PCR Not Detected (NotDetected)
[2022-03-24 17:27] LABS: Occult Blood,Stool Positive (Negative)
--- NOTE | 2022-03-24 17:33 | PC.NURSE ---
PT IS SITTING UP IN THE CHAIR. ALERT AND ORIENTED X2. BATH AND LINEN CHANGE THIS SHIFT. REDNESS NOTED TO THE BUTTOCKS/DASHA AREA. PT IS A 1 ASSIST TO GET OOB. 800 ML'S UOP THIS SHIFT. APPETITE HAS BEEN POOR HOWEVER PT HAS BEEN SIPPING ON LIQUIDS ON AN OFF T/O THE SHIFT. SCATTERED BRUISING NOTED TO BUE/BLE. LUNG SOUNDS HAVE SCATTERED RHONCHI. ABDOMEN SOFT/NON TENDER WITH ACTIVE BOWEL SOUNDS. PT HAS BEEN HAVING LOOSE STOOLS THIS SHIFT. DIARRHEA PANEL COLLECTED AND SENT TO LAB. CIWA SCORE 3. WILL CONTINUE TO MONITOR.
[2022-03-24 18:08] LABS: Calcium, Ionized 4.5 mg/dL (4.5-5.6)
[2022-03-25] VITALS (7 sets, daily range): BP systolic 154–170; BP diastolic 74–103; PULSE 80–110; RESP 18–23; TEMP 36.7–37.9; O2SAT 97–98; BMI 21.2
--- NOTE | 2022-03-25 04:19 | PC.NURSE ---
Pt alert to person and place. CIWA score has decreased from 6 to 3 t/o the shift. She is tolerating RA, O2 sat >90% Sinus arrhythmia on telemetry. Steward catheter in place draining clear/yellow urine. Pt has been incontinent of stool. No dark, tarry, or red stool noted.
[2022-03-25 07:51] LABS: Hematocrit 25.5 % (37.0-47.0); Hemoglobin 8.7 g/dL (12.2-16.2)
[2022-03-25 08:00] LABS: Magnesium 2.3 mg/dl (1.6-2.3); Phosphorous 2.6 mg/dl (2.5-4.5)
--- NOTE | 2022-03-25 11:03 | EXP.PN ---
Subjective *Date: 03/25/22 *Time: 11:03 Interval history: Date of service March 25, 2022 The patient is alert sitting up and interactive today. She voices no acute events overnight. She denies pain. There is no further diarrhea and her bowel movement yesterday was negative for melena or hematochezia. Her stool cultures are pending and her GI PCR was negative. Her urine culture is negative. Blood cultures continue to be no growth to date. Nursing staff report that she remains afebrile with stable vital signs and saturating appropriately on room air. They report that she is taking p.o. well. Her morning labs have been reviewed and discussed. PT and OT have made their assessments. Nursing staff plan to ambulate the patient regularly. Case management is assisting with discharge planning and hopes are to transition care on Sunday to [facility] senior [facility]. Exam Data for Last 24 hours Vital signs and Labs for Last 24 Hours: Temp Pulse Resp BP Pulse Ox 98.7 F 87 20 160/84 H 98 03/25/22 08:00 03/25/22 08:00 03/25/22 08:00 03/25/22 08:00 03/25/22 08:00 Laboratory Results - last 24 hr 03/23/22 11:15: Ionized Calcium 4.5 03/24/22 10:10: Sodium 143, Potassium 2.9 L*, Chloride 120 H, Carbon Dioxide 16 L, Anion Gap 9.9, BUN 30 H, Creatinine 2.00 H, Estimated Creat Clear 17, Estimated GFR 24 L, Est GFR ( Amer) 29 L, Glucose 118 H, Calcium 7.7 L 03/24/22 14:15: Sodium 141, Potassium 3.1 L, Chloride 118 H, Carbon Dioxide 17 L, Anion Gap 9.1, BUN 28 H, Creatinine 1.90 H, Estimated Creat Clear 18, Estimated GFR 26 L, Est GFR ( Amer) 31 L, Glucose 100, Calcium 7.9 L 03/24/22 16:26: Stool Occult Blood Positive A 03/24/22 16:26: Stl Aeromonas (PCR) Not detected, Stl C. cayetanensis PCR Not detected, Stool Rotavirus (PCR) Not detected, Stl Adenov F 40/41 PCR Not detected, Stool Astrovirus (PCR) Not detected, Stool Campylobacter PCR Not detected, Stl C.difficile Tox PCR Not detected, Stool Cryptosporidium PCR Not detected, Stl E.coli Shiga Tox PCR Not detected, Stool E coli O157 PCR Not detected, Stl Enterotoxigenic E PCR Not detected, Stool EPEC (PCR) Not detected, Stool EAEC (PCR) Not detected, Stl E. histolytica PCR Not detected, Stool Giardia Lamblia PCR Not detected, Stool Salmonella PCR Not detected, Stool Sapovirus (PCR) Not detected, Stl P. shigelloides PCR Not detected, Stl Shigella/EIEC PCR Not detected, St Y.enterocolitica PCR Not detected, Stool Vibrio (PCR) Not detected, Stl Vibrio cholerae PCR Not detected, Stl Norovirus GI/GII PCR Not detected 03/25/22 06:57: Hgb 8.7 L, Hct 25.5 L 03/25/22 06:57: Phosphorus 2.6, Magnesium 2.3 I & O for Last 24 hours: Intake & Output 03/22/22 03/23/22 03/24/22 03/25/22 23:59 23:59 23:59 23:59 Intake Total 0 / 0 3207 / 3207 360 / 360 Output Total 1974 1300 / 1300 1325 / 1325 Balance -1974 / -2174 1907 / 1907 -965 / -965 Weight 49.895 kg 46.011 kg 46 kg 52.345 kg Microbiology Reports for the Last 24 Hours: Microbiology 03/22/22 13:22 Urine,Clean Catch Urine Culture - Final NO GROWTH AFTER 48 HOURS Constitutional Constitutional: no acute distress, thin, chronically ill appearing and cooperative *Routine HEENT Exam Head: Present normocephalic Eye: Present EOMI and PERRL ENT: Present mucous membranes moist; Absent dentition normal *Routine Neck Exam Neck: Present supple and trachea midline; Absent JVD, carotid bruit, lymphadenopathy or thyromegaly *Routine Respiratory Exam Respiratory: Present rhonchi, normal respiratory effort and symmetric chest movement *Routine Cardiovascular Exam Cardiovascular: Present RRR; Absent murmur or JVD *Routine Abdominal Exam Abdominal: Present soft and normoactive bowel sounds; Absent tenderness *Routine Extremities Exam Extremities: Absent cyanosis, clubbing or edema Comments: Diminished muscle mass throughout *Routine Skin Exam Skin: Present warm; Absent rash *Ro
--- NOTE | 2022-03-25 11:25 | EXP.SURG.PN ---
Subjective Narrative: Patient sitting up this morning without significant complaints. Much more alert. Exam Data for Last 24 hours Vital signs and Labs for Last 24 Hours: Temp Pulse Resp BP Pulse Ox 98.7 F 87 20 160/84 H 98 03/25/22 08:00 03/25/22 08:00 03/25/22 08:00 03/25/22 08:00 03/25/22 08:00 Laboratory Results - last 24 hr 03/23/22 11:15: Ionized Calcium 4.5 03/24/22 14:15: Sodium 141, Potassium 3.1 L, Chloride 118 H, Carbon Dioxide 17 L, Anion Gap 9.1, BUN 28 H, Creatinine 1.90 H, Estimated Creat Clear 18, Estimated GFR 26 L, Est GFR ( Amer) 31 L, Glucose 100, Calcium 7.9 L 03/24/22 16:26: Stool Occult Blood Positive A 03/24/22 16:26: Stl Aeromonas (PCR) Not detected, Stl C. cayetanensis PCR Not detected, Stool Rotavirus (PCR) Not detected, Stl Adenov F 40/41 PCR Not detected, Stool Astrovirus (PCR) Not detected, Stool Campylobacter PCR Not detected, Stl C.difficile Tox PCR Not detected, Stool Cryptosporidium PCR Not detected, Stl E.coli Shiga Tox PCR Not detected, Stool E coli O157 PCR Not detected, Stl Enterotoxigenic E PCR Not detected, Stool EPEC (PCR) Not detected, Stool EAEC (PCR) Not detected, Stl E. histolytica PCR Not detected, Stool Giardia Lamblia PCR Not detected, Stool Salmonella PCR Not detected, Stool Sapovirus (PCR) Not detected, Stl P. shigelloides PCR Not detected, Stl Shigella/EIEC PCR Not detected, St Y.enterocolitica PCR Not detected, Stool Vibrio (PCR) Not detected, Stl Vibrio cholerae PCR Not detected, Stl Norovirus GI/GII PCR Not detected 03/25/22 06:57: Hgb 8.7 L, Hct 25.5 L 03/25/22 06:57: Phosphorus 2.6, Magnesium 2.3 I & O for Last 24 hours: Intake & Output 03/22/22 03/23/22 03/24/22 03/25/22 11:59 11:59 11:59 11:59 Intake Total 1973 1593 / 1593 Output Total 850 / 850 1625 / 1625 2125 / 2125 Balance -850 / -850 349 / 349 -532 / -532 Weight 101 lb 7 oz 101 lb 6.602 oz 115 lb 6.4 oz Microbiology Reports for the Last 24 Hours: Microbiology 03/22/22 13:22 Urine,Clean Catch Urine Culture - Final NO GROWTH AFTER 48 HOURS *Routine Abdominal Exam Comments: No tenderness Progress Note: A&P Assessment and plan (1) Encephalopathy acute: Status: Acute (2) TIERRA (acute kidney injury): Status: Acute (3) Type 2 myocardial infarction: Status: Acute (4) Alcohol use disorder: Status: Acute (5) Anemia: Status: Acute Assessment and plan: No melena or hematochezia with bowel movement. No hematemesis. After transfusion of 1 unit for hemoglobin of 6.8 in the evening of 03/23/2022 hemoglobin responded to 8.7. Stable at 8.7 today. Stool for occult blood is positive but hemoglobin remained stable and no evidence of melena or gross blood. No plans for urgent EGD at this time. (6) COPD (chronic obstructive pulmonary disease): Status: Acute (7) Lumbar degenerative disc disease: Status: Chronic
--- NOTE | 2022-03-25 14:18 | PC.NURSE ---
tech note; notified nurse of high blood pressure for 1200 vitals.
--- NOTE | 2022-03-25 15:20 | PC.NURSE ---
PT IS RESTING IN BED. TOLERATED SITTING UP IN THE CHAIR FOR A FEW HOURS THIS SHIFT. PT HAS AMBULATED IN THE ROOM WITH ASSISTANCE. SINCE CATHETER WAS DC'D PT HAS BEEN INCONTINENT OF BOWEL AND BLADDER. REDNESS NOTED TO THE BUTTOCKS. SCATTERED BRUISING NOTED BUE/BLE. LUNG SOUNDS DIMINISHED WITH VERY MINIMAL RHONCHI. ABDOMEN SOFT/NON TENDER WITH ACTIVE BOWEL SOUNDS. EATING AND DRINKING FAIR. PT STATES SHE DOES NOT LIKE THE ENSURE. WILL CONTINUE TO MONITOR.
--- NOTE | 2022-03-25 19:40 | ECG_ITS ---
APPROVED REPORT Exam: Resting ECG HR:141 bpm ECG Measurements Heart Rate 141 AXES MA 123 P 74 QRSd 76 QRS 73 QT 277 T 89 QTc 359 Conclusion SINUS TACHYCARDIA, POSSIBLE ATRIAL FLUTTER ST DEPRESSION, CONSIDER SUBENDOCARDIAL INJURY [0.1+ mV ST DEPRESSION] ABNORMAL ECG UNCONFIRMED REPORT Electronically signed by : Dario Dillon MD 03/27/2022 20:02:49
--- NOTE | 2022-03-25 19:42 | XR_ITS ---
PROCEDURE INFORMATION: Exam: XR Chest Exam date and time: 03/25/2022 9:47 PM Age: 76 years old Clinical indication: Shortness of breath; Additional info: [facility] TECHNIQUE: Imaging protocol: Radiologic exam of the chest. Views: 1 view. COMPARISON: CR XR CHEST PORTABLE 03/22/2022 1:44 PM FINDINGS: Lungs: Hyperinflated lungs suggesting emphysema. Mild bibasilar opacities are nonspecific. Pleural spaces: Unremarkable. No pleural effusion. No pneumothorax. Heart/Mediastinum: Unremarkable. No cardiomegaly. Vasculature: Vascular calcifications. Bones/joints: Postsurgical changes of the cervical spine. IMPRESSION: Mild bibasilar opacities are nonspecific. Please correlate clinically for evidence of infection versus aspiration pneumonitis.
--- NOTE | 2022-03-25 19:56 | EXP.EVENT.NO ---
Called to bedside for patient with acute shortness of air, and tachycardia. Blood pressure noted to be Systolic in 200s. Audible rhonchi noted and patient with severe air hunger. Pt medicated with Ativan 0.5 mg, Duoneb, Magnesium and Solumedrol. Pt with improvement in respiratory symptoms upon placement of bipap in conjunction with other interventions. Will obtain Chest xray. EKG noted, sinus tachycardia. Acute pulmonary edema suspected given anxiety and HTN. Pt resting comfortbaly at this time on Bipap.
--- NOTE | 2022-03-25 19:56 | PC.NURSE ---
Was notified by product steward of pt being SOA. upon assessment, pt appears SOA using accessory muscles to breathe. BP 200/100, EKG obtained, sinus tach 140 bpm. O2 sat 93% on 2L, rhonchi noted. Bushra HERNÁNDEZ called to bedside. New orders received and carried out at this time.
[2022-03-26] VITALS: BP 161/83; PULSE 70; PULSE 76; RESP 18; TEMP 37.3; O2SAT 96
[2022-03-26 04:00] VITALS: BP 161/103; PULSE 77; PULSE 80; RESP 18; TEMP 37; O2SAT 99
--- NOTE | 2022-03-26 04:33 | PC.NURSE ---
Pt is A&OX4. She remains on 2L NC. tolerating well with o2 sat 96-99%. Lung sounds now clear, compared to rhonchi on previous assessment. nsr/sinus tach on tele. She has been incontinent of urine this shift.
[2022-03-26 05:00] VITALS: BMI 20.8
--- NOTE | 2022-03-26 06:30 | PC.NURSE ---
pt weaned to room air. o2 sat 97%
[2022-03-26 08:00] VITALS: BP 146/72; PULSE 85; PULSE 86; RESP 18; TEMP 37.2; O2SAT 98
[2022-03-26 09:42] LABS: Basophils % 0.2 % (0.1-2.0); Eosinophils % 0.2 % (0.1-12.0); Hematocrit 26.3 % (37.0-47.0); Hemoglobin 8.7 g/dL (12.2-16.2); Lymphocytes # 0.8 K/mm3 (0.7-4.5); Lymphocytes % 9.7 % (10-50); Mean Corpuscular HGB Conc 33.2 g/dL (31.8-35.4); Mean Corpuscular Hemoglobin 33.9 pg (27.0-31.2); Monocytes # 0.3 K/mm3 (0.1-1.0); Monocytes % 3.7 % (1.7-9.3); Neutrophils # 7.1 K/mm3 (1.8-7.8); Neutrophils % 86.2 % (37.0-80.0); Platelet Count 240 K/mm3 (142-424); Red Blood Count 2.58 M/mm3 (4.20-5.40); Red Cell Distribution Width 17.1 % (11.5-17.5); White Blood Count 8.3 K/mm3 (4.8-10.8)
[2022-03-26 09:47] LABS: MANUAL DIFFERENTIAL MANUAL DIFFERENTIAL (MANUAL DIFF)
[2022-03-26 09:49] LABS: Anion Gap 13.3 mEq/L (5-15); Blood Urea Nitrogen 25 mg/dl (7-17); Calcium 8.1 mg/dl (8.4-10.2); Carbon Dioxide 18 mmol/L (22.0-30.0); Chloride 112 mmol/L (98-107); Creatinine Clearance Estimated 21 mL/min (50-200); Estimated Glomerular Filt Rate 27 ml/min (>60); GFR (African American) 33 ML/MIN (>60); Glucose 214 mg/dl (74-100); Potassium 4.3 mmoL/L (3.5-5.1); Sodium 139 mmol/L (136-145)
[2022-03-26 10:05] LABS: Procalcitonin 2.81 ng/mL (0.0-2.0)
[2022-03-26 10:14] LABS: NT Pro Brain Natriuretic Pep. 58100 pg/mL (0-450)
--- NOTE | 2022-03-26 10:28 | EXP.PN ---
Subjective *Date: 03/26/22 *Time: 10:28 Interval history: Date of service 03/26/2022 The patient reports that she became short of breath last night and required oxygen supplementation. She reports feeling nervous through the night. A chest x-ray was performed which identified mild basilar opacities that are nonspecific. Her morning BNP is elevated. Her echocardiogram from 03/23 report is pending. Nursing staff report that she is no longer requiring oxygen and saturating appropriately on room air. She remains afebrile with stable vital signs. We have reviewed and discussed her morning labs which identify a creatinine that is returned to her baseline 1.8. Her hemoglobin continues to remain stable at 8.7 and her MCV has improved. Her calcium and CO2 are improving. Exam Data for Last 24 hours Vital signs and Labs for Last 24 Hours: Temp Pulse Resp BP Pulse Ox FiO2 98.9 F 85 18 146/72 H 98 40 03/26/22 08:00 03/26/22 08:00 03/26/22 08:00 03/26/22 08:00 03/26/22 08:00 03/25/22 21:15 Laboratory Results - last 24 hr 03/26/22 09:02: WBC 8.3, RBC 2.58 L, Hgb 8.7 L, Hct 26.3 L, MCV 102.0 H, MCH 33.9 H, MCHC 33.2, RDW 17.1, Plt Count 240, MPV 9.0, Neut % (Auto) 86.2 H, Lymph % (Auto) 9.7 L, [place] % (Auto) 3.7, Eos % (Auto) 0.2, Baso % (Auto) 0.2, Neut # (Auto) 7.1, Lymph # (Auto) 0.8, [place] # (Auto) 0.3, Eos # (Auto) 0.0, Baso # (Auto) 0.0 03/26/22 09:02: Sodium 139, Potassium 4.3 D, Chloride 112 H, Carbon Dioxide 18 L, Anion Gap 13.3, BUN 25 H, Creatinine 1.80 H, Estimated Creat Clear 21, Estimated GFR 27 L, Est GFR ( Amer) 33 L, Glucose 214 H, Calcium 8.1 L, NT-Pro-B Natriuret Pep 89534 H, Procalcitonin 2.81 H I & O for Last 24 hours: Intake & Output 03/23/22 03/24/22 03/25/22 03/26/22 23:59 23:59 23:59 23:59 Intake Total 0 / 0 3207 / 3207 1010 / 1010 240 / 240 Output Total 1974 1300 / 1300 1325 / 1325 Balance -1974 1907 / 1907 -315 / -315 240 / 240 Weight 46.011 kg 46 kg 52.345 kg 51.323 kg Microbiology Reports for the Last 24 Hours: Microbiology 03/23/22 11:15 Blood Blood Culture - Preliminary NO GROWTH AFTER 48 HOURS 03/23/22 11:15 Blood Blood Culture - Preliminary NO GROWTH AFTER 48 HOURS Constitutional Constitutional: no acute distress, thin, chronically ill appearing and cooperative *Routine HEENT Exam Head: Present normocephalic Eye: Present EOMI and PERRL ENT: Present mucous membranes moist; Absent dentition normal *Routine Neck Exam Neck: Present supple and trachea midline; Absent JVD, carotid bruit, lymphadenopathy or thyromegaly *Routine Respiratory Exam Respiratory: Present rhonchi, normal respiratory effort and symmetric chest movement *Routine Cardiovascular Exam Cardiovascular: Present RRR; Absent murmur or JVD *Routine Abdominal Exam Abdominal: Present soft and normoactive bowel sounds; Absent tenderness *Routine Extremities Exam Extremities: Absent cyanosis, clubbing or edema Comments: Diminished muscle mass throughout *Routine Skin Exam Skin: Present warm; Absent rash *Routine Neurological Exam Neurological: Present alert, oriented X3, moving all extremities, vision grossly intact, hearing grossly intact and normal speech; Absent sensory deficit or motor deficit Routine Psychiatric Exam Psychiatric: Present normal affect, normal thought process, cooperative, good insight and good judgment Assessment and Plan *Assessment and plan (1) Encephalopathy acute: Status: Acute Category: Medical Code(s): G93.40 - Encephalopathy, unspecified (2) TIERRA (acute kidney injury): Status: Acute Category: Medical Code(s): N17.9 - Acute kidney failure, unspecified (3) Type 2 myocardial infarction: Status: Acute Category: Medical Code(s): I21.A1 - Myocardial infarction type 2 (4) Alcohol use disorder: Status: Acute Category: Medical C
--- NOTE | 2022-03-26 11:26 | EXP.SURG.PN ---
Subjective Patient reports: no new complaints Narrative: Patient states that she feels somewhat better. Exam Data for Last 24 hours Vital signs and Labs for Last 24 Hours: Temp Pulse Resp BP Pulse Ox FiO2 98.9 F 85 18 146/72 H 98 40 03/26/22 08:00 03/26/22 08:00 03/26/22 08:00 03/26/22 08:00 03/26/22 08:00 03/25/22 21:15 Laboratory Results - last 24 hr 03/26/22 09:02: WBC 8.3, RBC 2.58 L, Hgb 8.7 L, Hct 26.3 L, MCV 102.0 H, MCH 33.9 H, MCHC 33.2, RDW 17.1, Plt Count 240, MPV 9.0, Neut % (Auto) 86.2 H, Lymph % (Auto) 9.7 L, [place] % (Auto) 3.7, Eos % (Auto) 0.2, Baso % (Auto) 0.2, Neut # (Auto) 7.1, Lymph # (Auto) 0.8, [place] # (Auto) 0.3, Eos # (Auto) 0.0, Baso # (Auto) 0.0 03/26/22 09:02: Sodium 139, Potassium 4.3 D, Chloride 112 H, Carbon Dioxide 18 L, Anion Gap 13.3, BUN 25 H, Creatinine 1.80 H, Estimated Creat Clear 21, Estimated GFR 27 L, Est GFR ( Amer) 33 L, Glucose 214 H, Calcium 8.1 L, NT-Pro-B Natriuret Pep 49657 H, Procalcitonin 2.81 H I & O for Last 24 hours: Intake & Output 03/23/22 03/24/22 03/25/22 03/26/22 11:59 11:59 11:59 11:59 Intake Total 1973 / 1973 1593 / 1593 890 / 890 Output Total 850 / 850 1625 / 1625 2125 / 2125 0 / 0 Balance -850 / -850 349 / 349 -532 / -532 890 / 890 Weight 101 lb 7 oz 101 lb 6.602 oz 115 lb 6.4 oz 113 lb 2.365 oz Microbiology Reports for the Last 24 Hours: Microbiology 03/23/22 11:15 Blood Blood Culture - Preliminary NO GROWTH AFTER 48 HOURS 03/23/22 11:15 Blood Blood Culture - Preliminary NO GROWTH AFTER 48 HOURS *Routine Abdominal Exam Abdominal: Present soft Progress Note: A&P Assessment and plan (1) Encephalopathy acute: Status: Acute (2) TIERRA (acute kidney injury): Status: Acute (3) Type 2 myocardial infarction: Status: Acute (4) Alcohol use disorder: Status: Acute (5) Anemia: Status: Acute Assessment and plan: Her hemoglobin has been perfectly stable at exactly 8.7. No clinical bleeding. Patient would benefit from panendoscopy at some point once stable. However, patient has been acutely ill with recent AK and has shown good response to transfusion with stable hemoglobin and therefore would not perform this unless patient shows symptoms and findings consistent with active bleeding. (6) COPD (chronic obstructive pulmonary disease): Status: Acute (7) Lumbar degenerative disc disease: Status: Chronic
[2022-03-26 12:00] VITALS: BP 156/83; PULSE 80; PULSE 82; RESP 19; TEMP 37.3; O2SAT 95
[2022-03-26 13:12] LABS: Lymphocytes % 7 % (10-50); Monocytes % 1 % (2-9); Neutrophils % 90 % (42-76); Platelet Estimate Normal; RBC Morphology Normal; Total Cells Counted 100
[2022-03-26 16:00] VITALS: BP 155/81; PULSE 76; PULSE 80; RESP 18; TEMP 37.2; O2SAT 97
--- NOTE | 2022-03-26 17:02 | PC.NURSE ---
PT IS RESTING IN BED. ALERT AND ORIENTED X4. NO COMPLAINTS OF DISCOMFORT. PT TOLERATED SITTING UP IN THE CHAIR FOR SEVERAL HOURS THIS SHIFT. AMBULATED WITH PHYSICAL THERAPY. EATING AND DRINKING WELL. PT HAS BEEN INCONTINENT T/O THE SHIFT. LUNG SOUNDS HAVE SCATTERED RHONCHI. ABDOMEN SOFT/NON TENDER WITH ACTIVE BOWEL SOUNDS. WILL CONTINUE TO MONITOR.
[2022-03-26 20:00] VITALS: BP 149/94; PULSE 80; PULSE 89; RESP 18; TEMP 37.3; O2SAT 97
[2022-03-27] VITALS: BP 152/89; PULSE 80; RESP 18; TEMP 37.2; O2SAT 95
[2022-03-27 02:07] VITALS: PULSE 79; PULSE 80; O2SAT 98
[2022-03-27 04:00] VITALS: BP 148/92; PULSE 76; PULSE 80; RESP 18; TEMP 36.9; O2SAT 98
[2022-03-27 05:00] VITALS: BMI 20.1
--- NOTE | 2022-03-27 06:16 | EXP.SURG.PN ---
Subjective Patient reports: feels better Narrative: Patient states that she does feel somewhat better and possibly less bloated. Exam Data for Last 24 hours Vital signs and Labs for Last 24 Hours: Temp Pulse Resp BP Pulse Ox FiO2 98.5 F 76 18 148/92 H 98 40 03/27/22 04:00 03/27/22 04:00 03/27/22 04:00 03/27/22 04:00 03/27/22 04:00 03/25/22 21:15 Laboratory Results - last 24 hr 03/26/22 09:02: WBC 8.3, RBC 2.58 L, Hgb 8.7 L, Hct 26.3 L, MCV 102.0 H, MCH 33.9 H, MCHC 33.2, RDW 17.1, Plt Count 240, MPV 9.0, Neut % (Auto) 86.2 H, Lymph % (Auto) 9.7 L, [place] % (Auto) 3.7, Eos % (Auto) 0.2, Baso % (Auto) 0.2, Neut # (Auto) 7.1, Lymph # (Auto) 0.8, [place] # (Auto) 0.3, Eos # (Auto) 0.0, Baso # (Auto) 0.0, Total Counted 100, Neutrophils % (Manual) 90 H, Band Neutrophils % 1.0, Lymphocytes % (Manual) 7 L, Monocytes % (Manual) 1 L, Basophils % (Manual) 1.0, Platelet Estimate Normal, RBC Morphology Normal 03/26/22 09:02: Sodium 139, Potassium 4.3 D, Chloride 112 H, Carbon Dioxide 18 L, Anion Gap 13.3, BUN 25 H, Creatinine 1.80 H, Estimated Creat Clear 21, Estimated GFR 27 L, Est GFR ( Amer) 33 L, Glucose 214 H, Calcium 8.1 L, NT-Pro-B Natriuret Pep 87028 H, Procalcitonin 2.81 H I & O for Last 24 hours: Intake & Output 03/24/22 03/25/22 03/26/22 03/27/22 11:59 11:59 11:59 11:59 Intake Total 1973 / 1973 1593 / 1593 890 / 890 720 / 720 Output Total 1625 / 1625 2125 / 2125 0 / 0 0 / 0 Balance 349 / 349 -532 / -532 890 / 890 720 / 720 Weight 101 lb 6.602 oz 115 lb 6.4 oz 113 lb 2.365 oz 109 lb 4.8 oz *Routine Abdominal Exam Abdominal: Present soft; Absent tenderness Comments: Slightly distended. Nontender. Progress Note: A&P Assessment and plan (1) Encephalopathy acute: Status: Acute (2) TIERRA (acute kidney injury): Status: Acute (3) Type 2 myocardial infarction: Status: Acute (4) Alcohol use disorder: Status: Acute (5) Anemia: Status: Acute (6) COPD (chronic obstructive pulmonary disease): Status: Acute (7) Lumbar degenerative disc disease: Status: Chronic
--- NOTE | 2022-03-27 06:49 | PC.NURSE ---
NO ACUTE CHANGES SINCE PREVIOUS ASSESSMENT. LUNGS HAVE EXPIRATORY RHONCHI. PT REMAINS ALERT AND ORIENTED. REMAINS INCONTINENT. PT DID HAVE AN EPISODE OF ANXIETY LAST NIGHT AROUND 0100 AND WAS SHORT OF BREATH BUT WAS OK AFTER A SERAX AND PRN O2. PT HAS RESTED WELL SINCE. VSS. CALL LINO WITHIN REACH.
[2022-03-27 07:26] LABS: Chloride 108 mmol/L (98-107); Potassium 3.6 mmoL/L (3.5-5.1); Sodium 137 mmol/L (136-145)
[2022-03-27 07:29] LABS: Blood Urea Nitrogen 31 mg/dl (7-17); Creatinine Clearance Estimated 17 mL/min (50-200); Estimated Glomerular Filt Rate 23 ml/min (>60); GFR (African American) 28 ML/MIN (>60)
[2022-03-27 07:30] LABS: Anion Gap 10.6 mEq/L (5-15); Calcium 8.2 mg/dl (8.4-10.2); Carbon Dioxide 22 mmol/L (22.0-30.0); Glucose 91 mg/dl (74-100)
[2022-03-27 07:37] LABS: Basophils % 0.2 % (0.1-2.0); Eosinophils # 0.1 K/mm3 (0.0-0.4); Eosinophils % 1.5 % (0.1-12.0); Lymphocytes # 1.7 K/mm3 (0.7-4.5); Lymphocytes % 16.9 % (10-50); Mean Corpuscular HGB Conc 32.7 g/dL (31.8-35.4); Mean Corpuscular Hemoglobin 33.5 pg (27.0-31.2); Mean Corpuscular Volume 102.6 fl (81-99); Mean Platelet Volume 8.5 fl (7.4-10.4); Monocytes # 0.8 K/mm3 (0.1-1.0); Monocytes % 7.9 % (1.7-9.3); Neutrophils # 7.2 K/mm3 (1.8-7.8); Neutrophils % 73.4 % (37.0-80.0); Platelet Count 272 K/mm3 (142-424); Red Blood Count 2.34 M/mm3 (4.20-5.40); Red Cell Distribution Width 16.7 % (11.5-17.5); White Blood Count 9.8 K/mm3 (4.8-10.8)
[2022-03-27 07:38] LABS: Hemoglobin 7.8 g/dL (12.2-16.2)
[2022-03-27 08:00] VITALS: BP 157/67; PULSE 80; PULSE 82; RESP 20; TEMP 37.1; O2SAT 98
--- NOTE | 2022-03-27 09:10 | PC.NURSE ---
pt in room at this time
--- NOTE | 2022-03-27 09:24 | EXP.DC.SUM ---
General Admission date:: 03/23/22 Discharge date: 03/27/22 HPI HPI HPI: The patient is a 76-year-old female who presented to [facility] emergency department on March 22 for evaluation of altered mental status.? She was brought in by EMS who reported a poor social situation.? Her past medical history is significant for hypertension, degenerative disc disease of the lumbar spine on chronic narcotic and gabapentin therapy, COPD, alcohol use disorder and peripheral vascular disease.? The history is acquired from the medical record, family members and nursing staff in the ED.? The patient is somnolent but responds to stimulation and does not answer questions.? The medical record reports that she is on chronic opioid therapy with 30 morphine milliequivalents daily over the past year with additional gabapentin therapy.? It is unknown if she is overmedicated or withdrawing.? Family is concerned with her routine alcohol use and they report no prior history of alcohol withdrawal seizures or routine hospitalizations.? Her last alcohol intake is unknown.? In the ED her presenting blood pressure was 187/102 with a heart rate of 111 and respiratory rate of 20.? Her white blood cell count was normal and her lactic acid was normal.? Her urinalysis reviewed 1+ leukocyte Estrace with the rest of her urinalysis parameters normal.? A urine culture was sent but no blood cultures were acquired.? She was started on IV Rocephin.? Her initial BUN and creatinine was 65 and 5.0.? Her ABG was consistent with metabolic acidosis.? Initial ED evaluation identifies that the patient is in acute kidney injury on chronic kidney disease stage III (review of the record identifies baseline creatinine 1.8) with concerns of metabolic encephalopathy.? Initial ED physician evaluation demonstrates contact for transition of care to another facility for higher level service and nephrology care.? The patient was started on bicarb therapy with further lab evaluation.? On the morning of March 23 the patient's labs identify an improved anion gap with ongoing non-anion gap acidosis, hypokalemia, hypomagnesemia and hypocalcemia.? Her white blood cell count remained stable and her hemoglobin dropped to 7.1.? Her troponin level x 2 is crescendo. Our group was consulted for further management of her acute kidney injury, altered mental status type II NSTEMI and significant anemia in the setting of hospital capacity challenges for transition of care and nephrology services in the vicinity with influenza, RSV and COVID outbreaks.? I am accompanied by nursing staff and Ms. Jenna West to evaluate the patient for consultation and recommendations concerning her presentation.? We will add an ECG and cardiology consult to her ED work-up. Hospital Course Hospital Course Hospital Course: The patient was admitted to the medical unit with telemetry monitoring. Blood, urine and stool cultures were ordered. Cardiology and general surgery were consulted. The patient's labs and inflammatory markers were routinely monitored and trended. She was maintained on IV iron therapy with routine hemoglobin evaluations and twice daily PPI therapy. She required 1 unit of packed red blood cells on March 23. General surgery recommended conservative approach with no procedure intervention recommended during her acute illness. Her acute encephalopathy resolved with inpatient medical therapy. Cardiology identified type II NV elevated troponin level and her echocardiogram identified an ejection fraction of 55 to 60%. She was assessed with diastolic dysfunction and started on cardioprotective medications which included low-dose loop diuretic therapy, beta-andreea therapy and ARB therapy. Her renal function identified improvement with fluid resuscitation and she was maintained on sodium bicarbonate and her electrolytes were replaced. Her creatinine improved to 2.1 on discharge. She will require an outpatient nephrology consultation.
[2022-03-27 12:00] VITALS: BP 159/74; PULSE 70; RESP 18; TEMP 37.4; O2SAT 97
--- NOTE | 2022-03-27 13:49 | PC.NURSE ---
sitting up in chair awake
--- NOTE | 2022-03-29 14:47 | CARE MANAGER ---
Attempted to contact Raffi x2 and got no answer.
[2022-04-01 22:44] LABS: PTH Related Peptide < 2.0
== END 2022-03-27 14:35 | DRG 682 ==
LOC: ER 03-23 08:34 → 2ND 03-23 10:56
PROVIDERS: Surgery; Admitting Provider Family Medicine; Emergency Provider Student in an Organized Health Care Education/Training Program; PCP Emergency Medicine; Visit Provider Family Medicine
DX: N17.9 Acute kidney failure, unspecified (principal); A41.9 Sepsis, unspecified organism; R65.20 Severe sepsis without septic shock; I21.A1 Myocardial infarction type 2; N39.0 Urinary tract infection, site not specified; E87.20 Acidosis, unspecified; F11.20 Opioid dependence, uncomplicated; G93.40 Encephalopathy, unspecified; I73.9 Peripheral vascular disease, unspecified; F10.10 Alcohol abuse, uncomplicated; I25.2 Old myocardial infarction; I12.9 Hypertensive chronic kidney disease with stage 1 through stage 4 chronic kidney disease, or unspecified chronic kidney disease; N18.30 Chronic kidney disease, stage 3 unspecified; J44.9 Chronic obstructive pulmonary disease, unspecified; F19.90 Other psychoactive substance use, unspecified, uncomplicated; D63.1 Anemia in chronic kidney disease; M51.36 Other intervertebral disc degeneration, lumbar region; E83.42 Hypomagnesemia
CPT/HCPCS: 36415; 70450; 71045; 72170; 80048; 80053; 80305; 80329; 81001; 82272; 82306; 82330; 82397; 82607; 82803; 83540; 83550; 83605; 83735; 83880; 84100; 84145; 84484; 85007; 85014; 85018; 85025; 85610; 86850; 87040; 87086; 87506; 87507; 92610; 93005; 93306; 94640; 94660; 94760; 97110; 97162; 97166; 97530; 99291; C9803; G0328; J0696; J1756; J2310; J3475; P9016; U0003; U0005

== ENCOUNTER 2022-04-20 08:20 | Outpatient (CLI) | payer MEDICARE, SELFPAY ==
[2022-04-20 08:51] VITALS: BMI 18.4
[2022-04-20 10:23] LABS: Hematocrit 24.9 % (37.0-47.0); Hemoglobin 7.7 g/dL (12.2-16.2)
--- NOTE | 2022-04-20 10:26 | PC.NURSE ---
1015 - Notified Dwayne Jacobs of H/H results, states to not transfuse pt. 1025 - Report called to Raffi, explained reason for pt to not require transfusion. Pt's daughter updated on plan of care.
[2022-04-20 10:36] VITALS: BP 113/72; PULSE 69; RESP 16; TEMP 36.4; O2SAT 94
== END 2022-04-20 10:45 | disposition home or self-care (01) ==
LOC: INF 08:21
PROVIDERS: PCP Nurse Practitioner Family; Visit Provider Nurse Practitioner Family
DX: D64.9 Anemia, unspecified (principal)
CPT/HCPCS: 36415; 85014; 85018; 86850; G0463

== ENCOUNTER → 2022-09-06 23:08 | Outpatient (CLI) | payer MEDICARE, SELFPAY ==
[2022-09-06 17:48] LABS: Basophils % 0.3 % (0.1-2.0); Eosinophils # 0.1 K/mm3 (0.0-0.4); Eosinophils % 1.6 % (0.1-12.0); Hematocrit 38.5 % (37.0-47.0); Lymphocytes # 2.6 K/mm3 (0.7-4.5); Lymphocytes % 35.7 % (10-50); Mean Corpuscular HGB Conc 31.2 g/dL (31.8-35.4); Mean Corpuscular Hemoglobin 31.4 pg (27.0-31.2); Mean Corpuscular Volume 100.7 fl (81-99); Monocytes # 0.5 K/mm3 (0.1-1.0); Monocytes % 6.5 % (1.7-9.3); Neutrophils # 4.1 K/mm3 (1.8-7.8); Neutrophils % 55.9 % (37.0-80.0); Platelet Count 374 K/mm3 (142-424); Red Blood Count 3.82 M/mm3 (4.20-5.40); Red Cell Distribution Width 18.7 % (11.5-17.5); White Blood Count 7.3 K/mm3 (4.8-10.8)
[2022-09-06 17:49] LABS: Alanine Aminotransferase 16 U/L (12-78); Albumin/Globulin Ratio 1.4 (1.1-1.8); Alkaline Phosphatase 54 U/L (38-126); Anion Gap 26.7 mEq/L (5-15); Aspartate Amino Transferase 29 U/L (14-36); Bilirubin,Total 0.5 mg/dl (0.2-1.3); Blood Urea Nitrogen 45 mg/dl (7-17); Calcium 9.6 mg/dl (8.4-10.2); Carbon Dioxide 12 mmol/L (22.0-30.0); Chloride 104 mmol/L (98-107); Estimated Glomerular Filt Rate 18 ml/min (>60); GFR (African American) 22 ML/MIN (>60); Globulin 3.5 g/dL (1.3-3.2); Glucose 98 mg/dl (74-100); Potassium 5.7 mmoL/L (3.5-5.1); Sodium 137 mmol/L (136-145); Total Protein,Serum 8.5 g/dl (6.3-8.2)
[2022-09-06 18:18] LABS: Thyroid Stimulating Hormone 2.32 uIU/mL (0.465-4.68)
== END ==
PROVIDERS: PCP Emergency Medicine; Visit Provider Emergency Medicine
DX: I10 Essential (primary) hypertension (principal); D64.9 Anemia, unspecified
CPT/HCPCS: 80053; 84443; 85025

== ENCOUNTER 2022-09-08 10:54 | Outpatient (CLI) | payer MEDICARE, SELFPAY ==
[2022-09-08 11:00] VITALS: BMI 17.4
[2022-09-08 11:15] VITALS: BP 140/71; PULSE 72; RESP 18; TEMP 37; O2SAT 98
[2022-09-08 11:27] LABS: Anion Gap 24.3 mEq/L (5-15); Blood Urea Nitrogen 54 mg/dl (7-17); Calcium 9.5 mg/dl (8.4-10.2); Carbon Dioxide 12 mmol/L (22.0-30.0); Chloride 110 mmol/L (98-107); Creatinine Clearance Estimated 12 mL/min (50-200); Estimated Glomerular Filt Rate 17 ml/min (>60); GFR (African American) 21 ML/MIN (>60); Glucose 87 mg/dl (74-100); Potassium 5.3 mmoL/L (3.5-5.1); Sodium 141 mmol/L (136-145)
[2022-09-08 12:15] VITALS: BP 147/81; PULSE 75; RESP 18
[2022-09-08 13:15] VITALS: BP 151/81; PULSE 82; RESP 18
[2022-09-08 14:20] VITALS: BP 137/76; PULSE 81; RESP 18
[2022-09-08 15:00] VITALS: BP 145/79; PULSE 79; RESP 18
== END 2022-09-08 15:06 | disposition home or self-care (01) ==
LOC: INF 10:55
PROVIDERS: PCP Emergency Medicine; Visit Provider Emergency Medicine
DX: E87.5 Hyperkalemia (principal)
CPT/HCPCS: 80048; 96360; 96361

== ENCOUNTER → 2022-10-09 12:18 | Outpatient (CLI) | payer MEDICARE, MEDICAID, SELFPAY ==
--- NOTE | 2022-10-09 | CA_ITS ---
APPROVED REPORT Exam: Pharmacologic Technologist: Vanessa Gaviria Ht: 5 ft 3 in Wt: 105 lbs BSA: 1.47 m2 HR: 99 bpm BP: 190/98 mmHg Rhythm: Sinus tachycardia Indications: Chest pain Medical History Medications: Amlodipine,,,,, Irbesartan,,,,, Aspirin,,,,, Vitamin D3,,,,, Oxazepam,,,,, Atorvastatin,,,,, Ropinirole,,,,, FOLIC ACID,,,,, Acetaminophen,,,,, BisOPROLOL,,,,, Trazodone,,,,, SoDIUM BICARB,,,,, Stress Test Details Test: LEXISCAN HR Resting HR: 97 bpm Max Heart Rate (APMHR): 142 bpm Max HR Achieved: 135 bpm Target HR (85% APMHR): 121 bpm % of APMHR: 95 Recovery HR: 112 bpm BP Resting BP: 190/98 mmHg Max BP: 201/105 mmHg Recovery BP: 150.0/92.0 mmHg ECG Resting ECG: Sinus tachycardia, LVH with strain pattern Stress ECG: No change Arrhythmia: None Recovery ECG: No change Recovery Arrhythmia: None Clinical Exercise duration: 04:00 min Highest Stage Achieved: Exercise capacity: n/a METs Stress ECG Conclusion Symptoms: Dyspnea Arrhythmias/Ectopy: none ST-T Changes: No significant change compared to baseline Conclusion: Non-diagnostic pharmacologic ECG stress test due to baseline LVH with strain pattern and baseline ST abnormalities. Myoview images are reported separately. Test Summary REST . . . . . . . Resting REST 04:05 . . 97 . 190/ 98 . . Stage 1 . . . . . . . Myoview Injected Stage 1 01:00 . . 106 . . . . Stage 2 01:00 . . 112 . . . . Stage 3 01:00 . . 112 . . . . Stage 4 01:00 . . 113 . 160/ 90 . Stop exercise at 04:00 RECOVERY 01:00 . . 112 . . . . RECOVERY 02:00 . . 112 . 152/ 92 . . RECOVERY 03:00 . . 112 . 152/ 92 . . RECOVERY 04:00 . . 0 . 152/ 92 . . RECOVERY 04:57 . . 0 . 152/ 92 . . Electronically signed by : Hermila Turner, 10/10/2022 00:01:42
--- NOTE | 2022-10-09 12:18 | NM_ITS ---
APPROVED REPORT Exam: Nuclear Stress Test Indication: CHEST PAIN Patient Location: Outpatient Stress Tech: Vanessa Gaviria [place] Tech:MARII Gallardo RT(R)(N) Ht: 5 ft 3 in Wt: 104 lbs Bra Size: A HR: 99 bpm BP: 170/98 mmHg BSA: 1.46 m2 Rhythm: Sinus tachycardia TID: 0.98 BMI: 18.4 History: CHEST PAIN Procedure: Patient received 0.4 mg of intravenous Lexiscan, resting heart rate 99 bpm, resting blood pressure 170/98 mmHg, with Lexiscan maximum heart rate achieved was 112 bpm which is 85 % of the maximum predicted heart rate and blood pressure was 180/102 mmHg. With Lexiscan, patient denied any complaint of chest pain. The patient was unable to lay on her abdomen for prone images. Cardiac Stress and Resting SPECT Images: Cardiac Stress and Resting SPECT images were obtained using technetium 99m Myoview 31.3 mCi stress and 10.42 mCi at rest. The patient was unable to lie on her abdomen, and therefore prone stress imaging was not obtained. This may affect the diagnostic interpretation of the study. Resting and stress imaging in supine position demonstrate a medium sized, mild, fixed perfusion defect in the basal to mid anterior LV wall. There is also a medium sized, mild, fixed perfusion defect present in the basal to mid inferior wall. Gated imaging demonstrates mild reduction in global LV systolic function. There is moderate hypokinesis in the basal anterior and inferior LV mcfadden. LVEF is calculated at 42%. Conclusion: The patient was unable to lie on her abdomen, and therefore prone stress imaging was not obtained. This may affect the diagnostic interpretation of the study. Medium sized, mild, fixed perfusion defect in the basal to mid anterior LV wall. There is also a medium sized, mild, fixed perfusion defect present in the basal to mid inferior wall. No evidence of reversible ischemia. Gated imaging demonstrates mild reduction in global LV systolic function. There is moderate hypokinesis in the basal anterior and inferior LV mcfadden. LVEF is calculated at 42%. Electronically signed by : Hermila Turner, 10/10/2022 00:07:51
== END ==
LOC: RAD 12:18
PROVIDERS: PCP Emergency Medicine; Visit Provider Emergency Medicine
DX: R07.9 Chest pain, unspecified (principal)
CPT/HCPCS: 78452; 93017; A9502; J2785

== ENCOUNTER → 2022-10-18 13:54 | Outpatient (CLI) | payer MEDICARE, MEDICAID, SELFPAY | LOC: RT 13:55 | PROVIDERS: PCP Emergency Medicine; Visit Provider Emergency Medicine | DX: R07.9 Chest pain, unspecified (principal) | CPT/HCPCS: 93306 ==

== ENCOUNTER → 2022-10-24 23:38 | Outpatient (CLI) | payer MEDICARE, MEDICAID, SELFPAY ==
[2022-10-24 18:27] LABS: Basophils % 0.3 % (0.1-2.0); Eosinophils # 0.2 K/mm3 (0.0-0.4); Eosinophils % 3.5 % (0.1-12.0); Hematocrit 33.4 % (37.0-47.0); Hemoglobin 9.9 g/dL (12.2-16.2); Lymphocytes # 2.2 K/mm3 (0.7-4.5); Lymphocytes % 36.1 % (10-50); Mean Corpuscular HGB Conc 29.6 g/dL (31.8-35.4); Mean Corpuscular Hemoglobin 30.5 pg (27.0-31.2); Mean Corpuscular Volume 103.2 fl (81-99); Mean Platelet Volume 9.4 fl (7.4-10.4); Monocytes # 0.5 K/mm3 (0.1-1.0); Monocytes % 7.6 % (1.7-9.3); Neutrophils # 3.2 K/mm3 (1.8-7.8); Neutrophils % 52.4 % (37.0-80.0); Platelet Count 417 K/mm3 (142-424); Red Blood Count 3.23 M/mm3 (4.20-5.40); Red Cell Distribution Width 16.7 % (11.5-17.5); White Blood Count 6.2 K/mm3 (4.8-10.8)
[2022-10-24 18:33] LABS: Alanine Aminotransferase 18 U/L (12-78); Albumin Level 4.7 g/dl (3.5-5.0); Albumin/Globulin Ratio 1.3 (1.1-1.8); Alkaline Phosphatase 69 U/L (38-126); Anion Gap 18.1 mEq/L (5-15); Aspartate Amino Transferase 30 U/L (14-36); Bilirubin,Total 0.3 mg/dl (0.2-1.3); Blood Urea Nitrogen 42 mg/dl (7-17); Calcium 9.5 mg/dl (8.4-10.2); Carbon Dioxide 21 mmol/L (22.0-30.0); Chloride 106 mmol/L (98-107); Chol/HDL Ratio 3.8 (1-3.5); Cholesterol 203 mg/dl (140-200); Estimated Glomerular Filt Rate 16 ml/min (>60); GFR (African American) 20 ML/MIN (>60); Globulin 3.5 g/dL (1.3-3.2); Glucose 97 mg/dl (74-100); HDL Cholesterol 53 mg/dl (40-60); Potassium 5.1 mmoL/L (3.5-5.1); Sodium 140 mmol/L (136-145); Total Protein,Serum 8.2 g/dl (6.3-8.2); Triglycerides 113 mg/dl (30-150); VLDL Cholesterol 23 mg/dL (0-40)
[2022-10-24 18:45] LABS: Direct LDL Cholesterol 91.76 mg/dL (100-129)
[2022-10-24 18:50] LABS: Free T4 (Free Thyroxine) 1.14 ng/dl (0.78-2.19)
[2022-10-24 19:03] LABS: Thyroid Stimulating Hormone 2.76 uIU/mL (0.465-4.68)
[2022-10-24 22:27] LABS: Hemoglobin A1C 4.7 % (4.0-6.0)
[2022-10-25 14:21] LABS: Iron 69 ug/dL (37-170)
[2022-10-25 14:30] LABS: Total Iron Binding Capacity 346 ug/dL (265-497)
== END ==
PROVIDERS: Physician Assistant; PCP Emergency Medicine; Visit Provider Emergency Medicine
DX: D64.9 Anemia, unspecified (principal); M51.36 Other intervertebral disc degeneration, lumbar region; I21.A1 Myocardial infarction type 2
CPT/HCPCS: 80053; 80061; 83036; 83540; 83550; 84439; 84443; 85025

== ENCOUNTER → 2022-11-02 13:07 | Outpatient (CLI) | payer MEDICARE, MEDICAID, SELFPAY ==
--- NOTE | 2022-11-02 | US_ITS ---
FINAL REPORT CLINICAL HISTORY: current smoker, HTN, hx [place], PVD, bilateral rest pain, bilateral claudication, bilateral weak pulses, right lower extremity redness and edema x 2 weeks. FINDINGS: COMPLETE ANKLE/BRACHIAL INDICES BILATERAL Complete ankle brachial indices were obtained. The right YAA is 0.7. The left YAA is 0.9. IMPRESSION: Mild to moderate peripheral vascular disease on the right. Normal YAA on the left. Reviewed, Interpreted and Dictated by Prema Walker MD Transcribed by Lorraine Lanier Authenticated and [facility]
== END ==
LOC: RT 13:07
PROVIDERS: PCP Emergency Medicine; Visit Provider Physician Assistant
DX: I73.9 Peripheral vascular disease, unspecified (principal)
CPT/HCPCS: 93923

== ENCOUNTER → 2022-11-09 13:02 | Outpatient (CLI) | payer MEDICARE, MEDICAID, SELFPAY ==
[2022-11-09 13:03] LABS: Basophils % 0.4 % (0.1-2.0); Eosinophils # 0.2 K/mm3 (0.0-0.4); Eosinophils % 3.4 % (0.1-12.0); Hematocrit 34.1 % (37.0-47.0); Hemoglobin 10.2 g/dL (12.2-16.2); Lymphocytes # 2.7 K/mm3 (0.7-4.5); Lymphocytes % 42.3 % (10-50); Mean Corpuscular Volume 103.2 fl (81-99); Mean Platelet Volume 9.5 fl (7.4-10.4); Monocytes # 0.5 K/mm3 (0.1-1.0); Monocytes % 7.6 % (1.7-9.3); Neutrophils % 46.3 % (37.0-80.0); Platelet Count 379 K/mm3 (142-424); Red Blood Count 3.31 M/mm3 (4.20-5.40); White Blood Count 6.5 K/mm3 (4.8-10.8)
[2022-11-09 13:21] LABS: Alanine Aminotransferase 12 U/L (12-78); Albumin Level 4.9 g/dl (3.5-5.0); Albumin/Globulin Ratio 1.5 (1.1-1.8); Alkaline Phosphatase 69 U/L (38-126); Anion Gap 20.2 mEq/L (5-15); Aspartate Amino Transferase 22 U/L (14-36); Bilirubin,Total 0.2 mg/dl (0.2-1.3); Blood Urea Nitrogen 46 mg/dl (7-17); Calcium 9.5 mg/dl (8.4-10.2); Carbon Dioxide 15 mmol/L (22.0-30.0); Chloride 111 mmol/L (98-107); Estimated Glomerular Filt Rate 16 ml/min (>60); GFR (African American) 20 ML/MIN (>60); Globulin 3.2 g/dL (1.3-3.2); Glucose 82 mg/dl (74-100); Potassium 5.2 mmoL/L (3.5-5.1); Sodium 141 mmol/L (136-145); Total Protein,Serum 8.1 g/dl (6.3-8.2)
== END ==
PROVIDERS: PCP Emergency Medicine; Visit Provider Physician Assistant
DX: D64.9 Anemia, unspecified (principal); N28.9 Disorder of kidney and ureter, unspecified
CPT/HCPCS: 80053; 85025

== ENCOUNTER → 2022-12-19 13:45 | Outpatient (CLI) | payer MEDICARE, MEDICAID, SELFPAY ==
[2022-12-19 19:23] LABS: Basophils % 0.3 % (0.1-2.0); Eosinophils # 0.2 K/mm3 (0.0-0.4); Eosinophils % 2.5 % (0.1-12.0); Hematocrit 36.9 % (37.0-47.0); Hemoglobin 11.7 g/dL (12.2-16.2); Lymphocytes # 2.9 K/mm3 (0.7-4.5); Mean Corpuscular HGB Conc 31.7 g/dL (31.8-35.4); Mean Corpuscular Hemoglobin 32.1 pg (27.0-31.2); Mean Corpuscular Volume 101.2 fl (81-99); Monocytes # 0.4 K/mm3 (0.1-1.0); Monocytes % 5.6 % (1.7-9.3); Neutrophils # 4.4 K/mm3 (1.8-7.8); Neutrophils % 55.7 % (37.0-80.0); Platelet Count 309 K/mm3 (142-424); Red Blood Count 3.64 M/mm3 (4.20-5.40); Red Cell Distribution Width 15.7 % (11.5-17.5); White Blood Count 7.9 K/mm3 (4.8-10.8)
[2022-12-19 20:04] LABS: Alanine Aminotransferase 12 U/L (12-78); Albumin Level 4.6 g/dl (3.5-5.0); Albumin/Globulin Ratio 1.2 (1.1-1.8); Alkaline Phosphatase 65 U/L (38-126); Anion Gap 23.6 mEq/L (5-15); Aspartate Amino Transferase 25 U/L (14-36); Bilirubin,Total 0.3 mg/dl (0.2-1.3); Blood Urea Nitrogen 42 mg/dl (7-17); Calcium 9.2 mg/dl (8.4-10.2); Carbon Dioxide 11 mmol/L (22.0-30.0); Chloride 108 mmol/L (98-107); Estimated Glomerular Filt Rate 20 ml/min (>60); GFR (African American) 25 ML/MIN (>60); Globulin 3.8 g/dL (1.3-3.2); Glucose 97 mg/dl (74-100); Potassium 5.6 mmoL/L (3.5-5.1); Sodium 137 mmol/L (136-145); Total Protein,Serum 8.4 g/dl (6.3-8.2)
== END ==
PROVIDERS: PCP Emergency Medicine; Visit Provider Emergency Medicine
DX: M51.36 Other intervertebral disc degeneration, lumbar region (principal); N28.9 Disorder of kidney and ureter, unspecified
CPT/HCPCS: 80053; 85025

== ENCOUNTER → 2023-02-16 15:03 | Outpatient (CLI) | payer MEDICARE, MEDICAID, SELFPAY ==
[2023-02-16 18:33] LABS: Anion Gap 19.8 mEq/L (5-15); Blood Urea Nitrogen 32 mg/dl (7-17); Calcium 9.4 mg/dl (8.4-10.2); Carbon Dioxide 18 mmol/L (22.0-30.0); Chloride 105 mmol/L (98-107); Estimated Glomerular Filt Rate 22 ml/min (>60); GFR (African American) 26 ML/MIN (>60); Glucose 102 mg/dl (74-100); Potassium 4.8 mmoL/L (3.5-5.1); Sodium 138 mmol/L (136-145)
== END ==
PROVIDERS: PCP Emergency Medicine; Visit Provider Emergency Medicine
DX: N28.9 Disorder of kidney and ureter, unspecified (principal)
CPT/HCPCS: 80048

== ENCOUNTER → 2023-04-13 09:18 | Outpatient (CLI) | payer MEDICARE, MEDICAID, SELFPAY ==
[2023-04-13 18:52] LABS: Amphetamine/Metha Screen,Urine Negative ng/ml (<1000); Barbiturates Screen,Urine Negative ng/ml (<200)
[2023-04-13 18:53] LABS: Benzodiazepines Screen,Urine Negative ng/ml (<200)
[2023-04-13 18:54] LABS: Cannabinoid Screen,Urine Negative ng/ml (<50); Cocaine Screen,Urine Negative ng/ml (<300)
[2023-04-13 18:55] LABS: Methadone Screen,Urine Negative ng/ml (<300); Opiate Screen,Urine Positive ng/ml (<300)
[2023-04-13 18:56] LABS: Phencyclidine Screen,Urine Negative ng/ml (<25)
== END ==
LOC: LAB.DROPOF 04-14 09:20
PROVIDERS: PCP Nurse Practitioner Family; Visit Provider Nurse Practitioner Family
DX: M51.36 Other intervertebral disc degeneration, lumbar region (principal); M54.50 Low back pain, unspecified
CPT/HCPCS: 80307

== ENCOUNTER 2023-05-09 22:08 | Outpatient (CLI) | payer MEDICARE, MEDICAID, SELFPAY ==
[2023-05-09 23:54] LABS: Amphetamine/Metha Screen,Urine Negative ng/ml (<1000); Barbiturates Screen,Urine Negative ng/ml (<200)
[2023-05-09 23:55] LABS: Benzodiazepines Screen,Urine Negative ng/ml (<200); Cannabinoid Screen,Urine Negative ng/ml (<50)
[2023-05-09 23:56] LABS: Cocaine Screen,Urine Negative ng/ml (<300)
[2023-05-09 23:57] LABS: Methadone Screen,Urine Negative ng/ml (<300); Opiate Screen,Urine Positive ng/ml (<300)
[2023-05-09 23:58] LABS: Phencyclidine Screen,Urine Negative ng/ml (<25)
[2023-05-15 11:20] LABS: Codeine Negative (Cutoff=100); Hydrocodone Positive (.); Hydrocodone Confirm 905 ng/mL (Cutoff=100); Hydromorphone Positive (.); Hydromorphone Confirm 138 ng/mL (Cutoff=100); Morphine Negative (Cutoff=100); Opiates Positive (.)
== END 2023-05-09 23:59 ==
LOC: LAB.DROPOF 22:09
PROVIDERS: PCP Nurse Practitioner Family; Visit Provider Nurse Practitioner Family
DX: Z79.899 Other long term (current) drug therapy (principal)
CPT/HCPCS: 80307; 80361; G0480

== ENCOUNTER 2023-07-31 16:19 | Outpatient (CLI) | payer MEDICARE, MEDICAID, SELFPAY | END 2023-07-31 23:59 | LOC: LAB.DROPOF 08-01 16:21 | PROVIDERS: PCP Nurse Practitioner Family; Visit Provider Nurse Practitioner Family | DX: N39.0 Urinary tract infection, site not specified (principal); B96.89 Other specified bacterial agents as the cause of diseases classified elsewhere | CPT/HCPCS: 87086 ==

== ENCOUNTER 2024-01-30 11:35 | Emergency (ER) | payer MEDICARE, MEDICAID, SELFPAY ==
[2024-01-30] VITALS (13 sets, daily range): BP systolic 126–188; BP diastolic 85–131; PULSE 73–124; RESP 19–25; TEMP 36.6–36.8; O2SAT 92–97; BMI 22.8
--- NOTE | 2024-01-30 11:40 | ECG_ITS ---
APPROVED REPORT Exam: Resting ECG HR:120 bpm ECG Measurements Heart Rate 120 AXES AZ 161 P 76 QRSd 77 QRS 82 QT 310 T 89 QTc 382 Conclusion SINUS TACHYCARDIA LEFT VENTRICULAR HYPERTROPHY AND ST-T CHANGE [VOLTAGE CRITERIA PLUS ST/T ABNORMALITY] ABNORMAL ECG UNCONFIRMED REPORT Electronically signed by : KARLO PAREDES, 01/31/2024 00:30:53
--- NOTE | 2024-01-30 11:40 | PC.NURSE ---
Dr. Buchanan at [facility] for pt eval
--- NOTE | 2024-01-30 11:44 | CT_ITS ---
FINAL REPORT TECHNIQUE: Axial CT images were performed through the head. Coronal reformatted images were submitted. This study was performed with techniques to keep radiation doses as low as reasonably achievable (ALARA). Individualized dose reduction techniques using automated exposure control or adjustment of mA and/or kV according to the patient's size were employed. CLINICAL HISTORY: AMS, subjective aphasia, stroke symptoms COMPARISON: 03/22/2022 FINDINGS: There is intraparenchymal hemorrhage centered in the posterior left basal ganglia measuring 3.2 x 2.1 cm. The majority of the hemorrhage appears to be intraventricular with intraventricular extension into the left lateral ventricle. There is moderate vasogenic edema. There is abnormal decreased attenuation throughout the deep white matter bilaterally, probably due to chronic ischemia. IMPRESSION: Intraparenchymal hematoma with intraventricular extension consistent with acute hemorrhage. Mohan Bermudez RN was notified of findings on 01/30/2024 at 1:16 p.m. Reviewed, Interpreted and Dictated by Sean Guzman MD Transcribed by Lorraine Lanier Authenticated and [facility]
[2024-01-30 11:51] LABS: Microscopic, Urine URINE MICROSCOPIC (MICROSCOPIC)
[2024-01-30 11:52] LABS: Basophils # 0.1 K/mm3 (0-0.2); Basophils % 0.5 % (0.1-2.0); Eosinophils # 0.3 K/mm3 (0.0-0.4); Eosinophils % 3.6 % (0.1-12.0); Hematocrit 35.9 % (37.0-47.0); Hemoglobin 11.5 g/dL (12.2-16.2); Lymphocytes # 2.4 K/mm3 (0.7-4.5); Lymphocytes % 24.8 % (10-50); Mean Corpuscular HGB Conc 32.1 g/dL (31.8-35.4); Mean Corpuscular Hemoglobin 31.4 pg (27.0-31.2); Mean Corpuscular Volume 97.7 fl (81-99); Mean Platelet Volume 7.4 fl (7.4-10.4); Monocytes # 0.5 K/mm3 (0.1-1.0); Monocytes % 5.1 % (1.7-9.3); Neutrophils # 6.3 K/mm3 (1.8-7.8); Platelet Count 493 K/mm3 (142-424); Red Blood Count 3.67 M/mm3 (4.20-5.40); Red Cell Distribution Width 15.7 % (11.5-17.5); White Blood Count 9.5 K/mm3 (4.8-10.8)
[2024-01-30] MEDS: 0.9 % SODIUM CHLORIDE 1000ML 1,000 ML 999 ML IV (11:55)
[2024-01-30 11:56] LABS: Appearance,Urine CLEAR (Clear); Bilirubin,Urine Negative (Negative); Blood, Urine TRACE-I (Negative); Color,Urine YELLOW (Yellow); Glucose,Urine (UA) Negative (Negative); Ketones,Urine Negative (Negative); Leukocyte Esterase,Urine Negative (Negative); Nitrate,Urine Negative (Negative); Protein,Urine 1+ (Negative); Specific Gravity, Urine 1.015 (1.005-1.030); Urobilinogen,Urine 0.2 EU/dl (0.2)
--- NOTE | 2024-01-30 11:57 | ED_ITS ---
Discharge Plan Disposition Patient Disposition: Xfer Short-Term Hosp Chief Complaint: Altered Mental Status Prescriptions Prescriptions: No Action oxybutynin chloride 5 mg tablet 5 mg PO DAILY Qty: 30 2RF bisoprolol fumarate 5 mg tablet 5 mg PO .twice daily 30 Days Qty: 60 4RF aspirin 325 mg tablet 325 mg PO DAILY calcium carbonate-vitamin D3 [Oyster Shell Calcium-Vit D3] 500 mg-5 mcg (200 unit) tablet 1 tab PO BID Qty: 180 1RF cholecalciferol (vitamin D3) 1,250 mcg (50,000 unit) capsule See Rx Instructions .ROUTE .COMPLEX Qty: 14 2RF Dose Instruction: TAKE 1 CAPSULE BY MOUTH EVERY WEEK Rx Instructions: TAKE 1 CAPSULE BY MOUTH EVERY WEEK folic acid 1 mg tablet 1 mg PO DAILY Qty: 90 0RF multivitamin with folic acid [Tab-A-Ruthy] 400 mcg tablet 1 tab PO DAILY Qty: 90 0RF ropinirole 2 mg tablet 2 mg PO BID Qty: 180 3RF amlodipine 5 mg tablet See Rx Instructions .ROUTE .COMPLEX Qty: 90 0RF Dose Instruction: TAKE 1 TABLET BY MOUTH DAILY FOR HYPERTENSION Rx Instructions: TAKE 1 TABLET BY MOUTH DAILY FOR HYPERTENSION atorvastatin [Lipitor] 80 mg tablet 80 mg PO DAILY Qty: 90 0RF fluticasone furoate-vilanterol [Breo Ellipta] 100-25 mcg/dose blister with device 1 inh INHALATION DAILY Qty: 60 2RF hydrocodone-acetaminophen 5-325 mg tablet 1 tab PO TID PRN (Reason: pain) Qty: 90 0RF Referrals Follow up/Referrals: Provider,Referral, MD [Referring] - See instructions Clinical Impressions Clinical Impression: Intracranial hemorrhage, Intraventricular hemorrhage, Acute hyperkalemia, CKD (chronic kidney disease) Stand Alone Forms Stand Alone Forms: Transfer Record - ED Instructions Patient Instructions: DI for Altered Mental Status Print Language Print Language: Romanian Discharge ED Provider: Davian Buchanan General Adult HPI General Chief complaint: Altered Mental Status Stated complaint: possible stroke, abnormal speech Time Seen by Provider: 01/30/24 11:44 Mode of Arrival: EMS Source of Information: Patient and EMS Limitations: No Limitations Description of Symptoms (Recalled from ER Triage Doc. by RN): pt presents to ED via [facility] ems for ams slurred speech, weakness. pt unable to answer many questions. daughter at bedside rpeorts pt was fine saad afternoon. ems reports they were called to scene by [employer] elis person. History of Present Illness HPI narrative: Please note that above description of symptoms, in this electronic medical record under categorization of recalled from ER triage doctor by RN are reflective of an initial nursing assessment, however, is not reflective of my full history and physical exam that was personally taken and clarified. Consequentially, this preceding description of symptoms, which may include the patient's categorized chief complaint in the EMR, do not reflect my personal clinical impression, and the ultimate description of history of present illness and patient stated complaints should be deferred to this section of the note. Unless stated otherwise or congruent with this section of the note, additional signs, symptoms, or incongruence should be interpreted as inaccurate with my clinical impression. Related Data Home Medications ?Medication ?Instructions ?Recorded ?Confirmed aspirin 325 mg tablet 325 mg PO DAILY 03/13/23 10/24/23 Previous Rx's ?Medication ?Instructions ?Recorded folic acid 1 mg tablet 1 mg PO DAILY Supplement #90 tabs 05/11/22 multivitamin with folic acid 400 1 tab PO DAILY Supplement #90 tabs 05/11/22 mcg tablet (Tab-A-Ruthy) bisoprolol fumarate 5 mg tablet 5 mg PO .twice daily 30 days #60 12/11/22 tabs calcium 500 mg (as 1 tab PO BID Supplement #180 tabs 05/09/23 carbonate)-vitamin D3 5 mcg (200 unit) tablet (Oyster Shell Calcium-Vitamin D3) cholecalciferol (vitamin D3) 1,250 See Rx Instructions .Route 05/09/23 mcg (50,000 unit) capsule .COMPLEX #14 caps oxybutynin chloride 5 mg tablet 5 mg PO DAILY #30 tabs 07/31/23 ropinirole 2 mg tablet 2 mg PO BID #180 tabs 10/08/23 amlodipine 5 mg tablet See Rx Instructions .Route 10/25/23 .COMPLEX #90 tabs atorvastatin 80 mg tablet (Lipitor) 80 mg PO DAILY #90 tabs 12/21/23 fluticasone furoate 100 1 inh inhalation DAILY Breathing 01/18/24 mcg-vilanterol 25 mcg/dose problems #60 ea inhalation powder (Breo Ellipta) hydrocodone 5 mg-acetaminophen 325 1 tab PO TID PRN pain #90 tabs 01/18/24 mg tablet Allergies Allergy/AdvReac Type Severity Reaction Status Date / Time No Known Allergies Allergy Verified 10/24/23 13:16 [facility] Disclaimer: The information contained in this section may have been updated after the patient was seen, as this information can be updated by other users. Medical History Unsteady gait Metabolic acidosis Type 2 myocardial infarction Vitamin D deficiency (~09/13/17) Lumbar foraminal stenosis Lumbar facet arthropathy Lumbar degenerative disc disease Social History Smoking Status: Current every day smoker tobacco type: cigarettes packs per day: 2 alcohol intake: current alcohol intake frequency: a few times a week substance use type: denies use current occupational status: retired Travel in the last 8 weeks: None household members: foster family housing: longterm Other Medical History Have you received the Flu Vaccine for this season: No Have you received the Pneumonia Vaccine: Yes ROS Obtained: Yes All systems reviewed & no additional complaints except as documented Physical Exam General General appearance: alert, in no apparent distress and other (Disheveled, unkempt, smells of old urine) Head Head exam: atraumatic and normocephalic Eye Eye exam: Present normal appearance, PERRL and EOMI ENT ENT exam: Present mucous membranes dry (Poor dentition) Neck Neck exam: Present normal inspection, full ROM and trachea midline Respiratory Respiratory exam: Present normal lung sounds bilaterally and other (Quiet in lung bases posteriorly); Absent respiratory distress, wheezes, stridor, accessory muscle use or prolonged expiratory phase Cardiovascular Cardiovascular exam: Present normal rhythm, tachycardia and other (Pulses equal symmetric in upper and lower extremities) Abdominal Exam Abdominal exam: Present soft; Absent distention, tenderness, guarding, rebound, rigidity or pulsatile mass Extremities Exam Extremities exam: Absent edema Neurological Exam Neurological exam: Present alert, oriented X3, CN II-XII intact and other (Patient has bilateral upper and bilateral lower extremity weakness which is symmetric. Following commands); Absent motor sensory deficit Skin Skin exam: Present warm and dry; Absent diaphoresis or erythema Medical Decision Making Medical Records Medical records reviewed: Yes I reviewed the patient's medical records. Screening: Per USPSTF and CDC recommendations, given the prevalence of disease in our region, it is our hospital?s policy to screen for HIV and viral Hepatitis for all patients aged 18 and over and those with ongoing risk factors. Alexis Inquiry Pt receiving controlled substance: No Alexis was queried for this patient: No Vital Signs: 01/30/24 11:35 01/30/24 11:38 01/30/24 12:07 Temperature 97.9 F Temperature Source Oral Pulse Rate 112 H 109 H Pulse Rate [Left Radial] 122 H Respiratory Rate 19 19 Blood Pressure 171/128 H 173/123 H Blood Pressure [Right Arm] 171/128 H Blood Pressure Mean 146 Blood Pressure Mean [Right Arm] 142 02 Sat by Pulse Oximetry 96 96 97 Oxygen Delivery Method Room Air Room Air Room Air Lab Data Lab Results 01/30/24 11:20: WBC 9.5, RBC 3.67 L, Hgb 11.5 L, Hct 35.9 L, MCV 97.7, MCH 31.4 H, MCHC 32.1, RDW 15.7, Plt Count 493 H, MPV 7.4, Neut % (Auto) 66.0, Lymph % (Auto) 24.8, [place] % (Auto) 5.1, Eos % (Auto) 3.6, Baso % (Auto) 0.5, Neut # (Auto) 6.3, Lymph # (Auto) 2.4, [place] # (Auto) 0.5, Eos # (Auto) 0.3, Baso # (Auto) 0.1, PT 10.8, INR 0.96, APTT 23.4, Sodium Cancelled, Potassium Cancelled, Chloride Cancelled, Carbon Dioxide Cancelled, Anion Gap Cancelled, BUN Cancelled, Creatinine Cancelled, Estimated Creat Clear Cancelled, Estimated GFR Cancelled, Est GFR ( Amer) Cancelled, Glucose Cancelled, Calcium Cancelled, Magnesium Cancelled, Total Bilirubin Cancelled, AST Cancelled, ALT Cancelled, Alkaline Phosphatase Cancelled, Troponin I Cancelled, NT-Pro-B Natriuret Pep Cancelled, Total Protein Cancelled, Albumin Cancelled, Globulin Cancelled, Albumin/Globulin Ratio Cancelled, TSH Cancelled, Thyroxine (T4) Cancelled, Salicylates Cancelled, Acetaminophen Cancelled, Plasma/Serum Alcohol < 10 01/30/24 11:45: Urine Color Yellow, Urine Appearance Clear, Urine pH 6.0, Ur Specific [place] 1.015, Urine Protein 1+ A, Urine Glucose (UA) Negative, Urine Ketones Negative, Urine Blood Trace-i, Urine Nitrate Negative, Urine Bilirubin Negative, Urine Urobilinogen 0.2, Ur Leukocyte Esterase Negative, Urine RBC Occasional, Urine WBC None, Ur Squamous Epith Cells None, Urine Bacteria None, U rine Opiates Screen Positive H, Urine Methadone Screen Negative, Ur Barbituates Screen Negative, Ur Phencyclidine Scrn Negative, Ur Amphetamines Screen Negative, U Benzodiazepines Scrn Negative, Urine Cocaine Screen Negative, U Marijuana (THC) Screen Negative 01/30/24 11:55: VBG pH 7.31, VBG pCO2 33.9 L, VBG pO2 58.2 H, VBG HCO3 16.8 L, V BG Total CO2 17.9 L, VBG O2 Saturation 87.5 H, VBG Base Excess -9.4 L, VBG Lactic Acid 2.1 H 01/30/24 11:57: Lactate 1.2 01/30/24 12:12: Sodium 140, Potassium 5.4 H, Chloride 112 H, Carbon Dioxide 17 L , Anion Gap 16.4 H, BUN 53 H, Creatinine 2.40 H, Estimated Creat Clear 17, E stimated GFR 19 L*, Est GFR ( Amer) 24 L, Glucose 113 H, Calcium 10.0, Magnesium 2.1, Total Bilirubin 0.6, AST 29, ALT 17, Alkaline Phosphatase 71, Total Creatine Kinase 89, Troponin I 0.05 H, NT-Pro-B Natriuret Pep 83052 H, Total Protein 8.2, Albumin 4.5, Globulin 3.7 H, Albumin/Globulin Ratio 1.2, Thyroxine (T4) 8.0, Salicylates < 1.0 L, Acetaminophen < 10 L 01/30/24 11:20 01/30/24 12:12 Orders (Tests/Meds): ED MEDICATIONS Generic Name Dose Route Start Last Admin Trade Name Freq PRN Reason Stop Dose Admin Dexamethasone Sodium Phosphate 10 mg 01/30/24 12:54 Dexamethasone 4mg/Ml 1ml Vial IV 01/30/24 12:55 ONCE ONE Calcium Gluconate/Sodium Chloride 2 gm in 100 mls @ 50 mls/hr 01/30/24 12:07 Calcium Gluconate 2,000mg/100ml Nacl Premix IV 01/30/24 14:06 ONCE ONE Nicardipine HCl 25 mg/ Sodium 250 mls @ 50 mls/hr 01/30/24 12:54 Chloride IV 02/29/24 12:53 .Q5H FRANCHESKA Protocol 5 MG/HR Discontinued Medications Generic Name Dose Route Start Last Admin Trade Name Ivan PRN Reason Stop Dose Admin Dextrose 50 ml 01/30/24 12:07 01/30/24 12:12 Dextrose 50% 50ml Syringe (Crash Cart) IVP 01/30/24 12:08 50 ml ONCE ONE Administration Sodium Chloride 1,000 mls @ 999 mls/hr 01/30/24 11:44 01/30/24 11:55 Sod Chlor 0.9% 1000ml Bag IV 01/30/24 12:44 999 mls/hr .Q1H1M ONE Administration Insulin Human Regular 3 unit 01/30/24 12:07 01/30/24 12:12 Insulin Human Regular 100 Units/Ml 10ml Vial 0.05 unit/kg (3 unit) 01/30/24 12:08 3 unit IV Administration ONCE ONE Sodium Zirconium Cyclosilicate 10 gm 01/30/24 12:07 01/30/24 12:12 Lokelma 5gm Packet PO 01/30/24 12:08 10 gm ONCE ONE Administration ORDERS Category Date Time Status CT head/brain wo con Stat Cat Scan 01/30/24 11:44 Ordered XR chest portable Stat Exams 01/30/24 11:44 Ordered Acetaminophen Stat Lab 01/30/24 12:12 Results CK [Creatine Kinase] Stat Lab 01/30/24 12:12 Results Complete Blood Count Auto Diff Stat Lab 01/30/24 11:20 Completed Comprehensive Metabolic Panel Stat Lab 01/30/24 12:12 Results Drug Screen,Urine Stat Lab 01/30/24 11:45 Completed Ethanol [Ethyl Alcohol] Stat Lab 01/30/24 11:20 Completed HIV (1&2) Antibody Rapid Stat Lab 01/30/24 12:04 Received Hep C Ab with Reflex to RNA Stat Lab 01/30/24 12:04 Received Lactic Acid Stat Lab 01/30/24 11:57 Completed Magnesium Stat Lab 01/30/24 12:12 Results NT Pro Brain Natriuretic Pep. Stat Lab 01/30/24 12:12 Results PT INR [Prothrombin Time INR] Stat Lab 01/30/24 11:20 Completed PTT [Activated Partial Thrombo Time] Stat Lab 01/30/24 11:20 Completed Salicylate Stat Lab 01/30/24 12:12 Results T4 (Thyroxine) Stat Lab 01/30/24 12:12 Results Thyroid Stimulating Hormone Stat Lab 01/30/24 12:12 Results Troponin I Q3H Lab 01/30/24 14:45 Ordered Troponin I Q3H Lab 01/30/24 17:45 Ordered Troponin I Stat Lab 01/30/24 12:12 Results Urinalysis and Microscopic Stat Lab 01/30/24 11:45 Completed Blood Culture Stat Micro 01/30/24 12:00 Received Venous Blood Gas Stat RT 01/30/24 11:55 Completed Medical Decision Narrative: This is an 78-year-old female with history of hypertension, hyperlipidemia, CAD without stenting, COPD still smoking, lumbar stenosis, CKD not on dialysis and still producing urine presenting with altered mental status. Patient lives alone. Was found by [employer] today, 01/29, altered, weak. Family states the patient was last known normal yesterday, 01/28 around 11 AM, it was 11:30 AM on arrival here. Patient states that she is hurting in her back, this is not new for her or per patient daughter. No fevers, chills, nausea, vomiting, she does not feel well. History was obtained via conversation with patient and daughter, EMS. On arrival, patient hemodynamically stable, alert, oriented x4, appropriate, GCS 15, moving all extremities spontaneously, pupils equal and reactive to light. Full physical exam performed and significant for chronically ill-appearing female who is in no acute distress. Dry mucous membranes, tachycardia. Lungs are clear to auscultation without focal breath sounds, quiet in the bases. Cardiac exam without murmurs gallops or rubs, no lower extremity edema or pulse deficits. Abdomen is soft, nontender, nondistended. Neurologic exam grossly symmetric. Patient following commands, no facial droop, bilateral upper extremity and lower extremity weakness. Withdrawing from pain in upper extremities and lower extremities symmetrically. Differential includes UTI, pneumonia, sepsis, metabolic abnormality, kidney failure, ACS, NV, CVA, intracranial bleed, rhabdomyolysis, polypharmacy, intoxication, withdrawal, among others. Patient placed on continuous cardiac monitoring and continuous pulse ox with initial blood pressure 171/128, heart rate 122, saturation 97% on room air. Independent interpretation of EKG shows sinus tachycardia [address] or T wave changes concerning for acute ischemia. Patient does have peaked T waves concerning for acute hyperkalemia. [place] is normal. ME 161, QRS 77, QTc 382. Patient was given insulin, dextrose, calcium gluconate, Lokelma for symptomatic management and correction of underlying abnormalities. Workup independently interpreted and significant for nonactionable CBC. Patient's VBG with metabolic acidosis with respiratory compensation normal pH 7.31/bicarb 16.8/CO2 34. Patient's chemistry with hyperkalemia 5.4, BUN 53, creatinine 2.4 (patient's baseline right around 2.2). On independent interpretation of imaging, patient has deep intracerebral hemorrhage concerning for hypertensive hemorrhage with intraventricular extension and surrounding edema. See radiology read for full review of final results. On reevaluation, patient still following commands, able to interact appropriately. 10 mg Decadron IV was given, Cardene drip was started with goal systolic blood pressure less than 140. [facility] contacted and case was discussed, to be transferred graciously under Dr. Monet. [place] disclaimer Much of this encounter note is an electronic plater barrel spoken language to printed text. Electronic plater barrel of the spoken language may permit errors. Although I have reviewed the note, some errors may still exist. Critical Care Critical Care Time Critical Care Time: Yes (Neurology) Attestation: On 01/30/24, the high probability of a clinically significant, sudden or life threatening deterioration of the following system(s) required my full and direct attention, intervention and personal management. The time I documented below is in addition to time spent performing reported procedures but includes the following listed in this critical care notation. Total Time Total Critical Care Time: 60
[2024-01-30 11:58] LABS: Lactate Venous 2.1 mmol/L (0.4-2.0); VBG Base Excess -9.4 mmol/L (-2.4-2.3); VBG HCO3 16.8 mmol/L (23-30); VBG Oxygen Saturation 87.5 % (50-70); VBG PCO2 33.9 mmol/L (35-51); VBG PH 7.31 mmol/L (7.31-7.41); VBG PO2 58.2 mmol/L (28-40); VBG Total CO2 17.9 mmol/L (23-27)
[2024-01-30 12:02] LABS: RBC,Urine Occasional #/hpf (0-3)
[2024-01-30 12:04] LABS: Ethyl Alcohol < 10 mg/dl (0-10)
[2024-01-30 12:07] LABS: Barbiturates Screen,Urine Negative ng/ml (<200); Benzodiazepines Screen,Urine Negative ng/ml (<200)
[2024-01-30 12:08] LABS: Amphetamine/Metha Screen,Urine Negative ng/ml (<1000)
[2024-01-30 12:09] LABS: Cocaine Screen,Urine Negative ng/ml (<300); Methadone Screen,Urine Negative ng/ml (<300)
[2024-01-30 12:10] LABS: Cannabinoid Screen,Urine Negative ng/ml (<50)
[2024-01-30 12:11] LABS: Opiate Screen,Urine Positive ng/ml (<300); Phencyclidine Screen,Urine Negative ng/ml (<25)
[2024-01-30] MEDS: INSULIN HUMAN REGULAR 100 UNITS/ML 10ML VIAL 3 UNIT IV (12:12)
[2024-01-30] MEDS: LOKELMA 5GM PACKET 10 GM PO (12:12)
[2024-01-30] MEDS: DEXTROSE 50% 50ML SYRINGE (CRASH CART) 50 ML IVP (12:12)
[2024-01-30 12:20] LABS: Lactic Acid 1.2 mmol/L (0.7-2.1)
[2024-01-30 12:27] LABS: Albumin Level 4.5 g/dl (3.5-5.0); Chloride 112 mmol/L (98-107)
[2024-01-30 12:28] LABS: Potassium 5.4 mmoL/L (3.5-5.1); Sodium 140 mmol/L (136-145)
[2024-01-30 12:30] LABS: Alanine Aminotransferase 17 U/L (12-78); Albumin/Globulin Ratio 1.2 (1.1-1.8); Alkaline Phosphatase 71 U/L (38-126); Anion Gap 16.4 mEq/L (5-15); Aspartate Amino Transferase 29 U/L (14-36); Bilirubin,Total 0.6 mg/dl (0.2-1.3); Blood Urea Nitrogen 53 mg/dl (7-17); Carbon Dioxide 17 mmol/L (22.0-30.0); Creatinine Clearance Estimated 17 mL/min (50-200); Estimated Glomerular Filt Rate 19 ml/min (>60); GFR (African American) 24 ML/MIN (>60); Globulin 3.7 g/dL (1.3-3.2); Total Protein,Serum 8.2 g/dl (6.3-8.2)
[2024-01-30 12:31] LABS: Creatine Kinase 89 U/L (30-135); Glucose 113 mg/dl (74-100); Magnesium 2.1 mg/dl (1.6-2.3)
[2024-01-30 12:33] LABS: Activated Partial Thrombo Time 23.4 seconds (22.8-30.6); INR 0.96 (0.9-1.1); Prothrombin Time 10.8 seconds (10.1-12.5)
[2024-01-30 12:35] LABS: Acetaminophen < 10 ug/ml (10-30); Salicylate < 1.0 mg/dL (2.0-20.0)
[2024-01-30 12:40] LABS: NT Pro Brain Natriuretic Pep. 21200 pg/mL (0-450)
[2024-01-30 12:43] LABS: Troponin I 0.05 ng/ml (0.00-0.034)
--- NOTE | 2024-01-30 12:43 | PC.NURSE ---
pt gone to RAD via stretcher
--- NOTE | 2024-01-30 12:57 | PC.NURSE ---
Called [facility] per Dr. Buchanan for a transfer for neurology, said they would give us a call back.
[2024-01-30 13:01] LABS: Thyroid Stimulating Hormone 2.77 uIU/mL (0.465-4.68)
[2024-01-30] MEDS: DEXAMETHASONE 4MG/ML 1ML VIAL 10 MG IV (13:10)
[2024-01-30] MEDS: NICARDIPINE HCL 25 MG in 0.9 % SODIUM CHLORIDE 240 ML 50 MG IV (13:10)
--- NOTE | 2024-01-30 13:12 | PC.NURSE ---
report called to gwen at [facility]
--- NOTE | 2024-01-30 13:17 | PC.NURSE ---
radiologist called for report for pt scan, hematoma with intraventricular extension consistent with acute hematoma.
--- NOTE | 2024-01-30 13:19 | PC.NURSE ---
[facility] accepted flight with a 33 minute ETA
--- NOTE | 2024-01-30 14:07 | PC.NURSE ---
report given at bedside for [facility]
[2024-01-30 14:22] LABS: HIV (1&2) Antibody Rapid NONREACTIVE (NONREACTIVE)
[2024-01-30 15:58] LABS: Reflex Lactic Add Lactic Reflex
[2024-01-31 05:27] LABS: HCV Ab Non Reactive (Non Reactive)
== END 2024-01-30 14:19 | disposition short-term general hospital (02) ==
PROVIDERS: Emergency Provider Emergency Medicine; PCP Nurse Practitioner Family
DX: I62.9 Nontraumatic intracranial hemorrhage, unspecified (principal); I61.5 Nontraumatic intracerebral hemorrhage, intraventricular; E87.5 Hyperkalemia; N18.9 Chronic kidney disease, unspecified
CPT/HCPCS: 70450; 80053; 80307; 80320; 80329; 81001; 82550; 82803; 83605; 83735; 83880; 84436; 84443; 84484; 85025; 85610; 85730; 86803; 87040; 87389; 93005; 96365; 96366; 96375; 99291; J1100; J7030

== ENCOUNTER 2024-05-16 14:20 | Outpatient (CLI) | payer MEDICARE, SELFPAY ==
[2024-05-16 18:04] LABS: Basophils % 0.3 % (0.1-2.0); Eosinophils # 0.2 K/mm3 (0.0-0.4); Eosinophils % 2.6 % (0.1-12.0); Hematocrit 34.6 % (37.0-47.0); Hemoglobin 11.1 g/dL (12.2-16.2); Lymphocytes # 2.3 K/mm3 (0.7-4.5); Lymphocytes % 26.6 % (10-50); Mean Corpuscular HGB Conc 32.1 g/dL (31.8-35.4); Mean Corpuscular Hemoglobin 28.7 pg (27.0-31.2); Mean Corpuscular Volume 89.4 fl (81-99); Mean Platelet Volume 10.1 fl (7.4-10.4); Monocytes # 0.6 K/mm3 (0.1-1.0); Monocytes % 6.6 % (1.7-9.3); Neutrophils # 5.5 K/mm3 (1.8-7.8); Neutrophils % 63.6 % (37.0-80.0); Platelet Count 342 K/mm3 (142-424); Red Blood Count 3.87 M/mm3 (4.20-5.40); Red Cell Distribution Width 14.1 % (11.5-17.5); White Blood Count 8.7 K/mm3 (4.8-10.8)
[2024-05-16 19:26] LABS: Alanine Aminotransferase 19 U/L (12-78); Albumin Level 4.6 g/dl (3.5-5.0); Albumin/Globulin Ratio 1.6 (1.1-1.8); Alkaline Phosphatase 62 U/L (38-126); Anion Gap 20.2 mEq/L (5-15); Aspartate Amino Transferase 30 U/L (14-36); Bilirubin,Total 0.4 mg/dl (0.2-1.3); Blood Urea Nitrogen 46 mg/dl (7-17); Calcium 9.2 mg/dl (8.4-10.2); Carbon Dioxide 18 mmol/L (22.0-30.0); Chloride 105 mmol/L (98-107); Estimated Glomerular Filt Rate 19 ml/min (>60); GFR (African American) 24 ML/MIN (>60); Globulin 2.8 g/dL (1.3-3.2); Glucose 81 mg/dl (74-100); Potassium 5.2 mmoL/L (3.5-5.1); Sodium 138 mmol/L (136-145); Total Protein,Serum 7.4 g/dl (6.3-8.2)
== END 2024-05-16 23:59 | disposition home or self-care (01) ==
LOC: LAB.DROPOF 05-17 08:34
PROVIDERS: PCP Family Medicine; Visit Provider Family Medicine
DX: N18.9 Chronic kidney disease, unspecified (principal); D64.9 Anemia, unspecified
CPT/HCPCS: 80053; 85025

== ENCOUNTER 2024-05-23 14:57 | Outpatient (CLI) | payer MEDICARE, SELFPAY ==
[2024-05-23 19:33] LABS: Anion Gap 25.4 mEq/L (5-15); Blood Urea Nitrogen 52 mg/dl (7-17); Calcium 9.9 mg/dl (8.4-10.2); Carbon Dioxide 17 mmol/L (22.0-30.0); Chloride 102 mmol/L (98-107); Estimated Glomerular Filt Rate 16 ml/min (>60); GFR (African American) 19 ML/MIN (>60); Glucose 92 mg/dl (74-100); Potassium 5.4 mmoL/L (3.5-5.1); Sodium 139 mmol/L (136-145)
== END 2024-05-23 23:59 | disposition home or self-care (01) ==
LOC: LAB.DROPOF 05-24 10:41
PROVIDERS: PCP Family Medicine; Visit Provider Family Medicine
DX: E87.6 Hypokalemia (principal)
CPT/HCPCS: 80048

== ENCOUNTER 2024-07-07 14:50 | Outpatient (CLI) | payer MEDICARE, SELFPAY ==
[2024-07-07 19:50] LABS: Basophils % 0.3 % (0.1-2.0); Eosinophils # 0.3 K/mm3 (0.0-0.4); Eosinophils % 2.7 % (0.1-12.0); Hematocrit 35.3 % (37.0-47.0); Hemoglobin 11.2 g/dL (12.2-16.2); Lymphocytes # 2.6 K/mm3 (0.7-4.5); Lymphocytes % 24.3 % (10-50); Mean Corpuscular HGB Conc 31.7 g/dL (31.8-35.4); Mean Corpuscular Hemoglobin 29.1 pg (27.0-31.2); Mean Corpuscular Volume 91.7 fl (81-99); Mean Platelet Volume 9.3 fl (7.4-10.4); Monocytes # 0.7 K/mm3 (0.1-1.0); Monocytes % 6.8 % (1.7-9.3); Neutrophils % 65.6 % (37.0-80.0); Platelet Count 331 K/mm3 (142-424); Red Blood Count 3.85 M/mm3 (4.20-5.40); Red Cell Distribution Width 15.9 % (11.5-17.5); White Blood Count 10.7 K/mm3 (4.8-10.8)
[2024-07-07 20:47] LABS: Chloride 107 mmol/L (98-107); Potassium 5.1 mmoL/L (3.5-5.1); Sodium 139 mmol/L (136-145)
[2024-07-07 20:50] LABS: Anion Gap 17.1 mEq/L (5-15); Blood Urea Nitrogen 42 mg/dl (7-17); Carbon Dioxide 20 mmol/L (22.0-30.0); Estimated Glomerular Filt Rate 19 ml/min (>60); GFR (African American) 24 ML/MIN (>60)
[2024-07-07 20:51] LABS: Calcium 9.5 mg/dl (8.4-10.2); Glucose 91 mg/dl (74-100)
== END 2024-07-07 23:59 | disposition home or self-care (01) ==
LOC: LAB.DROPOF 07-08 14:28
PROVIDERS: PCP Family Medicine; Visit Provider Family Medicine
DX: N18.9 Chronic kidney disease, unspecified (principal)
CPT/HCPCS: 80048; 85025

== ENCOUNTER 2024-08-29 14:59 | Outpatient (CLI) | payer MEDICARE, MEDICAID, SELFPAY ==
[2024-08-29 19:22] LABS: Anion Gap 20.9 mEq/L (5-15); Blood Urea Nitrogen 46 mg/dl (7-17); Calcium 9.4 mg/dl (8.4-10.2); Carbon Dioxide 16 mmol/L (22.0-30.0); Chloride 107 mmol/L (98-107); Estimated Glomerular Filt Rate 19 ml/min (>60); GFR (African American) 22 ML/MIN (>60); Glucose 86 mg/dl (74-100); Potassium 4.9 mmoL/L (3.5-5.1); Sodium 139 mmol/L (136-145)
== END 2024-08-29 23:59 | disposition home or self-care (01) ==
LOC: LAB.DROPOF 09-01 15:00
PROVIDERS: PCP Family Medicine; Visit Provider Family Medicine
DX: N18.9 Chronic kidney disease, unspecified (principal)
CPT/HCPCS: 80048

== ENCOUNTER 2024-10-30 14:29 | Outpatient (CLI) | payer MEDICARE, MEDICAID, SELFPAY ==
[2024-10-30 20:36] LABS: Chloride 108 mmol/L (98-107)
[2024-10-30 20:37] LABS: Potassium 4.1 mmoL/L (3.5-5.1); Sodium 140 mmol/L (136-145)
[2024-10-30 20:39] LABS: Blood Urea Nitrogen 40 mg/dl (7-17); Creatinine,Serum 2.90 mg/dl (0.52-1.04); Estimated Glomerular Filt Rate 16 ml/min (>60); GFR (African American) 19 ML/MIN (>60)
[2024-10-30 20:40] LABS: Anion Gap 21.1 mEq/L (5-15); Calcium 9.1 mg/dl (8.4-10.2); Carbon Dioxide 15 mmol/L (22.0-30.0); Glucose 85 mg/dl (74-100)
--- OUTSIDE RECORDS SUMMARY | 2024-10-31 10:15 | XMS_ITS ---
Author Organization [facility] Support Name Relationship Address Phone Pat Kenney Emergency Contact [address] [place], [place] [id number] Bakari Golden Emergency Contact [address] [place], [place] [phone] Bernadette Golden Guarantor [address] [place], [place] [phone] Bernadette Golden Agent [address] [place], [place] [id number] Mental Status Section Date Assessment Total Score Description 08/09/2015 BIMS 14 cognitively int act PHQ-9 00 Problems Problem # Description Date of onset Resolved Date Code CodeSystem Concern Status 1 AFTERCARE FOLLOWING JOINT REPLACEMENT SURGERY 08/05/[address] active 2 COGNITIVE COMMUNICATION DEFICIT 08/05/[address] active 3 DIFFICULTY IN WALKING, NOT ELSEWHERE CLASSIFIED 08/05/[address] active 4 HISTORY OF FALLING 08/05/[address] active 5 MUSCLE WEAKNESS (GENERALIZED) 08/05/[address] active 6 TOBACCO USE 08/05/2015 Z72.0 ICD-10-CM active 7 UNSPECIFIED FRACTURE OF HEAD OF LEFT FEMUR, SEQUELA 08/05/[address] active Reason for Referral No Reasons for Referral Entered Social History Social History Observation Description Start Date End Date Code Code System Current Smoking Status Tobacco smoking consumption unknown 059181208 SNOMED CT Sex Assigned At Female 1945 79207-0 LOINC Gender Identity Vital Signs Code Code System Vitals Name Values and Units Timing Information 89240-6 LOINC Weight Wwpgo=445.7 Units=Lbs
--- OUTSIDE RECORDS SUMMARY | 2024-10-31 10:15 | XMS_ITS | Clinical Summary ---
Author Organization [facility] Address [address] [place] [address] Care Team Providers Care Monitor And Storage Bin Tender Name Role Phone Wilfredo Jacobs APRN Primary Care Provider [phone] Allergies No known active allergies Medications Fluticasone Furoate-Vilanterol 100-25 MCG/ACT aerosol powder Inhale 1 puff 1 (one) time each day. Active acetaminophen (Tylenol) 500 MG tablet Take 1,000 mg by mouth every 6 (six) hours if needed. Active ascorbic acid (Vitamin C) 250 MG tablet Take 250 mg by mouth 2 (two) times a day. Active aspirin 81 MG EC tablet Take 81 mg by mouth 1 (one) time each day. Active atorvastatin (Lipitor) 80 MG tablet Take 1 tablet (80 mg) by mouth 1 (one) time each day. Active folic acid (Folvite) 1 MG tablet Take 1 tablet (1 mg) by mouth 1 (one) time each day. Active iron polysaccharides (Nu-Iron,Niferex) 150 MG capsule Take 150 mg by mouth 2 (two) times a day. Active Multiple Vitamin (multivitamin) capsule Take 1 capsule by mouth 1 (one) time each day. Active thiamine (Vitamin B-1) 100 MG tablet Take 100 mg by mouth 1 (one) time each day. Active Oyster Shell Calcium 500 MG tablet Take 500 mg by mouth 2 (two) times a day with meals. Active senna (Senokot) 8.6 MG tablet Take 1 tablet by mouth 1 (one) time each day. Active HYDROcodone-acetamin ophen (Quinnesec) 5-325 MG tablet Take 1 tablet (5 mg of hydrocodone ) by mouth 3 (three) times a day if needed. Active rOPINIRole (Requip) 2 MG tablet Take 1 tablet (2 mg) by mouth 2 (two) times a day. Active amLODIPine (Norvasc) 10 MG tablet Take 1 tablet (10 mg) by mouth 1 (one) time each day. 02/03/20 Active carvedilol (Coreg) 12.5 MG tablet Take 1 tablet (12.5 mg) by mouth 2 (two) times a day. Active Active Problems Problem Noted Date Diagnosed Date ICH (intracerebral hemorrhage) 01/30/2024 Overview (01/30/2024): Likely secondary to hypertension; etiology per primary team NS consulted Repeat CT scan of head pending Cardene infusion to maintain SBP less than 140 Sodium goal 145-150 for cerebral edema Keep HOB elevated Hold all AP/AC/DVT ppx NIHSS and neuro examinations per ICU protocol Will continue ongoing stroke education Intracranial hemorrhage 01/30/2024 Electrolyte abnormality 01/30/2024 Overview (01/30/2024): Replace per ICU protocol TIERRA (acute kidney injury) 01/30/2024 Overview (01/31/2024): Baseline Cr unknown Creatinine, Plasma (mg/dL) Date/Time Value 01/31/2024 0054 2.23 (H) Consider renal U/S as appropriate Monitor renal function daily Avoid nephrotoxins, avoid NSAIDs, renally dose medications CKD (chronic kidney disease) stage 4, GFR 15-29 ml/min 01/01/2019 Resolved Problems Problem Noted Date Diagnosed Date Resolved Date Feeding difficulty in adult 01/31/2024 01/31/2024 Overview (01/31/2024): STAFF RN assessment pending DHT if not appropriate for swallow eval Immunizations Immunization Administration Dates Next Due Influenza, Unspecified 01/07/2022,03/15/2021 Influenza, injectable, quadrivalent 01/24/2017,1 Influenza, seasonal, injectable 03/14/2018,01/28 Influenza, seasonal, injecta ble, preservative free 03/20/2016 Influenza, trivalent, adjuvanted 03/30/2020,03/17,01/23/2017 Pneumococcal Conjugate PCV 13 04/17/1999 Pneumococcal Polysaccharide PPV23 05/17/2000 Social History Tobacco Use Types Packs/Day Years Used Date Smoking Tobacco: Every Day Cigarettes Smokeless Tobacco: Never Tobacco Cessation:Ready to Q uit: Not Asked; Counseling Given: Not Answered Alcohol Use Standard Drinks/Week Comments Yes 0 (1 standard drink = 0.6 oz pur e alcohol) Humiliation, Afraid, Rape, and Kick questionnair e Answer Date Recorded Within the last year, have y ou been afraid of your partner or ex-partner? No 02/04/2024 Within the last year, have y ou been humiliated or emotionally abused in other ways by your partner or ex-partner? No Within the last year, have y ou been kicked, hit, slapped, or otherwise physically hurt by your partner or ex-partner? No 02/04/2024 Within the last year, have y ou been raped or forced to have any kind of sexual activity by your partner or ex-partner? No 02/04/2024 Hunger Vital Sign Answer Date Recorded Within the past 12 months, y ou worried that your food would run out before you got the money to buy more. Never true 02/04/20 24 Within the past 12 months, t he food you bought just didn't last and you didn't have money to get more. Never true 02/04/2024 PRAPARE - Transportation Answer Date Re corded In the past 12 months, has l ack of transportation kept you from medical appointments or from getting medications? No 01/15 In the past 12 months, has l ack of transportation kept you from meetings, work, or from getting things needed for daily living? No 02/04/2024 Housing Stability Vital Sign Answer Jeremie e Recorded In the last 12 months, was t here a time when you were not able to pay the mortgage or rent on time? No 02/04/2024 In the last 12 months, how many places have you lived? 1 02/04/2024 In the last 12 months, was t here a time when you did not have a steady place to sleep or slept in a intermediate (including now)? No 02/04/2024 CAGE ASSESSMENT Answer Date Recorded Due to the following: Medical status 01/30/2024 Cage max number of drinks Not on file 2023 Cage Beverages a week Not on file 01/30/2024 Cage Questionnaire cut down Not on file 01/14 Cage questionnaire annoyed Not on file 01/29 Cage questionnaire guilty Not on file 2023 Cage questionnaire eye institute scientist Not on file Cage Overall score Not on file 01/30/2024 Utilities Answer Date Recorded In the past 12 months has th e electric, gas, oil, or water company threatened to shut off services in your home? No 02/04/2024 Comments Unknown Sex and Gender Information Value Date Recorded Sex Assigned at Not on file Legal Sex Female 7:49 PM EDT Gender Identity Not on file Sexual Orientation Not on file Last Filed Vital Signs Vital Sign Reading Time Taken Comments Blood Pressure 135/77 02/07/2024 11:05 AM EDT Pulse 85 02/07/2024 11:05 AM EDT Temperature 36.6 C (97.9 F) 02/07/2024 11:05 AM EDT Respiratory Rate 23 02/07/2024 11:05 AM EDT Oxygen Saturation 93% 02/07/2024 11:05 AM EDT Inhaled Oxygen Concentration - - Weight 54.6 kg (120 lb 5.9 oz) 02/06/2024 11:00 AM EDT Height 157 cm (5' 1.81 ) 02/06/2024 11:00 AM EDT Body Mass Index 22.15 02/06/2024 11:00 AM EDT Plan of Treatment Health Maintenance Due Date Last Done Comments [facility]-Bone Density Scan 1945 [facility]-Depression Screening 1945 [facility]-Medicare Annual Wellness (AWV) 1945 [facility]-/Child/Adol SDOH Screenings 1945 [facility]-DTaP,Tdap,and Td Vaccines (1 - Tdap) 10/15/1962 [facility]-Zoster Vaccines (1 of 2) 10/15/1993 [facility]-Pneumococcal Vaccine: 50+ Years (3 of 3 - PCV20 or PCV21) 05/17/2005 05/17/2000, 04/17/1999 [facility]-RSV Vaccine: 60+ Years or (1 - 1-dose 75+ series) 10/15/2018 [id number] Vaccine ( season) 2023 02/22/2022, 04/20/2021, 09/29/2020, Additional history exists [facility]- SDOH Screenings 08/04/2024 [facility]-Adult SDOH Screenings 08/04/2024 02/04/2024 [facility]-Influenza Vaccine (#1) 12/15/202401/24, 02/21/2023, 01/07/2022, Additional history exists HPV Vaccines Aged Out No longer eligi ble based on patient's age to complete this topic [facility]-HIB Vaccines Aged Out No longer e ligible based on patient's age to complete this topic [facility]-Hepatitis A Vaccines Aged Out No longer eligible based on patient's age to complete this topic [facility]-IPV Vaccines Aged Out No longer e ligible based on patient's age to complete this topic [facility]-Rotavirus Vaccines Aged Out No lo nger eligible based on patient's age to complete this topic Insurance FRANCISCO Colby [id number] KAYE MEDICARE Care Teams Monitor And Storage Bin Tender Relationship Specialty Start Date End Date Wilfredo Jacobs APRN [address] [place] [id number] PCP - General 01/01/24
== END 2024-10-30 23:59 | disposition home or self-care (01) ==
LOC: LAB.DROPOF 10-31 10:10
PROVIDERS: PCP Family Medicine; Visit Provider Family Medicine
DX: N18.9 Chronic kidney disease, unspecified (principal)
CPT/HCPCS: 80048

== ENCOUNTER 2025-02-27 08:11 | Outpatient (CLI) | payer MEDICARE, MEDICAID, SELFPAY ==
--- OUTSIDE RECORDS SUMMARY | 2024-12-30 19:00 | XMS_ITS | Clinical Summary ---
Author Organization Unknown Care Team Providers Care Quality Assurance Assistant Name Role Phone KENYA SEYMOUR, ADDI Unavailable Unavailable KALIE PT, TAWANA Unavailable Unavailable JEREMY STORAGE WHARFAGE CLERK, YOKASTA Unavailable Unavailable TOÑA DENG, KASSI Unavailable Unavailable AYALA OT, TD Unavailable Unavailable Payers Payer Name Policy Type Policy Number Effective Date Expira tion Date SHANELLE.AUTH [id number] [facility].AUTH [id number] Problems Condition Name Condition Details Condition Category Status Onset Date Resolution Date Last Treatment Date Treating Clinician Comments OTHER CHRONIC PAIN Active 11-03 00:00: 00 DORSALGIA, UNSPECIFIED Active 11-03 00:00: 00 OTHER MALAISE Active 11-03 00:00: 00 SPINAL STENOSIS, 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 Active 11-03 00:00: 00 SPONDYLOSIS W/O MYELOPATHY OR RADICULOPATH Y, LUMBAR REGION Active 11-03 00:00: 00 HYPERTENSIVE CHRONIC KIDNEY DISEASE W STG 1-4/UNSP CHR KDNY Active 04-16 00:00: 00 CHRONIC KIDNEY DISEASE, UNSPECIFIED Active 04-16 00:00: 00 NICOTINE DEPENDENCE, CIGARETTES, UNCOMPLICATE D Active 04-16 00:00: 00 OLD MYOCARDIAL INFARCTION Active 04-16 00:00: 00 VITAMIN D DEFICIENCY, UNSPECIFIED Active 04-16 00:00: 00 OTHER ABNORMALITIE S OF GAIT AND MOBILITY Active 11-03 00:00: 00 PRSNL HX OF TIA (TIA), AND CEREB INFRC W/O RESID DEFICITS Active 04-16 00:00: 00 HISTORY OF FALLING Active 04-16 00:00: 00 Allergies, Adverse Reactions, Alerts Allergy Name Allergy Type Status Severity Reaction(s) Onset Date Inactive Date Treating Clinician Comments NO KNOWN ALLERGIES Propensity to adverse reactions Active 11-05 12:52: 28 Medications Ordered Medication Name Filled Medication Name Start Date Stop Date Current Medication? Ordering Clinician Indication Dosage Frequency Signature (SIG) Comments Components megestrol 40 mg tablet 11-02 00:00: 00 Yes [id number] APPETITE 0.5 tablet 3 TIMES DAILY 0.5 tablet 3 TIMES DAILY (route: oral) Med Classific ation: Antineopl astics hydrocodone 5 mg-acetamin ophen 325 mg tablet 11-01 00:00: 00 Yes [id number] PAIN 1 tablet 3 TIMES DAILY 1 tablet 3 TIMES DAILY (route: oral) Med Classific ation: Analgesic , Anti-infl ammatory or Antipyret ic ropinirole 2 mg tablet 11-01 00:00: 00 Yes [id number] RLS 1 tablet 2 TIMES DAILY 1 tablet 2 TIMES DAILY (route: oral) Med Classific ation: Central Nervous System Agents amlodipine 5 mg tablet 10-16 00:00: 00 Yes [id number] HTN 1 tablet DAILY 1 tablet DAILY (route: oral) Med Classific ation: Cardiovas cular Therapy Agents aspirin 81 mg tablet 04-16 00:00: 00 Yes [id number] CARDIOVASCU LAR 1 tablet DAILY 1 tablet DAILY (route: oral) Med Classific ation: Hematolog ical Agents atorvastati n 80 mg tablet 04-16 00:00: 00 Yes [id number] CHOLESTEROL 1 tablet DAILY 1 tablet DAILY (route: oral) Med Classific ation: Cardiovas cular Therapy Agents carvedilol 12.5 mg tablet 04-16 00:00: 00 Yes [id number] HTN 1 tablet 2 TIMES DAILY 1 tablet 2 TIMES DAILY (route: oral) Med Classific ation: Cardiovas cular Therapy Agents melatonin 3 mg capsule 04-16 00:00: 00 Yes [id number] SLEEP 1 capsule DAILY 1 capsule DAILY (route: oral) Med Classific ation: Central Nervous System Agents nortriptyli ne 25 mg capsule 09-22 00:00: 00 Yes [id number] DEPRESSION 1 capsule BEDTIME 1 capsule BEDTIME (route: oral) Med Classific ation: Central Nervous System Agents Poly-Iron 150 mg iron capsule 1- 00:00: 00 Yes [id number] SUPPLEMENT 1 capsule 2 TIMES DAILY 1 capsule 2 TIMES DAILY (route: oral) Med Classific ation: Electroly te Balance-N utritiona l Products Vital Signs Vital Name Observation Time Observation Value Commen ts Temperature 2024-12-31 15:58:00.000 98.2 [degF] Temperature 2024-12-26 11:40:00.000 98.6 [degF] Temperature 2024-12-18 11:04:00.000 97.8 [degF] Temperature 2024-12-16 12:49:00.000 98 [degF] Temperature 2024-12-02 14:05:00.000 98.6 [degF] Temperature 2024-11-27 13:54:00.000 97 [degF] Temperature 2024-11-25 14:06:00.000 98 [degF] Temperature 2024-11-19 13:39:00.000 98 [degF] Temperature 2024-11-17 13:09:00.000 97 [degF] Temperature 2024-11-14 15:41:00.000 97.6 [degF] Temperature 2024-11-05 13:04:00.000 97.7 [degF] BMI (%) 2024-11-05 13:04:00.000 18 kg/m2 Height 2024-11-05 13:04:00.000 63 [in_us] Pulse 2024-12-31 15:58:00.000 75 /min Pulse 2024-12-26 11:40:00.000 70 /min Pulse 2024-12-18 11:04:00.000 94 /min Pulse 2024-12-16 12:49:00.000 85 /min Pulse 2024-12-02 14:05:00.000 99 /min Pulse 2024-11-27 13:54:00.000 87 /min Pulse 2024-11-25 14:06:00.000 98 /min Pulse 2024-11-19 13:39:00.000 61 /min Pulse 2024-11-17 13:09:00.000 71 /min Pulse 2024-11-14 15:41:00.000 99 /min Pulse 2024-11-12 12:04:00.000 78 /min Pulse 2024-11-05 13:04:00.000 82 /min O2 Saturation (%) 2024-12-26 11:40:00.000 99 % O2 Saturation (%) 2024-12-18 11:04:00.000 96 % O2 Saturation (%) 2024-12-16 12:49:00.000 95 % O2 Saturation (%) 2024-11-27 13:54:00.000 98 % O2 Saturation (%) 2024-11-25 14:06:00.000 98 % O2 Saturation (%) 2024-11-19 13:39:00.000 96 % O2 Saturation (%) 2024-11-17 13:09:00.000 97 % O2 Saturation (%) 2024-11-12 12:04:00.000 96 % O2 Saturation (%) 2024-11-05 13:04:00.000 93 % Respirations 2024-12-31 15:58:00.000 16 /min Respirations 2024-12-26 11:40:00.000 18 /min Respirations 2024-12-18 11:04:00.000 18 /min Respirations 2024-12-16 12:49:00.000 18 /min Respirations 2024-12-02 14:05:00.000 18 /min Respirations 2024-11-27 13:54:00.000 18 /min Respirations 2024-11-25 14:06:00.000 18 /min Respirations 2024-11-19 13:39:00.000 18 /min Respirations 2024-11-17 13:09:00.000 18 /min Respirations 2024-11-14 15:41:00.000 18 /min Respirations 2024-11-12 12:04:00.000 18 /min Respirations 2024-11-05 13:04:00.000 18 /min Weight (lbs) 2024-11-05 13:04:00.000 103 [lb_av] Systolic Blood Pressure 2024-12-31 15:58:00.000 126 mm [Hg] Systolic Blood Pressure 2024-12-26 11:40:00.000 122 mm [Hg] Systolic Blood Pressure 2024-12-18 11:04:00.000 120 mm [Hg] Systolic Blood Pressure 2024-12-16 12:49:00.000 130 mm [Hg] Systolic Blood Pressure 2024-12-02 14:05:00.000 113 mm [Hg] Systolic Blood Pressure 2024-11-27 13:54:00.000 110 mm [Hg] Systolic Blood Pressure 2024-11-25 14:06:00.000 138 mm [Hg] Systolic Blood Pressure 2024-11-19 13:39:00.000 110 mm [Hg] Systolic Blood Pressure 2024-11-17 13:12:00.000 118 mm [Hg] Systolic Blood Pressure 2024-11-14 15:41:00.000 127 mm [Hg] Systolic Blood Pressure 2024-11-12 12:04:00.000 108 mm [Hg] Systolic Blood Pressure 2024-11-05 13:04:00.000 110 mm [Hg] Diastolic Blood Pressure 2024-12-31 15:58:00.000 68 mm [Hg] Diastolic Blood Pressure 2024-12-26 11:40:00.000 64 mm [Hg] Diastolic Blood Pressure 2024-12-18 11:04:00.000 72 mm [Hg] Diastolic Blood Pressure 2024-12-16 12:49:00.000 90 mm [Hg] Diastolic Blood Pressure 2024-12-02 14:05:00.000 70 mm [Hg] Diastolic Blood Pressure 2024-11-27 13:54:00.000 60 mm [Hg] Diastolic Blood Pressure 2024-11-25 14:06:00.000 82 mm [Hg] Diastolic Blood Pressure 2024-11-19 13:39:00.000 72 mm [Hg] Diastolic Blood Pressure 2024-11-17 13:12:00.000 78 mm [Hg] Diastolic Blood Pressure 2024-11-14 15:41:00.000 63 mm [Hg] Diastolic Blood Pressure 2024-11-12 12:04:00.000 82 mm [Hg] Diastolic Blood Pressure 2024-11-05 13:04:00.000 80 mm [Hg] Plan of Treatment Planned Activity Planned Date Details Comments Future Scheduled Test AGENCY MAY PERFORM A RESUMPTION OF CARE VISIT FOLLOWING ANY HOSPITAL ADMISSION. PT TO EVALUATE, OBSERVE / ASSESS, AND MONITOR, STORAGE WHARFAGE CLERK TO OBSERVE AND MONITOR, PROVIDE SKILLED THERAPEUTIC INTERVENTION, ACTIVITY, EDUCATION, AND TRAINING TO ADDRESS; [code = AGENCY MAY PERFORM A RESUMPTION OF CARE VISIT FOLLOWING ANY HOSPITAL ADMISSION. PT TO EVALUATE, OBSERVE / ASSESS, AND MONITOR, STORAGE WHARFAGE CLERK TO OBSERVE AND MONITOR, PROVIDE SKILLED THERAPEUTIC INTERVENTION, ACTIVITY, EDUCATION, AND TRAINING TO ADDRESS;] Future Scheduled Test BED MOBILI TY (PT/STORAGE WHARFAGE CLERK) [code = BED MOBILITY (PT/STORAGE WHARFAGE CLERK)] Future Scheduled Test SIT TO/FRO M STAND TRANSFERS (PT/STORAGE WHARFAGE CLERK) [code = SIT TO/FROM STAND TRANSFERS (PT/STORAGE WHARFAGE CLERK)] Future Scheduled Test PT/STORAGE WHARFAGE CLERK TO PROVIDE GAIT TRAINING FOR IMPROVED MOBILITY AND /OR TO NORMALIZE GAIT PATTERN [code = PT/STORAGE WHARFAGE CLERK TO PROVIDE GAIT TRAINING FOR IMPROVED MOBILITY AND /OR TO NORMALIZE GAIT PATTERN] Future Scheduled Test NEUROMUSCU LAR RE-EDUCATION / BALANCE / POSTURAL CONTROL (PT) [code = NEUROMUSCULAR RE-EDUCATION / BALANCE / POSTURAL CONTROL (PT)] Future Scheduled Test THERAPEUTI C EXERCISES AND ESTABLISHING A HOME EXERCISE PROGRAM (PT/STORAGE WHARFAGE CLERK) [code = THERAPEUTIC EXERCISES AND ESTABLISHING A HOME EXERCISE PROGRAM (PT/STORAGE WHARFAGE CLERK)] Future Scheduled Test OCCUPATION AL THERAPIST TO EVALUATE FOR BUE WEAKNESS, ADLS/IADLS [code = OCCUPATIONAL THERAPIST TO EVALUATE FOR BUE WEAKNESS, ADLS/IADLS] Future Scheduled Test MEDICAL SO CIAL WORKER TO EVALUATE FOR COMMUNITY^CAREGIVER ASSISTANCE [code = RADIATION PHYSICIST TO EVALUATE FOR COMMUNITY^CAREGIVER ASSISTANCE] Future Scheduled Test OCCUPATION AL THERAPY EVALUATION PERFORMED. NO ADDITIONAL VISITS REQUIRED. PROVIDED SKILLED INTERVENTION INCLUDING: THERAPIST EDUCATED PATIENT ON UE HEP EXERCISES TO MAINTAIN STRENGTH/FLEXIBILITY OF BUE'S. THERAPIST REINFORCED WHEELCHAIR SAFETY, ESPECIALLY LOCKING BRAKES DURING TRANSFERS. THERAPIST REINFORCED SAFE TRANSFER TECHNIQUE. THERAPIST REINFORCED CALL US FIRST PROTOCOL AND THE NUMBERS TO USE TO CONTACT. PATIENT VERBALIZED UNDERSTANDING OF ALL INSTRUCTION PROVIDED DURING OT EVALUATION. [code = OCCUPATIONAL THERAPY EVALUATION PERFORMED. NO ADDITIONAL VISITS REQUIRED. PROVIDED SKILLED INTERVENTION INCLUDING: THERAPIST EDUCATED PATIENT ON UE HEP EXERCISES TO MAINTAIN STRENGTH/FLEXIBILITY OF BUE'S. THERAPIST REINFORCED WHEELCHAIR SAFETY, ESPECIALLY LOCKING BRAKES DURING TRANSFERS. THERAPIST REINFORCED SAFE TRANSFER TECHNIQUE. THERAPIST REINFORCED CALL US FIRST PROTOCOL AND THE NUMBERS TO USE TO CONTACT. PATIENT VERBALIZED UNDERSTANDING OF ALL INSTRUCTION PROVIDED DURING OT EVALUATION.] Future Scheduled Test MEDICAL SO CIAL SERVICES FOR COMMUNITY RESOURCE PLANNING. [code = MEDICAL MANAGER DIVERSITY FOR COMMUNITY RESOURCE PLANNING.] Goal 2024-12-31 Patient Goal - I D LIKE TO WALK AGAIN, NOT FALL Goal Provider Goal - Goal Provider Goal - PT STG: PATIENT WILL DEMONSTRATE IMPROVED BED MOBILITY TO REDUCE THE RISK OF SKIN INTEGRITY ISSUES AND/OR PAIN FROM MOD TO CGA WITHIN 4 WEEKS PT LTG: PATIENT WILL DEMONSTRATE IMPROVED BED MOBILITY TO REDUCE THE RISK OF SKIN INTEGRITY ISSUES AND/OR PAIN FROM MOD TO IND WITHIN 8 WEEKS Goal Provider Goal - PT STG: PATIENT WILL DEMONSTRATE IMPROVED ABILITY TO PERFORM SIT TO/FROM STAND TRANSFERS TO REDUCE THE RISK OF SKIN BREAKDOWN AND REDUCE FALL RISK FROM MOD A TO CGA WITHIN 4 WEEKS PT LTG: PATIENT WILL DEMONSTRATE IMPROVED ABILITY TO PERFORM SIT TO/FROM STAND TRANSFERS TO REDUCE THE RISK OF SKIN BREAKDOWN AND REDUCE FALL RISK FROM MOD A TO IND WITHIN 8 WEEKS Goal Provider Goal - PT STG: PATIENT WILL DEMONSTRATE REDUCED GAIT DEVIATIONS TO REDUCE THE RISK FOR FALLING AND MINIMIZE STRAIN ON KNEES/HIPS AND BACK EVIDENCED BY IMPROVED HEEL STRIKE / STANCE PHASE / SWING PHASE USING WALKER AND MIN/CGA TO WALK SAFELY WITHIN HOME WITHIN 4 WEEKS PT LTG: PATIENT WILL DEMONSTRATE REDUCED GAIT DEVIATIONS TO REDUCE THE RISK FOR FALLING AND MINIMIZE STRAIN ON KNEES/HIPS AND BACK EVIDENCED BY IMPROVED HEEL STRIKE / STANCE PHASE / SWING PHASE USING WALKER, ON ALL SURFACES, INDEPENDENT/SUPERVISION ONLY WITHIN 8 WEEKS Goal Provider Goal - PT STG: PATIENT WILL DEMONSTRATE REDUCED FALL RISK EVIDENCED BY TUG TEST (CUT SCORE >11 SECONDS INDICATES INCREASED FALL RISK) IMPROVING FROM 53 TO 45 WITHIN 4 WEEKS PT LTG: PATIENT WILL DEMONSTRATE REDUCED FALL RISK EVIDENCED BY TUG TEST (CUT SCORE >11 SECONDS INDICATES INCREASED FALL RISK) IMPROVING FROM 53 TO 30 WITHIN 8 WEEKS Goal Provider Goal - PT STG: PATIENT WILL DEMONSTRATE IMPROVED FUNCTIONAL STRENGTH EVIDENCED BY FIVE TIMES SIT TO STAND TEST (CUT SCORE >12 SECONDS INDICATES AN INCREASED FALL RISK) IMPROVING FROM 48 TO 30 WITHIN 4 WEEKS IN ORDER TO PERFORM SAFE STS/CHAIR TRANSFERS PT LTG: PATIENT WILL DEMONSTRATE IMPROVED FUNCTIONAL STRENGTH EVIDENCED BY FIVE TIMES SIT TO STAND TEST (CUT SCORE >12 SECONDS INDICATES AN INCREASED FALL RISK) IMPROVING FROM 48 TO 20 WITHIN 8 WEEKS IN ORDER TO PERFORM SAFE STS/CHAIR TRANSFERS Goal Provider Goal - Goal Provider Goal - Goal Provider Goal - PATIENT / CAREGIVER WITHIN 1 VISIT WILL BE ABLE TO VERBALIZE / DEMONSTRATE UNDERSTANDING OF ALL INSTRUCTION PROVIDED DURING OT EVALUATION. GOAL MET. Goal Provider Goal - PATIENT WILL DEMONSTRATE EFFECTIVE COMMUNITY RESOURCE PLANNING, EVIDENCED BY ACCEPTANCE OF ASSISTANCE FROM THOSE SERVICES FOR WHICH THEY ARE ELIGIBLE, EXTENDING THE PERIOD OF INDEPENDENCE IN THE HOME. Reason for Visit INDEPENDENT WITH USE OF ASSISTIVE DEVICE Encounters Start Date/Time End Date/Time Encounter Type Admission Type Attending [facility] Care Department Encounter ID Discharge Date Discharge Status Discharge Condition Discharge Reason Percent Goals Met 2024-11-05 00:00:00 2024-12-31 00:00:00 Outpatient NEW ADMISSION [facility] [id number] 2024-12-31 00:00:00 DISCHARGE TO HOME OR SELF CARE INDEPENDEN T WITH USE OF ASSISTIVE DEVICE HH - NO LONGER REQUIRES SKILLED CARE 90.91
--- OUTSIDE RECORDS SUMMARY | 2024-12-30 19:00 | XMS_ITS | Clinical Summary ---
Author Organization Unknown Care Team Providers Care Supervisor Soldering Name Role Phone KENYA SEYMOUR, ADDI Unavailable Unavailable KALIE PT, TAWANA Unavailable Unavailable JEREMY WINDOWS APPLICATION ADMINISTRATOR, YOKASTA Unavailable Unavailable TOÑA DENG, KASSI Unavailable Unavailable AAYLA OT, TD Unavailable Unavailable Payers Payer Name Policy Type Policy Number Effective Date Expira tion Date SHANELLE.AUTH [id number] [facility].[place].AUTH [id number] Problems Condition Name Condition Details Condition Category [...] 40 mg tablet 11-02 00:00: 00 Yes [id number] APPETITE 0.5 tablet 3 TIMES DAILY 0.5 tablet 3 TIMES DAILY (route: oral) Med Classific ation: Antineopl astics hydrocodone 5 mg-acetamin ophen 325 mg tablet 11-01 00:00: 00 Yes [id number] PAIN 1 tablet 3 TIMES DAILY 1 tablet 3 TIMES DAILY (route: oral) Med Classific ation: Analgesic , Anti-infl ammatory or Antipyret ic ropinirole 2 mg tablet 11-01 00:00: 00 Yes [id number] RLS 1 tablet 2 TIMES DAILY 1 tablet 2 TIMES DAILY (route: oral) Med Classific ation: Central Nervous System Agents amlodipine 5 mg tablet 10-16 00:00: 00 Yes [id number] HTN 1 tablet DAILY 1 tablet DAILY (route: oral) Med Classific ation: Cardiovas cular Therapy Agents aspirin 81 mg tablet 04-16 00:00: 00 Yes [id number] CARDIOVASCU LAR 1 tablet DAILY 1 tablet DAILY (route: oral) Med Classific ation: Hematolog ical Agents atorvastati n 80 mg tablet 04-16 00:00: 00 Yes [id number] CHOLESTEROL 1 tablet DAILY 1 tablet DAILY (route: oral) Med Classific ation: Cardiovas cular Therapy Agents carvedilol 12.5 mg tablet 04-16 00:00: 00 Yes [id number] HTN 1 tablet 2 TIMES DAILY 1 tablet 2 TIMES DAILY (route: oral) Med Classific ation: Cardiovas cular Therapy Agents melatonin 3 mg capsule 04-16 00:00: 00 Yes [id number] SLEEP 1 capsule DAILY 1 capsule DAILY (route: oral) Med Classific ation: Central Nervous System Agents nortriptyli ne 25 mg capsule 09-22 00:00: 00 Yes [id number] DEPRESSION 1 capsule BEDTIME 1 capsule BEDTIME (route: oral) Med Classific ation: Central Nervous System Agents Poly-Iron 150 mg iron capsule 1- 00:00: 00 Yes [id number] SUPPLEMENT 1 capsule 2 TIMES DAILY 1 [...] TO EVALUATE, OBSERVE / ASSESS, AND MONITOR, WINDOWS APPLICATION ADMINISTRATOR TO OBSERVE AND MONITOR, PROVIDE SKILLED THERAPEUTIC INTERVENTION, ACTIVITY, EDUCATION, AND TRAINING TO ADDRESS; [code = AGENCY MAY PERFORM A RESUMPTION OF CARE VISIT FOLLOWING ANY HOSPITAL ADMISSION. PT TO EVALUATE, OBSERVE / ASSESS, AND MONITOR, WINDOWS APPLICATION ADMINISTRATOR TO OBSERVE AND MONITOR, PROVIDE SKILLED THERAPEUTIC INTERVENTION, ACTIVITY, EDUCATION, AND TRAINING TO ADDRESS;] Future Scheduled Test BED MOBILI TY (PT/WINDOWS APPLICATION ADMINISTRATOR) [code = BED MOBILITY (PT/WINDOWS APPLICATION ADMINISTRATOR)] Future Scheduled Test SIT TO/FRO M STAND TRANSFERS (PT/WINDOWS APPLICATION ADMINISTRATOR) [code = SIT TO/FROM STAND TRANSFERS (PT/WINDOWS APPLICATION ADMINISTRATOR)] Future Scheduled Test PT/WINDOWS APPLICATION ADMINISTRATOR TO PROVIDE GAIT TRAINING FOR IMPROVED MOBILITY AND /OR TO NORMALIZE GAIT PATTERN [code = PT/WINDOWS APPLICATION ADMINISTRATOR TO PROVIDE GAIT TRAINING FOR IMPROVED MOBILITY AND /OR TO NORMALIZE GAIT PATTERN] Future Scheduled Test NEUROMUSCU LAR RE-EDUCATION / BALANCE / POSTURAL CONTROL (PT) [code = NEUROMUSCULAR RE-EDUCATION / BALANCE / POSTURAL CONTROL (PT)] Future Scheduled Test THERAPEUTI C EXERCISES AND ESTABLISHING A HOME EXERCISE PROGRAM (PT/WINDOWS APPLICATION ADMINISTRATOR) [code = THERAPEUTIC EXERCISES AND ESTABLISHING A HOME EXERCISE PROGRAM (PT/WINDOWS APPLICATION ADMINISTRATOR)] Future Scheduled Test OCCUPATION AL THERAPIST TO EVALUATE FOR BUE WEAKNESS, ADLS/IADLS [code = OCCUPATIONAL THERAPIST TO EVALUATE FOR BUE WEAKNESS, ADLS/IADLS] Future Scheduled Test MEDICAL SO CIAL WORKER TO EVALUATE FOR COMMUNITY^CAREGIVER ASSISTANCE [code = DOLL WIGS HACKLER TO EVALUATE FOR COMMUNITY^CAREGIVER ASSISTANCE] Future Scheduled [...] FOR COMMUNITY RESOURCE PLANNING. [code = MEDICAL AIR QUALITY ENGINEER FOR COMMUNITY RESOURCE PLANNING.] Goal 2024-12-31 Patient [...] End Date/Time Encounter Type Admission Type Attending [facility] Care Department Encounter ID Discharge Date Discharge Status Discharge Condition Discharge Reason Percent Goals Met 2024-11-05 00:00:00 2024-12-31 00:00:00 Outpatient NEW ADMISSION TAWANA JADE [facility] [id number] 2024-12-31 00:00:00 DISCHARGE TO HOME OR SELF CARE INDEPENDEN T WITH USE OF ASSISTIVE DEVICE HH - NO LONGER REQUIRES SKILLED CARE 90.91
[2025-02-27 22:06] LABS: Alanine Aminotransferase 17 U/L (12-78); Albumin Level 4.6 g/dl (3.5-5.0); Albumin/Globulin Ratio 1.4 (1.1-1.8); Alkaline Phosphatase 78 U/L (38-126); Anion Gap 14.5 mEq/L (5-15); Aspartate Amino Transferase 28 U/L (14-36); Bilirubin,Total 0.5 mg/dl (0.2-1.3); Blood Urea Nitrogen 40 mg/dl (7-17); Calcium 9.7 mg/dl (8.4-10.2); Carbon Dioxide 20 mmol/L (22.0-30.0); Chloride 106 mmol/L (98-107); Creatinine,Serum 2.60 mg/dl (0.52-1.04); Estimated Glomerular Filt Rate 18 ml/min (>60); GFR (African American) 21 ML/MIN (>60); Globulin 3.2 g/dL (1.3-3.2); Glucose 98 mg/dl (74-100); Potassium 4.5 mmoL/L (3.5-5.1); Sodium 136 mmol/L (136-145); Total Protein,Serum 7.8 g/dl (6.3-8.2)
--- OUTSIDE RECORDS SUMMARY | 2025-02-28 08:14 | XMS_ITS | Clinical Summary ---
Author Organization [facility] [place] Address [address] [place] [address] Care Team Providers Care Miniature Set Builder Name Role Phone Wilfredo Jacobs APRN Primary Care Provider [phone] Allergies No known active allergies Medications Fluticasone [...] (one) time each day. Active HYDROcodone-acetamin ophen (Fries) 5-325 MG tablet Take 1 tablet (5 mg of hydrocodone ) by mouth 3 (three) times a day if needed. Active rOPINIRole (Requip) 2 MG tablet Take 1 tablet (2 mg) by mouth 2 (two) times a day. Active amLODIPine (Norvasc) 10 MG tablet Take 1 tablet (10 mg) by mouth 1 (one) time each day. Active carvedilol (Coreg) 12.5 MG tablet Take [...] 01/30/2024 Overview (01/30/2024): Replace per ICU protocol CKD (chronic kidney disease) stage 4, GFR 15-29 ml/min 01/01/2019 Resolved Problems Problem Noted Date Diagnosed Date Resolved Date Feeding difficulty in adult 01/31/2024 01/31/2024 Overview (01/31/2024): MASON FOREMAN/SUPERINTENDANT assessment pending DHT if not appropriate for swallow eval TIERRA (acute kidney injury) 01/30/2024 Overview (01/31/2024): Baseline Cr unknown Creatinine, Plasma (mg/dL) Date/Time Value 01/31/2024 0054 2.23 (H) Consider renal U/S as appropriate Monitor renal function daily Avoid nephrotoxins, avoid NSAIDs, renally dose medications Immunizations Immunization Administration Dates Next Due Influenza, [...] place to sleep or slept in a longterm (including now)? No 02/04/2024 CAGE ASSESSMENT Answer Date Recorded Due to the following: Medical status 01/30/2024 Cage max number of drinks Not on file 2023 Cage Beverages a week Not on file 01/30/2024 Cage Questionnaire cut down Not on file 01/14 Cage questionnaire annoyed Not on file 01/29 Cage questionnaire guilty Not on file 2023 Cage questionnaire eye analytical scientist Not on file Cage Overall score [...] [facility]-Bone Density Scan 1943 [facility]-Depression Screening 1943 [facility]-Medicare Annual Wellness (AWV) 1943 [facility]-Infant/Child/Adol SDOH Screenings 1943 [facility]- SDOH Screenings 10/15/1961 [facility]-Adult SDOH Screenings 10/15/1961 [facility]-DTaP,Tdap,and Td Vaccines (1 - Tdap) 10/15/1962 [facility]-Zoster Vaccines (1 of 2) 10/15/1993 [facility]-Pneumococcal Vaccine: 50+ Years (3 of 3 - PCV20 or PCV21) 05/17/2005 05/17/2000, 04/17/1999 [facility]-RSV Vaccine: 60+ Years or (1 - 1-dose 75+ series) 10/15/2018 [id number] Vaccine (5 - season) 2024 02/22/2022, 04/20/2021, 09/29/2020, Additional history exists [facility]-Influenza Vaccine (#1) 12/15/202401/24, 02/21/2023, 01/07/2022, Additional [...] patient's age to complete this topic Insurance [employer] MEDICARE Care Teams Miniature Set Builder Relationship Specialty Start Date End Date Wilfredo Jacobs APRN [address] [place] [address] PCP - General 01/01/24
== END 2025-02-27 23:59 | disposition home or self-care (01) ==
LOC: LAB.DROPOF 02-28 08:11
PROVIDERS: PCP Family Medicine; Visit Provider Family Medicine
DX: I12.9 Hypertensive chronic kidney disease with stage 1 through stage 4 chronic kidney disease, or unspecified chronic kidney disease (principal); N18.9 Chronic kidney disease, unspecified
CPT/HCPCS: 80053